=== PATIENT | male | born 1965 | race Caucasian/White ===

== ENCOUNTER 2021-01-24 22:00 | Inpatient (IN) ==
[2021-01-24 23:27] LABS: Basophils # (auto) 0.04 K/uL (0-0.2); Basophils % (auto) 0.3 %; Eosinophils # (auto) 0.28 K/uL (0-0.5); Eosinophils % (auto) 2.3 %; Hematocrit (blood only) 38.4 % (42-52); Hemoglobin 12.8 g/dL (14.0-18.0); Immature Granulocytes # (auto) 0.05 K/uL (0.00-0.02); Immature Granulocytes % (auto) 0.4 %; Lymphocytes % (auto) 18.6 %; Mean Corpuscular Hgb Conc 33.3 g/dL (32-36); Mean Corpuscular Volume 86.9 fL (80-100); Mean Platelet Volume 8.6 fL (7.4-10.4); Monocytes # (auto) 0.82 K/uL (0.11-0.59); Monocytes % (auto) 6.6 %; Neutrophils # (auto) 8.85 K/uL (1.4-6.5); Neutrophils % (auto) 71.8 %; Platelet Count 337 K/uL (130-400); RDW Coefficient of Variation 13.7 % (11.5-14.5); RDW Standard Deviation 43.7 fL (36.4-46.3); Red Blood Count 4.42 M/uL (4.7-6.1); White Blood Count 12.34 K/uL (4.8-10.8)
[2021-01-24 23:38] LABS: Appearance Urine Clear (Clear); Bacteria Urine Automated Negative (Negative); Blood Urine 2+ (Negative); Color Urine Dark Yellow; Glucose Urine UA Negative (Negative); Ketones Urine 1+ (Negative); Leukocyte Esterase Urine Negative (Negative); Nitrite Urine Negative (Negative); Protein Urine 1+ (Negative); Specific Gravity Urine 1.029 (1.000-1.030); Urobilinogen Urine Negative (Negative); pH Urine 5.5 (4.5-7.5)
[2021-01-24 23:39] LABS: Bilirubin Urine 1+ (Negative)
[2021-01-24 23:58] LABS: Acetaminophen < 2 ug/ml (10-30); Salicylate 2.2 mg/dl (2.8-20)
[2021-01-25 00:12] LABS: Albumin Level 3.9 gm/dl (3.4-5.0); BUN Creatinine Ratio 18.8 (10-20); Calcium 8.9 mg/dl (8.5-10.1); Creatinine Clr Calc Pharmacy 96.5 ml/min; Est GFR (African American) 108.9 ml/min; Potassium 3.7 mmol/L (3.5-5.1)
[2021-01-25 00:17] LABS: Amphetamines+Metham, Urine Neg (Neg); Barbiturates, Urine Neg (Neg); Benzodiazepine, Urine Neg (Neg); Cocaine, Urine Neg (Neg); MDMA (Ecstacy), Urine Neg (Neg); Methadone, Urine Neg (Neg); Opiate, Urine Pos (Neg); Phencyclidine, Urine Neg (Neg)
[2021-01-25 00:23] LABS: Albumin Globulin Ratio 1.3 (0.9-2); Bilirubin,Total 0.7 mg/dl (0.2-1); Thyroid Stimulating Hormone 1.87 uIu/ml (0.300-4.500); Total Protein 6.9 gm/dl (6.4-8.2)
--- NOTE | 2021-01-25 00:23 | Emergency Department Note ---
Impression & Plan Vikash Admit to the [facility] ED Provider Note NAME: JEFFERY PARRISH III AGE: 55 SEX: M ARRIVES VIA: Walk-In INFORMANT: Patient and mobile face worker ED PROVIDER(S): Sherie Jones DO CHIEF COMPLAINT: Acute vikash PLAN: Disposition: Admit to the [facility] Condition: Stable MEDICAL DECISION MAKING: This is a 55-year-old male patient with history of bipolar 1 disorder who presents to the emergency room department with acute vikash. Patient was brought here on a 302 warrant with state police. The patient was found walking in his underwear [place]. He missed his appointment today with his psychiatrist. His sister called police when he returned home and broke the windows in his home. The patient was evaluated and was medically cleared. He was evaluated by the ED psychiatric therapeutic case manager. The patient will require inpatient psychiatric care. His Covid testing was positive so I discussed the case with Dr. Quick from the [facility] group and he will evaluate for further management. Triage Nursing notes reviewed and agree with them. Additional history obtained from police and mobile crisis Prior medical records reviewed Vital Signs: reviewed and remarkable for hypertension Differential diagnosis: Medication noncompliance, drug abuse, acute vikash, shoulder injury, burn secondary to heating pad, ER treatment provided: Diagnostics interpreted by me: Laboratory studies: See below HPI: 55/M arrives for evaluation of vikash. The patient explains that his left him on December 24 after a of a family member. He admits that he does not of loved ones well. He became acutely manic. He describes this episode was over a dispute with a neighbor. He describes running through the [place] tonight and then breaking windows and furniture in his home. He was brought to the emergency department tonight by the police for evaluation. He does describe struggling with the police and suffering an injury to his left shoulder while struggling with them. He also describes having chronic neck and back pain. He suffered rascon to his low back from using a heating pad couple weeks ago. ROS: See above HPI for pertinent positives & negatives. A total of 10 systems reviewed and were otherwise negative. PAST MEDICAL HISTORY:Bipolar disorder PAST SURGICAL HISTORY:See Below FAMILY HISTORY:See Below SOCIAL HISTORY:Patient is currently living alone, he has a medical marijuana card. He does smoke tobacco. He does occasionally drink alcohol HOME MEDICATIONS:See list ALLERGIES:See list VITALS:See Below PHYSICAL EXAMINATION: HEENT: Head - normocephalic and atraumatic. Pupils are equal, round, and reactive to light. Extraocular eye muscles are intact, and sclera are anicteric. Nose - moist nasal mucosa without discharge. Mouth - moist buccal mucosa. Oropharynx is nonerythematous and there is no tonsillar exudate or edema noted. Neck: Supple; no cervical lymphadenopathy or JVD Heart: Regular rate and rhythm. There is a normal S1 and S2 with no murmurs, clicks, or gallops appreciated. Lungs: Clear to auscultation bilaterally with no wheezes, rales, or rhonchi. Abdomen: Soft, completely nontender, nondistended, with good bowel sounds. There are no palpable pulsatile masses or hepatosplenomegaly. There is no guarding, rigidity, or rebound noted. Extremities: 1+ edema to both lower extremities. Skin: warm and dry with good turgor and no rashes. The patient has scabbed over rascon to his low back and buttocks. He has superficial abrasions to both lower extremities which appear slightly erythematous Psych: The patient is extremely manic with a tangential thought process. He easily becomes angry with communication. He describes self-injurious behavior but does not describe being suicidal or homicidal. ED COURSE: The patient was evaluated in room A 5 along with the ED psychiatric therapeutic case manager. Laboratory studies were drawn as above. The patient was felt to be medically cleared. He was evaluated by the ED psychiatric therapeutic case manager. The patient's Covid testing was positive. I then discussed the case with Dr. Quick who will evaluate for further management. Sherie Jones DO Past Med/Surg History Social History Smoking Status: Current every day smoker Tobacco Type: Cigarettes Preferred Language: Sammarinese Feels Safe at Home: Yes Allergies Allergies Allergy/AdvReac Type Severity Reaction Status Date / Time Penicillins Allergy Unknown AMPICILIN-R Verified 01/25/21 07:30 DORIS/HIVES Home Meds Home Medications Medication Instructions Recorded Confirmed amlodipine 10 mg tablet (Norvasc) 10 mg PO DAILY 01/25/21 01/25/21 famotidine 20 mg tablet (Pepcid) 20 mg PO DAILY 01/25/21 01/25/21 gabapentin 400 mg capsule 400 mg PO DAILY 01/25/21 01/25/21 (Neurontin) hydrochlorothiazide 25 mg tablet 25 mg PO DAILY 01/25/21 01/25/21 liothyronine 5 mcg tablet (Cytomel) 5 mcg PO QAM 01/25/21 01/25/21 lisinopril 40 mg tablet (Zestril) 40 mg PO DAILY 01/25/21 01/25/21 lithium carbonate 300 mg 600 mg PO HS 01/25/21 01/25/21 tablet,extended release (Lithobid) lorazepam 0.5 mg tablet (Ativan) 0.5 mg PO DAILY PRN 01/25/21 01/25/21 omeprazole 40 mg capsule,delayed 40 mg PO DAILY 01/25/21 01/25/21 release quetiapine 200 mg tablet (Seroquel) 200 mg PO HS 01/25/21 01/25/21 quetiapine 25 mg tablet (Seroquel) 100 mg PO HS 01/25/21 01/25/21 simvastatin 20 mg tablet (Zocor) 20 mg PO HS 01/25/21 01/25/21 tizanidine 2 mg capsule (Zanaflex) 2 mg PO TID 01/25/21 01/25/21 tramadol 50 mg tablet (Ultram) 50 mg PO Q6H PRN 01/25/21 01/25/21 Results & Data (ED) Vital Signs Vital Signs - 24 hr 01/24/21 22:08 01/25/21 00:30 01/25/21 06:57 Temperature 36.3 C L Temperature Source Temporal Artery Scan Pulse Rate 94 H Pulse Rate [Finger] 80 92 H Respiratory Rate 19 18 20 Respiratory Effort / Characteristics Non-Labored Non-Labored Spontaneous Respiratory Depth Normal Normal Respiratory Pattern Regular Blood Pressure 179/90 H Blood Pressure [Left Arm] 162/89 H Blood Pressure Mean 119 Blood Pressure Mean [Left Arm] 113 Pulse Oximetry 97 98 99 Oxygen Delivery Method Room Air Room Air Sepsis Recent Fever Within 48 Hours No Sepsis New/Unexplained Change in Mental Status N/A Sepsis Action Taken by Nursing No Action Required Laboratory Data Result diagrams: 01/25/21 05:14 01/24/21 23:13 Lab Results 01/24/21 01/24/21 01/24/21 Range/Units 23:13 23:13 23:13 WBC 12.34 H (4.8-10.8) K/uL RBC 4.42 L (4.7-6.1) M/uL Hgb 12.8 L (14.0-18.0) g/dL Hct 38.4 L (42-52) % MCV 86.9 (80-100) fL MCH 29.0 (25-34) pg MCHC 33.3 (32-36) g/dL RDW Std Deviation 43.7 (36.4-46.3) fL RDW Coeff of Dmitry 13.7 (11.5-14.5) % Plt Count 337 (130-400) K/uL MPV 8.6 (7.4-10.4) fL Immature Gran % (Auto) 0.4 % Neut % (Auto) 71.8 % Lymph % (Auto) 18.6 % [place] % (Auto) 6.6 % Eos % (Auto) 2.3 % Baso % (Auto) 0.3 % Reticulocyte % (Auto) (0.5-2.0) % Neut # (Auto) 8.85 H (1.4-6.5) K/uL Lymph # (Auto) 2.30 (1.2-3.4) K/uL [place] # (Auto) 0.82 H (0.11-0.59) K/uL Eos # (Auto) 0.28 (0-0.5) K/uL Baso # (Auto) 0.04 (0-0.2) K/uL Reticulocyte # (0.02-0.10) 10^6/uL Immature Gran # (Auto) 0.05 H (0.00-0.02) K/uL PT (9.0-12.0) Seconds INR (0.9-1.1) Sodium 135 L (136-145) mmol/L Potassium 3.7 (3.5-5.1) mmol/L Chloride 105 (98-107) mmol/L Carbon Dioxide 23 (21-32) mmol/L Anion Gap 8.0 (3-11) BUN 17 (7-18) mg/dl Creatinine 0.92 (0.6-1.4) mg/dl Est Cr Clr Drug Dosing 96.5 ml/min Est GFR ( Amer) 108.9 ml/min Est GFR (Non-Af Amer) 94.0 ml/min BUN/Creatinine Ratio 18.8 (10-20) Glucose 92 (70-99) mg/dl Lactate (0.4-2.0) mmol/L Calcium 8.9 (8.5-10.1) mg/dl Iron (35-175) mcg/dl TIBC (250-450) mcg/dl Transferrin (200-360) mg/dl Ferritin (8-388) ng/ml Total Bilirubin 0.7 (0.2-1) mg/dl AST 116 H (15-37) U/L ALT 113 H (12-78) U/L Alkaline Phosphatase 70 (45-117) U/L Ammonia (11-32) umol/L Total Creatine Kinase 2588 H (39-308) U/L Total Protein 6.9 (6.4-8.2) gm/dl Albumin 3.9 (3.4-5.0) gm/dl Globulin 3.0 (2.5-4.0) gm/dl Albumin/Globulin Ratio 1.3 (0.9-2) Lipase (73-393) U/L Vitamin B12 (193-986) pg/ml Folate (>5.38) ng/ml Procalcitonin (0-0.5) ng/ml TSH 1.870 (0.300-4.500) uIu/ml Urine Color Urine Appearance (Clear) Urine pH (4.5-7.5) Ur Specific [place] (1.000-1.030) Urine Protein (Negative) Urine Glucose (UA) (Negative) Urine Ketones (Negative) Urine Blood (Negative) Urine Nitrite (Negative) Urine Bilirubin (Negative) Urine Urobilinogen (Negative) Ur Leukocyte Esterase (Negative) Urine WBC (Auto) (0-5) /hpf Urine RBC (Auto) (0-4) /hpf U Hyaline Cast (Auto) (0-5) /lpf U Epithel Cells (Auto) (0-5) /lpf Urine Bacteria (Auto) (Negative) Salicylates 2.2 L (2.8-20) mg/dl Urine Opiates Screen (Neg) Ur Methadone, Qual (Neg) Acetaminophen < 2 L (10-30) ug/ml Urine Barbiturates (Neg) Valproic Acid (50-100) mcg/ml Ur Phencyclidine (PCP) (Neg) U Amphetamin/Meth Scrn (Neg) MDMA (Ecstasy) Screen (Neg) U Benzodiazepines Scrn (Neg) [place] (0.6-1.2) mmol/L Ur Cocaine Metabolite (Neg) U Marijuana (THC) Screen (Neg) Ethyl Alcohol mg/dL (0-3) mg/dl COVID-19 Eval Order SARS-CoV-2, RNA, NAAT (NEGATIVE) Blood Type Antibody Screen 01/24/21 01/24/21 01/24/21 Range/Units 23:13 23:13 23:26 WBC (4.8-10.8) K/uL RBC (4.7-6.1) M/uL Hgb (14.0-18.0) g/dL Hct (42-52) % MCV (80-100) fL MCH (25-34) pg MCHC (32-36) g/dL RDW Std Deviation (36.4-46.3) fL RDW Coeff of Dmitry (11.5-14.5) % Plt Count (130-400) K/uL MPV (7.4-10.4) fL Immature Gran % (Auto) % Neut % (Auto) % Lymph % (Auto) % [place] % (Auto) % Eos % (Auto) % Baso % (Auto) % Reticulocyte % (Auto) (0.5-2.0) % Neut # (Auto) (1.4-6.5) K/uL Lymph # (Auto) (1.2-3.4) K/uL [place] # (Auto) (0.11-0.59) K/uL Eos # (Auto) (0-0.5) K/uL Baso # (Auto) (0-0.2) K/uL Reticulocyte # (0.02-0.10) 10^6/uL Immature Gran # (Auto) (0.00-0.02) K/uL PT (9.0-12.0) Seconds INR (0.9-1.1) Sodium (136-145) mmol/L Potassium (3.5-5.1) mmol/L Chloride (98-107) mmol/L Carbon Dioxide (21-32) mmol/L Anion Gap (3-11) BUN (7-18) mg/dl Creatinine (0.6-1.4) mg/dl Est Cr Clr Drug Dosing ml/min Est GFR ( Amer) ml/min Est GFR (Non-Af Amer) ml/min BUN/Creatinine Ratio (10-20) Glucose (70-99) mg/dl Lactate (0.4-2.0) mmol/L Calcium (8.5-10.1) mg/dl Iron (35-175) mcg/dl TIBC (250-450) mcg/dl Transferrin (200-360) mg/dl Ferritin (8-388) ng/ml Total Bilirubin (0.2-1) mg/dl AST (15-37) U/L ALT (12-78) U/L Alkaline Phosphatase (45-117) U/L Ammonia (11-32) umol/L Total Creatine Kinase (39-308) U/L Total Protein (6.4-8.2) gm/dl Albumin (3.4-5.0) gm/dl Globulin (2.5-4.0) gm/dl Albumin/Globulin Ratio (0.9-2) Lipase (73-393) U/L Vitamin B12 (193-986) pg/ml Folate (>5.38) ng/ml Procalcitonin < 0.05 (0-0.5) ng/ml TSH (0.300-4.500) uIu/ml Urine Color Dark Yellow Urine Appearance Clear (Clear) Urine pH 5.5 (4.5-7.5) Ur Specific [place] 1.029 (1.000-1.030) Urine Protein 1+ H (Negative) Urine Glucose (UA) Negative (Negative) Urine Ketones 1+ H (Negative) Urine Blood 2+ H (Negative) Urine Nitrite Negative (Negative) Urine Bilirubin 1+ H (Negative) Urine Urobilinogen Negative (Negative) Ur Leukocyte Esterase Negative (Negative) Urine WBC (Auto) 1-5 (0-5) /hpf Urine RBC (Auto) 5-10 H (0-4) /hpf U Hyaline Cast (Auto) 5-10 H (0-5) /lpf U Epithel Cells (Auto) 10-20 H (0-5) /lpf Urine Bacteria (Auto) Negative (Negative) Salicylates (2.8-20) mg/dl Urine Opiates Screen (Neg) Ur Methadone, Qual (Neg) Acetaminophen (10-30) ug/ml Urine Barbiturates (Neg) Valproic Acid (50-100) mcg/ml Ur Phencyclidine (PCP) (Neg) U Amphetamin/Meth Scrn (Neg) MDMA (Ecstasy) Screen (Neg) U Benzodiazepines Scrn (Neg) [place] (0.6-1.2) mmol/L Ur Cocaine Metabolite (Neg) U Marijuana (THC) Screen (Neg) Ethyl Alcohol mg/dL < 3.0 (0-3) mg/dl COVID-19 Eval Order SARS-CoV-2, RNA, NAAT (NEGATIVE) Blood Type Antibody Screen 01/24/21 01/25/21 01/25/21 Range/Units 23:26 01:38 01:38 WBC (4.8-10.8) K/uL RBC (4.7-6.1) M/uL Hgb (14.0-18.0) g/dL Hct (42-52) % MCV (80-100) fL MCH (25-34) pg MCHC (32-36) g/dL RDW Std Deviation (36.4-46.3) fL RDW Coeff of Dmitry (11.5-14.5) % Plt Count (130-400) K/uL MPV (7.4-10.4) fL Immature Gran % (Auto) % Neut % (Auto) % Lymph % (Auto) % [place] % (Auto) % Eos % (Auto) % Baso % (Auto) % Reticulocyte % (Auto) (0.5-2.0) % Neut # (Auto) (1.4-6.5) K/uL Lymph # (Auto) (1.2-3.4) K/uL [place] # (Auto) (0.11-0.59) K/uL Eos # (Auto) (0-0.5) K/uL Baso # (Auto) (0-0.2) K/uL Reticulocyte # (0.02-0.10) 10^6/uL Immature Gran # (Auto) (0.00-0.02) K/uL PT (9.0-12.0) Seconds INR (0.9-1.1) Sodium (136-145) mmol/L Potassium (3.5-5.1) mmol/L Chloride (98-107) mmol/L Carbon Dioxide (21-32) mmol/L Anion Gap (3-11) BUN (7-18) mg/dl Creatinine (0.6-1.4) mg/dl Est Cr Clr Drug Dosing ml/min Est GFR ( Amer) ml/min Est GFR (Non-Af Amer) ml/min BUN/Creatinine Ratio (10-20) Glucose (70-99) mg/dl Lactate (0.4-2.0) mmol/L Calcium (8.5-10.1) mg/dl Iron (35-175) mcg/dl TIBC (250-450) mcg/dl Transferrin (200-360) mg/dl Ferritin (8-388) ng/ml Total Bilirubin (0.2-1) mg/dl AST (15-37) U/L ALT (12-78) U/L Alkaline Phosphatase (45-117) U/L Ammonia (11-32) umol/L Total Creatine Kinase (39-308) U/L Total Protein (6.4-8.2) gm/dl Albumin (3.4-5.0) gm/dl Globulin (2.5-4.0) gm/dl Albumin/Globulin Ratio (0.9-2) Lipase (73-393) U/L Vitamin B12 (193-986) pg/ml Folate (>5.38) ng/ml Procalcitonin (0-0.5) ng/ml TSH (0.300-4.500) uIu/ml Urine Color Urine Appearance (Clear) Urine pH (4.5-7.5) Ur Specific [place] (1.000-1.030) Urine Protein (Negative) Urine Glucose (UA) (Negative) Urine Ketones (Negative) Urine Blood (Negative) Urine Nitrite (Negative) Urine Bilirubin (Negative) Urine Urobilinogen (Negative) Ur Leukocyte Esterase (Negative) Urine WBC (Auto) (0-5) /hpf Urine RBC (Auto) (0-4) /hpf U Hyaline Cast (Auto) (0-5) /lpf U Epithel Cells (Auto) (0-5) /lpf Urine Bacteria (Auto) (Negative) Salicylates (2.8-20) mg/dl Urine Opiates Screen Pos H (Neg) Ur Methadone, Qual Neg (Neg) Acetaminophen (10-30) ug/ml Urine Barbiturates Neg (Neg) Valproic Acid (50-100) mcg/ml Ur Phencyclidine (PCP) Neg (Neg) U Amphetamin/Meth Scrn Neg (Neg) MDMA (Ecstasy) Screen Neg (Neg) U Benzodiazepines Scrn Neg (Neg) [place] (0.6-1.2) mmol/L Ur Cocaine Metabolite Neg (Neg) U Marijuana (THC) Screen Pos H (Neg) Ethyl Alcohol mg/dL (0-3) mg/dl COVID-19 Eval Order Covid19 [facility] SARS-CoV-2, RNA, NAAT POSITIVE A* (NEGATIVE) Blood Type Antibody Screen 01/25/21 01/25/21 01/25/21 Range/Units 05:14 05:14 05:14 WBC (4.8-10.8) K/uL RBC (4.7-6.1) M/uL Hgb (14.0-18.0) g/dL Hct (42-52) % MCV (80-100) fL MCH (25-34) pg MCHC (32-36) g/dL RDW Std Deviation (36.4-46.3) fL RDW Coeff of Dmitry (11.5-14.5) % Plt Count (130-400) K/uL MPV (7.4-10.4) fL Immature Gran % (Auto) % Neut % (Auto) % Lymph % (Auto) % [place] % (Auto) % Eos % (Auto) % Baso % (Auto) % Reticulocyte % (Auto) (0.5-2.0) % Neut # (Auto) (1.4-6.5) K/uL Lymph # (Auto) (1.2-3.4) K/uL [place] # (Auto) (0.11-0.59) K/uL Eos # (Auto) (0-0.5) K/uL Baso # (Auto) (0-0.2) K/uL Reticulocyte # (0.02-0.10) 10^6/uL Immature Gran # (Auto) (0.00-0.02) K/uL PT 9.9 (9.0-12.0) Seconds INR 1.0 (0.9-1.1) Sodium (136-145) mmol/L Potassium (3.5-5.1) mmol/L Chloride (98-107) mmol/L Carbon Dioxide (21-32) mmol/L Anion Gap (3-11) BUN (7-18) mg/dl Creatinine (0.6-1.4) mg/dl Est Cr Clr Drug Dosing ml/min Est GFR ( Amer) ml/min Est GFR (Non-Af Amer) ml/min BUN/Creatinine Ratio (10-20) Glucose (70-99) mg/dl Lactate (0.4-2.0) mmol/L Calcium (8.5-10.1) mg/dl Iron (35-175) mcg/dl TIBC (250-450) mcg/dl Transferrin (200-360) mg/dl Ferritin (8-388) ng/ml Total Bilirubin (0.2-1) mg/dl AST (15-37) U/L ALT (12-78) U/L Alkaline Phosphatase (45-117) U/L Ammonia 16.0 (11-32) umol/L Total Creatine Kinase (39-308) U/L Total Protein (6.4-8.2) gm/dl Albumin (3.4-5.0) gm/dl Globulin (2.5-4.0) gm/dl Albumin/Globulin Ratio (0.9-2) Lipase (73-393) U/L Vitamin B12 (193-986) pg/ml Folate (>5.38) ng/ml Procalcitonin (0-0.5) ng/ml TSH (0.300-4.500) uIu/ml Urine Color Urine Appearance (Clear) Urine pH (4.5-7.5) Ur Specific [place] (1.000-1.030) Urine Protein (Negative) Urine Glucose (UA) (Negative) Urine Ketones (Negative) Urine Blood (Negative) Urine Nitrite (Negative) Urine Bilirubin (Negative) Urine Urobilinogen (Negative) Ur Leukocyte Esterase (Negative) Urine WBC (Auto) (0-5) /hpf Urine RBC (Auto) (0-4) /hpf U Hyaline Cast (Auto) (0-5) /lpf U Epithel Cells (Auto) (0-5) /lpf Urine Bacteria (Auto) (Negative) Salicylates (2.8-20) mg/dl Urine Opiates Screen (Neg) Ur Methadone, Qual (Neg) Acetaminophen (10-30) ug/ml Urine Barbiturates (Neg) Valproic Acid (50-100) mcg/ml Ur Phencyclidine (PCP) (Neg) U Amphetamin/Meth Scrn (Neg) MDMA (Ecstasy) Screen (Neg) U Benzodiazepines Scrn (Neg) [place] (0.6-1.2) mmol/L Ur Cocaine Metabolite (Neg) U Marijuana (THC) Screen (Neg) Ethyl Alcohol mg/dL (0-3) mg/dl COVID-19 Eval Order SARS-CoV-2, RNA, NAAT (NEGATIVE) Blood Type O Positive Antibody Screen NEGATIVE 01/25/21 01/25/21 01/25/21 Range/Units 05:14 05:14 05:14 WBC 10.20 (4.8-10.8) K/uL RBC 4.03 L (4.7-6.1) M/uL Hgb 12.1 L (14.0-18.0) g/dL Hct 35.8 L (42-52) % MCV 88.8 (80-100) fL MCH 30.0 (25-34) pg MCHC 33.8 (32-36) g/dL RDW Std Deviation 44.8 (36.4-46.3) fL RDW Coeff of Dmitry 13.8 (11.5-14.5) % Plt Count 318 (130-400) K/uL MPV 8.7 (7.4-10.4) fL Immature Gran % (Auto) 0.3 % Neut % (Auto) 66.6 % Lymph % (Auto) 23.0 % [place] % (Auto) 7.5 % Eos % (Auto) 2.3 % Baso % (Auto) 0.3 % Reticulocyte % (Auto) 1.7 (0.5-2.0) % Neut # (Auto) 6.80 H (1.4-6.5) K/uL Lymph # (Auto) 2.35 (1.2-3.4) K/uL [place] # (Auto) 0.76 H (0.11-0.59) K/uL Eos # (Auto) 0.23 (0-0.5) K/uL Baso # (Auto) 0.03 (0-0.2) K/uL Reticulocyte # 0.07 (0.02-0.10) 10^6/uL Immature Gran # (Auto) 0.03 H (0.00-0.02) K/uL PT (9.0-12.0) Seconds INR (0.9-1.1) Sodium (136-145) mmol/L Potassium (3.5-5.1) mmol/L Chloride (98-107) mmol/L Carbon Dioxide (21-32) mmol/L Anion Gap (3-11) BUN (7-18) mg/dl Creatinine (0.6-1.4) mg/dl Est Cr Clr Drug Dosing ml/min Est GFR ( Amer) ml/min Est GFR (Non-Af Amer) ml/min BUN/Creatinine Ratio (10-20) Glucose (70-99) mg/dl Lactate 0.7 (0.4-2.0) mmol/L Calcium (8.5-10.1) mg/dl Iron (35-175) mcg/dl TIBC (250-450) mcg/dl Transferrin (200-360) mg/dl Ferritin (8-388) ng/ml Total Bilirubin (0.2-1) mg/dl AST (15-37) U/L ALT (12-78) U/L Alkaline Phosphatase (45-117) U/L Ammonia (11-32) umol/L Total Creatine Kinase (39-308) U/L Total Protein (6.4-8.2) gm/dl Albumin (3.4-5.0) gm/dl Globulin (2.5-4.0) gm/dl Albumin/Globulin Ratio (0.9-2) Lipase (73-393) U/L Vitamin B12 (193-986) pg/ml Folate (>5.38) ng/ml Procalcitonin (0-0.5) ng/ml TSH (0.300-4.500) uIu/ml Urine Color Urine Appearance (Clear) Urine pH (4.5-7.5) Ur Specific [place] (1.000-1.030) Urine Protein (Negative) Urine Glucose (UA) (Negative) Urine Ketones (Negative) Urine Blood (Negative) Urine Nitrite (Negative) Urine Bilirubin (Negative) Urine Urobilinogen (Negative) Ur Leukocyte Esterase (Negative) Urine WBC (Auto) (0-5) /hpf Urine RBC (Auto) (0-4) /hpf U Hyaline Cast (Auto) (0-5) /lpf U Epithel Cells (Auto) (0-5) /lpf Urine Bacteria (Auto) (Negative) Salicylates (2.8-20) mg/dl Urine Opiates Screen (Neg) Ur Methadone, Qual (Neg) Acetaminophen (10-30) ug/ml Urine Barbiturates (Neg) Valproic Acid < 3 L (50-100) mcg/ml Ur Phencyclidine (PCP) (Neg) U Amphetamin/Meth Scrn (Neg) MDMA (Ecstasy) Screen (Neg) U Benzodiazepines Scrn (Neg) [place] 0.3 L (0.6-1.2) mmol/L Ur Cocaine Metabolite (Neg) U Marijuana (THC) Screen (Neg) Ethyl Alcohol mg/dL (0-3) mg/dl COVID-19 Eval Order SARS-CoV-2, RNA, NAAT (NEGATIVE) Blood Type Antibody Screen 01/25/21 01/25/21 Range/Units 05:14 05:14 WBC (4.8-10.8) K/uL RBC (4.7-6.1) M/uL Hgb (14.0-18.0) g/dL Hct (42-52) % MCV (80-100) fL MCH (25-34) pg MCHC (32-36) g/dL RDW Std Deviation (36.4-46.3) fL RDW Coeff of Dmitry (11.5-14.5) % Plt Count (130-400) K/uL MPV (7.4-10.4) fL Immature Gran % (Auto) % Neut % (Auto) % Lymph % (Auto) % [place] % (Auto) % Eos % (Auto) % Baso % (Auto) % Reticulocyte % (Auto) (0.5-2.0) % Neut # (Auto) (1.4-6.5) K/uL Lymph # (Auto) (1.2-3.4) K/uL [place] # (Auto) (0.11-0.59) K/uL Eos # (Auto) (0-0.5) K/uL Baso # (Auto) (0-0.2) K/uL Reticulocyte # (0.02-0.10) 10^6/uL Immature Gran # (Auto) (0.00-0.02) K/uL PT (9.0-12.0) Seconds INR (0.9-1.1) Sodium (136-145) mmol/L Potassium (3.5-5.1) mmol/L Chloride (98-107) mmol/L Carbon Dioxide (21-32) mmol/L Anion Gap (3-11) BUN (7-18) mg/dl Creatinine (0.6-1.4) mg/dl Est Cr Clr Drug Dosing ml/min Est GFR ( Amer) ml/min Est GFR (Non-Af Amer) ml/min BUN/Creatinine Ratio (10-20) Glucose (70-99) mg/dl Lactate (0.4-2.0) mmol/L Calcium (8.5-10.1) mg/dl Iron 26 L (35-175) mcg/dl TIBC 330 (250-450) mcg/dl Transferrin 231 (200-360) mg/dl Ferritin 104.6 (8-388) ng/ml Total Bilirubin (0.2-1) mg/dl AST (15-37) U/L ALT (12-78) U/L Alkaline Phosphatase (45-117) U/L Ammonia (11-32) umol/L Total Creatine Kinase (39-308) U/L Total Protein (6.4-8.2) gm/dl Albumin (3.4-5.0) gm/dl Globulin (2.5-4.0) gm/dl Albumin/Globulin Ratio (0.9-2) Lipase 122 (73-393) U/L Vitamin B12 1701 H (193-986) pg/ml Folate > 20.00 (>5.38) ng/ml Procalcitonin (0-0.5) ng/ml TSH (0.300-4.500) uIu/ml Urine Color Urine Appearance (Clear) Urine pH (4.5-7.5) Ur Specific [place] (1.000-1.030) Urine Protein (Negative) Urine Glucose (UA) (Negative) Urine Ketones (Negative) Urine Blood (Negative) Urine Nitrite (Negative) Urine Bilirubin (Negative) Urine Urobilinogen (Negative) Ur Leukocyte Esterase (Negative) Urine WBC (Auto) (0-5) /hpf Urine RBC (Auto) (0-4) /hpf U Hyaline Cast (Auto) (0-5) /lpf U Epithel Cells (Auto) (0-5) /lpf Urine Bacteria (Auto) (Negative) Salicylates (2.8-20) mg/dl Urine Opiates Screen (Neg) Ur Methadone, Qual (Neg) Acetaminophen (10-30) ug/ml Urine Barbiturates (Neg) Valproic Acid (50-100) mcg/ml Ur Phencyclidine (PCP) (Neg) U Amphetamin/Meth Scrn (Neg) MDMA (Ecstasy) Screen (Neg) U Benzodiazepines Scrn (Neg) [place] (0.6-1.2) mmol/L Ur Cocaine Metabolite (Neg) U Marijuana (THC) Screen (Neg) Ethyl Alcohol mg/dL (0-3) mg/dl COVID-19 Eval Order SARS-CoV-2, RNA, NAAT (NEGATIVE) Blood Type Antibody Screen Administered Medications Potassium Chloride 20 meq/ (Lactated Ringer's) 1,010 mls @ 80 mls/hr IV .[id number] TRACY Stop: 01/26/21 04:44 Last Admin: 01/25/21 06:12 Dose: 80 mls/hr Documented by: [id number] Discontinued Medications Acetaminophen (Acetaminophen 500 Mg Tab) Confirm Administered Dose 1,000 mg .ROUTE .STK-MED ONE Stop: 01/25/21 02:34 Last Admin: 01/25/21 02:35 Dose: 1,000 mg Documented by: [id number] Acetaminophen (Acetaminophen 500 Mg Tab) 1,000 mg PO NOW STA Stop: 01/25/21 02:38 Last Admin: 01/25/21 02:38 Dose: Not Given Documented by: [id number] Pantoprazole Sodium 40 mg/ (Syringe) 10 mls @ 5 mls/min IV NOW ONE Stop: 01/25/21 04:16 Last Admin: 01/25/21 05:23 Dose: 5 mls/min Documented by: [id number] Doxycycline Hyclate 100 mg/ (Dextrose) 110 mls @ 50 mls/hr IV NOW STA Stop: 01/25/21 06:17 Last Admin: 01/25/21 06:13 Dose: 50 mls/hr Documented by: [id number] Potassium Chloride 40 meq/ (Sodium Chloride) 1,020 mls @ 50 mls/hr IV .[id number] ONE Stop: 01/26/21 00:53 Last Admin: 01/25/21 05:42 Dose: Not Given Documented by: [id number] Lorazepam (Lorazepam 1 Mg Tab) 1 mg SL NOW STA Stop: 01/25/21 02:46 Last Admin: 01/25/21 06:19 Dose: Not Given Documented by: [id number] Lorazepam (Lorazepam 1 Mg Tab) Confirm Administered Dose 1 mg .ROUTE .STK-MED ONE Stop: 01/25/21 06:17 Last Admin: 01/25/21 06:19 Dose: 1 mg Documented by: [id number] Imaging Data Radiologist's Impression: Chest X-Ray 01/25/21 03:21 XR chest 1V portable HISTORY: sepsis COMPARISON: None. FINDINGS: The lungs are clear. Cardiac silhouette is normal in size. No pleural effusions. No pneumothorax. IMPRESSION: No acute process. ACT 112: Negative or not required by law. Electronically signed by: Shilo Sandoval M.D. 01/25/2021 7:53 AM Venous Doppler Study 01/25/21 04:16 BILATERAL LOWER EXTREMITY VENOUS DOPPLER CLINICAL HISTORY: leg swelling COMPARISON STUDY: No previous studies for comparison. TECHNIQUE: Sonography of the deep venous system of the bilateral lower extr emities was performed. Compression and augmentation were evaluated. FINDINGS: This exam was technically difficult. The bilateral common femoral, superficial femoral and popliteal veins were compressible. Augmentation was normal. Flow was shown within the deep calf vessels. IMPRESSION: Technically difficult exam but no evidence of deep venous thrombus within the bilateral lower extremities. ACT 112: Negative or not required by law. Electronically signed by: Santino Smith M.D. 01/25/2021 6:42 AM Discharge Plan Visit Data Chief Complaint: Mental Health Evaluation Stated Complaint: Mental Health Evaluation ED Provider: Sherie Jones Discharge Problem: Vikash Patient Disposition: Admitted As Inpatient Discharge Instructions Interventions: ED Discharge Assessment Last Done: 01/25/21 07:53 Forms Stand Alone Forms: [facility] [employer], Suicide Prevention Resources Prescriptions Prescriptions: No Action quetiapine [Seroquel] 25 mg tablet 100 mg PO HS RF: 0 gabapentin [Neurontin] 400 mg capsule 400 mg PO DAILY RF: 0 quetiapine [Seroquel] 200 mg tablet 200 mg PO HS RF: 0 lithium carbonate [Lithobid] 300 mg tablet extended release 600 mg PO HS RF: 0 omeprazole 40 mg capsule,delayed release(DR/EC) 40 mg PO DAILY RF: 0 liothyronine [Cytomel] 5 mcg tablet 5 mcg PO QAM RF: 0 tramadol [Ultram] 50 mg tablet 50 mg PO Q6H PRN (Reason: Pain) RF: 0 famotidine [Pepcid] 20 mg tablet 20 mg PO DAILY RF: 0 lorazepam [Ativan] 0.5 mg tablet 0.5 mg PO DAILY PRN (Reason: severe anxiety) RF: 0 amlodipine [Norvasc] 10 mg tablet 10 mg PO DAILY RF: 0 simvastatin [Zocor] 20 mg tablet 20 mg PO HS RF: 0 hydrochlorothiazide 25 mg tablet 25 mg PO DAILY RF: 0 lisinopril [Zestril] 40 mg tablet 40 mg PO DAILY RF: 0 tizanidine [Zanaflex] 2 mg Capsule 2 mg PO TID RF: 0 Referrals Referrals: Don Coffman DO [Primary Care Provider] -
[2021-01-25] MEDS ORDERED: ACETAMINOPHEN 500 MG TAB ONE (02:33)
[2021-01-25] MEDS ORDERED: ACETAMINOPHEN 500 MG TAB PO STA (02:37)
[2021-01-25] MEDS ORDERED: LORazepam 1 MG TAB SL STA (02:45)
[2021-01-25] MEDS ORDERED: DOXYCYCLINE HYCLATE 100 MG in DEXTROSE 5% 100 ML IV STA (04:06)
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
[2021-01-25] MEDS ORDERED: PANTOprazole 40 MG in SYRINGE 0 ML IV ONE (04:15)
[2021-01-25] MEDS ORDERED: POTASSIUM CHLORIDE 40 MEQ in SODIUM CHLORIDE 0.9% 1000ML 1,000 ML IV ONE (04:30)
[2021-01-25 05:34] LABS: Basophils # (auto) 0.03 K/uL (0-0.2); Basophils % (auto) 0.3 %; Eosinophils # (auto) 0.23 K/uL (0-0.5); Eosinophils % (auto) 2.3 %; Hematocrit (blood only) 35.8 % (42-52); Hemoglobin 12.1 g/dL (14.0-18.0); Immature Granulocytes # (auto) 0.03 K/uL (0.00-0.02); Immature Granulocytes % (auto) 0.3 %; Lymphocytes # (auto) 2.35 K/uL (1.2-3.4); Mean Corpuscular Hgb Conc 33.8 g/dL (32-36); Mean Corpuscular Volume 88.8 fL (80-100); Mean Platelet Volume 8.7 fL (7.4-10.4); Monocytes # (auto) 0.76 K/uL (0.11-0.59); Monocytes % (auto) 7.5 %; Neutrophils % (auto) 66.6 %; Platelet Count 318 K/uL (130-400); RDW Coefficient of Variation 13.8 % (11.5-14.5); RDW Standard Deviation 44.8 fL (36.4-46.3); Red Blood Count 4.03 M/uL (4.7-6.1); Reticulocyte % 1.7 % (0.5-2.0); Reticulocytes # 0.07 10^6/uL (0.02-0.10)
[2021-01-25 05:42] LABS: Prothrombin Time 9.9 Seconds (9.0-12.0)
[2021-01-25 06:03] LABS: Ferritin 104.6 ng/ml (8-388)
[2021-01-25] MEDS: POTASSIUM CHLORIDE 20 MEQ in LACTATED RINGER'S 1,000 ML IV SCH ×2 (06:12→18:54)
[2021-01-25] MEDS ORDERED: LORazepam 1 MG TAB ONE (06:16)
[2021-01-25 06:26] LABS: Lithium 0.3 mmol/L (0.6-1.2)
[2021-01-25 06:37] LABS: Valproic Acid < 3 mcg/ml (50-100)
--- NOTE | 2021-01-25 06:44 | Ultrasound Report ---
BILATERAL LOWER EXTREMITY VENOUS DOPPLER CLINICAL HISTORY: leg swelling COMPARISON STUDY: No previous studies for comparison. TECHNIQUE: Sonography of the deep venous system of the bilateral lower extremities was performed. Co mpression and augmentation were evaluated. FINDINGS: This exam was technically difficult. The bilateral common femoral, superficial femoral and popliteal veins were compressible. Augmentation was normal. Flow was shown within the deep calf vesse ls. IMPRESSION: Technically difficult exam but no evidence of deep venous thrombus within the bilateral l ower extremities. ACT 112: Negative or not required by law. Electronically signed by: Santino Smith M.D. 01/25/2021 6:42 AM
[2021-01-25] MEDS ORDERED: lisinopril 40 MG TAB PO STA (07:21)
--- NOTE | 2021-01-25 07:55 | XRay Report ---
XR chest 1V portable HISTORY: sepsis COMPARISON: None. FINDINGS: The lungs are clear. Cardiac silhouette is normal in size. No pleural effusions. No pneumot horax. IMPRESSION: No acute process. ACT 112: Negative or not required by law. Electronically signed by: Shilo Sandoval M.D. 01/25/2021 7:53 AM
[2021-01-25 07:57] LABS: Folate (Folic Acid) > 20.00 ng/ml (>5.38); Vitamin B12 1701 pg/ml (193-986)
[2021-01-25] MEDS ORDERED: PROMETHAZINE HCL 12.5 MG in SODIUM CHLORIDE 0.9% 50 ML IV PRN (08:37)
[2021-01-25] MEDS ORDERED: OLANZapine 10 MG/2.1 ML SDV IM PRN ×2 (08:37→13:37)
[2021-01-25] MEDS ORDERED: PANTOprazole 40 MG TAB PO SCH (09:00)
--- NOTE | 2021-01-25 10:23 | Gastrointestinal Consultation ---
Date of Consultation January 25, 2021 Assessment & Plan (1) Vikash: 55 year old male admitted w/ acute vikash, COVID-19 infection, GI asked to evaluate to r/o GI bleed. Unfortunately, no recent labs, last HGB was in 2019 at 14. He was admitted w/ HGB 12, w/o BUN elevation and HGB this AM was 12 without documentation of any black/bloody stools/emesis Would treat conservatively as there is no evidence of GI bleed Can use PO PPI 20 mg once daily Trend HGB Monitor document and output No plan for inpatient EGD/Colon He had bidirectional endoscopy in 2016, can repeat nonurgent EGD/Colon as an outpatientThank you for allowing us to participate in the care of this patient. Please call with any acute changes, questions or concerns. Please see addendum below with additional recommendation from my supervising physician. for anemia Supervising Physician Co-Signing Physician Notes I have discussed the patient's management with the advanced practitioner. Please refer to the nurse practitioner's note for the documented findings and plan of care. Chart reviewed. Currently COVID positive. No overt GI bleeding. Normal EGD/colonoscopy few years ago. Mild elevation in AST/ALT likely due to COVID. Recommend: EGD/Colonoscopy as OP in 6 weeks. Recall GI if needed. History of Present Illness Reason for Consultation: GIB Requesting Physician: Elsa Attending Physician: Rey Hunter MD History of Present Illness 55 year old male with history of bipolar 1 disorder admitted through the emergency room with acute vikash, admitted to 2E as he as found COVID + for treatment of acute vikash, cellulitis, rhabdomyolysis and chronic GI bleed. Pt was not elevated to decrease COVID-19 exposure, chart was reviewed. GI was consulted for chronic GI bleed. He has remained hemodynamically stable overnight and is hypertensive this AM. HGB on arrival was 12.8. Today, HGB 12.1. This is no BUN elevation. There is not output documented. Colonoscopy 2015; Diverticulosis in the sigmoid colon. - The examined portion of the ileum was normal. - Internal hemorrhoids. - The examination was otherwise normal on direct and retroflexion views. - Biopsies were taken with a cold forceps from the entire colon for evaluation of microscopic colitis. EGD 2015: Z-line irregular. Biopsied. - Normal stomach. Biopsied. - Normal examined duodenum. Biopsied. Colonoscopy 2010: Single diverticulum noted in the ascending and sigmoid colon. - The examination was otherwise normal. Allergies Allergy/AdvReac Type Severity Reaction Status Date / Time Penicillins Allergy Unknown AMPICILIN-R Verified 01/25/21 07:30 DORIS/HIVES Home Medications Medication Instructions Recorded Confirmed Type amlodipine 10 mg tablet (Norvasc) 10 mg PO DAILY 01/25/21 01/25/21 History famotidine 20 mg tablet (Pepcid) 20 mg PO DAILY 01/25/21 01/25/21 History gabapentin 400 mg capsule 400 mg PO DAILY 01/25/21 01/25/21 History (Neurontin) hydrochlorothiazide 25 mg tablet 25 mg PO DAILY 01/25/21 01/25/21 History liothyronine 5 mcg tablet (Cytomel) 5 mcg PO QAM 01/25/21 01/25/21 History lisinopril 40 mg tablet (Zestril) 40 mg PO DAILY 01/25/21 01/25/21 History lithium carbonate 300 mg 600 mg PO HS 01/25/21 01/25/21 History tablet,extended release (Lithobid) lorazepam 0.5 mg tablet (Ativan) 0.5 mg PO DAILY PRN 01/25/21 01/25/21 History omeprazole 40 mg capsule,delayed 40 mg PO DAILY 01/25/21 01/25/21 History release quetiapine 200 mg tablet (Seroquel) 200 mg PO HS 01/25/21 01/25/21 History quetiapine 25 mg tablet (Seroquel) 100 mg PO HS 01/25/21 01/25/21 History simvastatin 20 mg tablet (Zocor) 20 mg PO HS 01/25/21 01/25/21 History tizanidine 2 mg capsule (Zanaflex) 2 mg PO TID 01/25/21 01/25/21 History tramadol 50 mg tablet (Ultram) 50 mg PO Q6H PRN 01/25/21 01/25/21 History Patient History Social History Smoking Status: Current every day smoker Tobacco Type: Cigarettes Second Hand Exposure: No; Do You Dip or Chew Tobacco: No; Tobacco Cessation Education Requested by Patient: No Hx Alcohol Use: Yes Hx Substance Use: No Preferred Language: Maori Communication Ability: Effective Beliefs That Will Affect Care: None Current Living Situation: Alone and Spouse Current Living Situation Comment: going through divorce; possibly living alone at this time Other Information That Helps Us Care for You: No Feels Safe at Home: Yes Safety Concerns: Feels Safe At This Time Assistive Devices: Glasses Results & Data ([facility]) Vital Signs (Past 12 Hours) Vital Signs Pulse Resp BP Pulse Ox 01/25/21 06:57 92 H 20 99 01/25/21 00:30 80 18 162/89 H 98 Laboratory Results 01/25/21 01/25/21 01/25/21 Range/Units 05:14 05:14 05:14 WBC (4.8-10.8) K/uL RBC (4.7-6.1) M/uL Hgb (14.0-18.0) g/dL Hct (42-52) % MCV (80-100) fL MCH (25-34) pg MCHC (32-36) g/dL RDW Std Deviation (36.4-46.3) fL RDW Coeff of Dmitry (11.5-14.5) % Plt Count (130-400) K/uL MPV (7.4-10.4) fL Immature Gran % (Auto) % Neut % (Auto) % Lymph % (Auto) % [place] % (Auto) % Eos % (Auto) % Baso % (Auto) % Reticulocyte % (Auto) (0.5-2.0) % Neut # (Auto) (1.4-6.5) K/uL Lymph # (Auto) (1.2-3.4) K/uL [place] # (Auto) (0.11-0.59) K/uL Eos # (Auto) (0-0.5) K/uL Baso # (Auto) (0-0.2) K/uL Reticulocyte # (0.02-0.10) 10^6/uL Immature Gran # (Auto) (0.00-0.02) K/uL PT (9.0-12.0) Seconds INR (0.9-1.1) Sodium (136-145) mmol/L Potassium (3.5-5.1) mmol/L Chloride (98-107) mmol/L Carbon Dioxide (21-32) mmol/L Anion Gap (3-11) BUN (7-18) mg/dl Creatinine (0.6-1.4) mg/dl Est Cr Clr Drug Dosing ml/min Est GFR ( Amer) ml/min Est GFR (Non-Af Amer) ml/min BUN/Creatinine Ratio (10-20) Glucose (70-99) mg/dl Lactate (0.4-2.0) mmol/L Calcium (8.5-10.1) mg/dl Magnesium 2.3 (1.8-2.4) mg/dl Iron 26 L (35-175) mcg/dl TIBC 330 (250-450) mcg/dl Transferrin 231 (200-360) mg/dl Ferritin 104.6 (8-388) ng/ml Total Bilirubin (0.2-1) mg/dl AST (15-37) U/L ALT (12-78) U/L Alkaline Phosphatase (45-117) U/L Ammonia (11-32) umol/L Total Creatine Kinase (39-308) U/L Total Protein (6.4-8.2) gm/dl Albumin (3.4-5.0) gm/dl Globulin (2.5-4.0) gm/dl Albumin/Globulin Ratio (0.9-2) Lipase 122 (73-393) U/L Vitamin B12 1701 H (193-986) pg/ml Folate > 20.00 (>5.38) ng/ml Procalcitonin (0-0.5) ng/ml TSH (0.300-4.500) uIu/ml Urine Color Urine Appearance (Clear) Urine pH (4.5-7.5) Ur Specific [place] (1.000-1.030) Urine Protein (Negative) Urine Glucose (UA) (Negative) Urine Ketones (Negative) Urine Blood (Negative) Urine Nitrite (Negative) Urine Bilirubin (Negative) Urine Urobilinogen (Negative) Ur Leukocyte Esterase (Negative) Urine WBC (Auto) (0-5) /hpf Urine RBC (Auto) (0-4) /hpf U Hyaline Cast (Auto) (0-5) /lpf U Epithel Cells (Auto) (0-5) /lpf Urine Bacteria (Auto) (Negative) Salicylates (2.8-20) mg/dl Urine Opiates Screen (Neg) U Codeine Confrm GC/MS Ur Morphine (GC/MS) Ur Hydrocodone (GC/MS) Ur Norhydrocodone Ur Noroxycodone Urine Oxycodone (GC/MS) U Oxymorphone GC/MS Ur Methadone, Qual (Neg) Ur Hydromorphone (GC/MS) Acetaminophen (10-30) ug/ml Urine Barbiturates (Neg) Valproic Acid (50-100) mcg/ml Ur Phencyclidine (PCP) (Neg) U Amphetamin/Meth Scrn (Neg) MDMA (Ecstasy) Screen (Neg) U Benzodiazepines Scrn (Neg) [place] (0.6-1.2) mmol/L Ur Cocaine Metabolite (Neg) U Marijuana (THC) Screen (Neg) U Marijuana THC Carboxy Drug Screen Comment Ethyl Alcohol mg/dL (0-3) mg/dl COVID-19 Eval Order SARS-CoV-2, RNA, NAAT (NEGATIVE) Blood Type Antibody Screen 01/25/21 01/25/21 01/25/21 Range/Units 05:14 05:14 05:14 WBC 10.20 (4.8-10.8) K/uL RBC 4.03 L (4.7-6.1) M/uL Hgb 12.1 L (14.0-18.0) g/dL Hct 35.8 L (42-52) % MCV 88.8 (80-100) fL MCH 30.0 (25-34) pg MCHC 33.8 (32-36) g/dL RDW Std Deviation 44.8 (36.4-46.3) fL RDW Coeff of Dmitry 13.8 (11.5-14.5) % Plt Count 318 (130-400) K/uL MPV 8.7 (7.4-10.4) fL Immature Gran % (Auto) 0.3 % Neut % (Auto) 66.6 % Lymph % (Auto) 23.0 % [place] % (Auto) 7.5 % Eos % (Auto) 2.3 % Baso % (Auto) 0.3 % Reticulocyte % (Auto) 1.7 (0.5-2.0) % Neut # (Auto) 6.80 H (1.4-6.5) K/uL Lymph # (Auto) 2.35 (1.2-3.4) K/uL [place] # (Auto) 0.76 H (0.11-0.59) K/uL Eos # (Auto) 0.23 (0-0.5) K/uL Baso # (Auto) 0.03 (0-0.2) K/uL Reticulocyte # 0.07 (0.02-0.10) 10^6/uL Immature Gran # (Auto) 0.03 H (0.00-0.02) K/uL PT (9.0-12.0) Seconds INR (0.9-1.1) Sodium (136-145) mmol/L Potassium (3.5-5.1) mmol/L Chloride (98-107) mmol/L Carbon Dioxide (21-32) mmol/L Anion Gap (3-11) BUN (7-18) mg/dl Creatinine (0.6-1.4) mg/dl Est Cr Clr Drug Dosing ml/min Est GFR ( Amer) ml/min Est GFR (Non-Af Amer) ml/min BUN/Creatinine Ratio (10-20) Glucose (70-99) mg/dl Lactate 0.7 (0.4-2.0) mmol/L Calcium (8.5-10.1) mg/dl Magnesium (1.8-2.4) mg/dl Iron (35-175) mcg/dl TIBC (250-450) mcg/dl Transferrin (200-360) mg/dl Ferritin (8-388) ng/ml Total Bilirubin (0.2-1) mg/dl AST (15-37) U/L ALT (12-78) U/L Alkaline Phosphatase (45-117) U/L Ammonia (11-32) umol/L Total Creatine Kinase (39-308) U/L Total Protein (6.4-8.2) gm/dl Albumin (3.4-5.0) gm/dl Globulin (2.5-4.0) gm/dl Albumin/Globulin Ratio (0.9-2) Lipase (73-393) U/L Vitamin B12 (193-986) pg/ml Folate (>5.38) ng/ml Procalcitonin (0-0.5) ng/ml TSH (0.300-4.500) uIu/ml Urine Color Urine Appearance (Clear) Urine pH (4.5-7.5) Ur Specific [place] (1.000-1.030) Urine Protein (Negative) Urine Glucose (UA) (Negative) Urine Ketones (Negative) Urine Blood (Negative) Urine Nitrite (Negative) Urine Bilirubin (Negative) Urine Urobilinogen (Negative) Ur Leukocyte Esterase (Negative) Urine WBC (Auto) (0-5) /hpf Urine RBC (Auto) (0-4) /hpf U Hyaline Cast (Auto) (0-5) /lpf U Epithel Cells (Auto) (0-5) /lpf Urine Bacteria (Auto) (Negative) Salicylates (2.8-20) mg/dl Urine Opiates Screen (Neg) U Codeine Confrm GC/MS Ur Morphine (GC/MS) Ur Hydrocodone (GC/MS) Ur Norhydrocodone Ur Noroxycodone Urine Oxycodone (GC/MS) U Oxymorphone GC/MS Ur Methadone, Qual (Neg) Ur Hydromorphone (GC/MS) Acetaminophen (10-30) ug/ml Urine Barbiturates (Neg) Valproic Acid < 3 L (50-100) mcg/ml Ur Phencyclidine (PCP) (Neg) U Amphetamin/Meth Scrn (Neg) MDMA (Ecstasy) Screen (Neg) U Benzodiazepines Scrn (Neg) [place] 0.3 L (0.6-1.2) mmol/L Ur Cocaine Metabolite (Neg) U Marijuana (THC) Screen (Neg) U Marijuana THC Carboxy Drug Screen Comment Ethyl Alcohol mg/dL (0-3) mg/dl COVID-19 Eval Order SARS-CoV-2, RNA, NAAT (NEGATIVE) Blood Type Antibody Screen 01/25/21 01/25/21 01/25/21 Range/Units 05:14 05:14 05:14 WBC (4.8-10.8) K/uL RBC (4.7-6.1) M/uL Hgb (14.0-18.0) g/dL Hct (42-52) % MCV (80-100) fL MCH (25-34) pg MCHC (32-36) g/dL RDW Std Deviation (36.4-46.3) fL RDW Coeff of Dmitry (11.5-14.5) % Plt Count (130-400) K/uL MPV (7.4-10.4) fL Immature Gran % (Auto) % Neut % (Auto) % Lymph % (Auto) % [place] % (Auto) % Eos % (Auto) % Baso % (Auto) % Reticulocyte % (Auto) (0.5-2.0) % Neut # (Auto) (1.4-6.5) K/uL Lymph # (Auto) (1.2-3.4) K/uL [place] # (Auto) (0.11-0.59) K/uL Eos # (Auto) (0-0.5) K/uL Baso # (Auto) (0-0.2) K/uL Reticulocyte # (0.02-0.10) 10^6/uL Immature Gran # (Auto) (0.00-0.02) K/uL PT 9.9 (9.0-12.0) Seconds INR 1.0 (0.9-1.1) Sodium (136-145) mmol/L Potassium (3.5-5.1) mmol/L Chloride (98-107) mmol/L Carbon Dioxide (21-32) mmol/L Anion Gap (3-11) BUN (7-18) mg/dl Creatinine (0.6-1.4) mg/dl Est Cr Clr Drug Dosing ml/min Est GFR ( Amer) ml/min Est GFR (Non-Af Amer) ml/min BUN/Creatinine Ratio (10-20) Glucose (70-99) mg/dl Lactate (0.4-2.0) mmol/L Calcium (8.5-10.1) mg/dl Magnesium (1.8-2.4) mg/dl Iron (35-175) mcg/dl TIBC (250-450) mcg/dl Transferrin (200-360) mg/dl Ferritin (8-388) ng/ml Total Bilirubin (0.2-1) mg/dl AST (15-37) U/L ALT (12-78) U/L Alkaline Phosphatase (45-117) U/L Ammonia 16.0 (11-32) umol/L Total Creatine Kinase (39-308) U/L Total Protein (6.4-8.2) gm/dl Albumin (3.4-5.0) gm/dl Globulin (2.5-4.0) gm/dl Albumin/Globulin Ratio (0.9-2) Lipase (73-393) U/L Vitamin B12 (193-986) pg/ml Folate (>5.38) ng/ml Procalcitonin (0-0.5) ng/ml TSH (0.300-4.500) uIu/ml Urine Color Urine Appearance (Clear) Urine pH (4.5-7.5) Ur Specific [place] (1.000-1.030) Urine Protein (Negative) Urine Glucose (UA) (Negative) Urine Ketones (Negative) Urine Blood (Negative) Urine Nitrite (Negative) Urine Bilirubin (Negative) Urine Urobilinogen (Negative) Ur Leukocyte Esterase (Negative) Urine WBC (Auto) (0-5) /hpf Urine RBC (Auto) (0-4) /hpf U Hyaline Cast (Auto) (0-5) /lpf U Epithel Cells (Auto) (0-5) /lpf Urine Bacteria (Auto) (Negative) Salicylates (2.8-20) mg/dl Urine Opiates Screen (Neg) U Codeine Confrm GC/MS Ur Morphine (GC/MS) Ur Hydrocodone (GC/MS) Ur Norhydrocodone Ur Noroxycodone Urine Oxycodone (GC/MS) U Oxymorphone GC/MS Ur Methadone, Qual (Neg) Ur Hydromorphone (GC/MS) Acetaminophen (10-30) ug/ml Urine Barbiturates (Neg) Valproic Acid (50-100) mcg/ml Ur Phencyclidine (PCP) (Neg) U Amphetamin/Meth Scrn (Neg) MDMA (Ecstasy) Screen (Neg) U Benzodiazepines Scrn (Neg) [place] (0.6-1.2) mmol/L Ur Cocaine Metabolite (Neg) U Marijuana (THC) Screen (Neg) U Marijuana THC Carboxy Drug Screen Comment Ethyl Alcohol mg/dL (0-3) mg/dl COVID-19 Eval Order SARS-CoV-2, RNA, NAAT (NEGATIVE) Blood Type O Positive Antibody Screen NEGATIVE 01/25/21 01/25/21 01/24/21 Range/Units 01:38 01:38 23:26 WBC (4.8-10.8) K/uL RBC (4.7-6.1) M/uL Hgb (14.0-18.0) g/dL Hct (42-52) % MCV (80-100) fL MCH (25-34) pg MCHC (32-36) g/dL RDW Std Deviation (36.4-46.3) fL RDW Coeff of Dmitry (11.5-14.5) % Plt Count (130-400) K/uL MPV (7.4-10.4) fL Immature Gran % (Auto) % Neut % (Auto) % Lymph % (Auto) % [place] % (Auto) % Eos % (Auto) % Baso % (Auto) % Reticulocyte % (Auto) (0.5-2.0) % Neut # (Auto) (1.4-6.5) K/uL Lymph # (Auto) (1.2-3.4) K/uL [place] # (Auto) (0.11-0.59) K/uL Eos # (Auto) (0-0.5) K/uL Baso # (Auto) (0-0.2) K/uL Reticulocyte # (0.02-0.10) 10^6/uL Immature Gran # (Auto) (0.00-0.02) K/uL PT (9.0-12.0) Seconds INR (0.9-1.1) Sodium (136-145) mmol/L Potassium (3.5-5.1) mmol/L Chloride (98-107) mmol/L Carbon Dioxide (21-32) mmol/L Anion Gap (3-11) BUN (7-18) mg/dl Creatinine (0.6-1.4) mg/dl Est Cr Clr Drug Dosing ml/min Est GFR ( Amer) ml/min Est GFR (Non-Af Amer) ml/min BUN/Creatinine Ratio (10-20) Glucose (70-99) mg/dl Lactate (0.4-2.0) mmol/L Calcium (8.5-10.1) mg/dl Magnesium (1.8-2.4) mg/dl Iron (35-175) mcg/dl TIBC (250-450) mcg/dl Transferrin (200-360) mg/dl Ferritin (8-388) ng/ml Total Bilirubin (0.2-1) mg/dl AST (15-37) U/L ALT (12-78) U/L Alkaline Phosphatase (45-117) U/L Ammonia (11-32) umol/L Total Creatine Kinase (39-308) U/L Total Protein (6.4-8.2) gm/dl Albumin (3.4-5.0) gm/dl Globulin (2.5-4.0) gm/dl Albumin/Globulin Ratio (0.9-2) Lipase (73-393) U/L Vitamin B12 (193-986) pg/ml Folate (>5.38) ng/ml Procalcitonin (0-0.5) ng/ml TSH (0.300-4.500) uIu/ml Urine Color Urine Appearance (Clear) Urine pH (4.5-7.5) Ur Specific [place] (1.000-1.030) Urine Protein (Negative) Urine Glucose (UA) (Negative) Urine Ketones (Negative) Urine Blood (Negative) Urine Nitrite (Negative) Urine Bilirubin (Negative) Urine Urobilinogen (Negative) Ur Leukocyte Esterase (Negative) Urine WBC (Auto) (0-5) /hpf Urine RBC (Auto) (0-4) /hpf U Hyaline Cast (Auto) (0-5) /lpf U Epithel Cells (Auto) (0-5) /lpf Urine Bacteria (Auto) (Negative) Salicylates (2.8-20) mg/dl Urine Opiates Screen (Neg) U Codeine Confrm GC/MS Pending Ur Morphine (GC/MS) Pending Ur Hydrocodone (GC/MS) Pending Ur Norhydrocodone Pending Ur Noroxycodone Pending Urine Oxycodone (GC/MS) Pending U Oxymorphone GC/MS Pending Ur Methadone, Qual (Neg) Ur Hydromorphone (GC/MS) Pending Acetaminophen (10-30) ug/ml Urine Barbiturates (Neg) Valproic Acid (50-100) mcg/ml Ur Phencyclidine (PCP) (Neg) U Amphetamin/Meth Scrn (Neg) MDMA (Ecstasy) Screen (Neg) U Benzodiazepines Scrn (Neg) [place] (0.6-1.2) mmol/L Ur Cocaine Metabolite (Neg) U Marijuana (THC) Screen (Neg) U Marijuana THC Carboxy Pending Drug Screen Comment Pending Ethyl Alcohol mg/dL (0-3) mg/dl COVID-19 Eval [facility], RNA, NAAT POSITIVE A* (NEGATIVE) Blood Type Antibody Screen 01/24/21 01/24/21 01/24/21 Range/Units 23:26 23:26 23:13 WBC (4.8-10.8) K/uL RBC (4.7-6.1) M/uL Hgb (14.0-18.0) g/dL Hct (42-52) % MCV (80-100) fL MCH (25-34) pg MCHC (32-36) g/dL RDW Std Deviation (36.4-46.3) fL RDW Coeff of Dmitry (11.5-14.5) % Plt Count (130-400) K/uL MPV (7.4-10.4) fL Immature Gran % (Auto) % Neut % (Auto) % Lymph % (Auto) % [place] % (Auto) % Eos % (Auto) % Baso % (Auto) % Reticulocyte % (Auto) (0.5-2.0) % Neut # (Auto) (1.4-6.5) K/uL Lymph # (Auto) (1.2-3.4) K/uL [place] # (Auto) (0.11-0.59) K/uL Eos # (Auto) (0-0.5) K/uL Baso # (Auto) (0-0.2) K/uL Reticulocyte # (0.02-0.10) 10^6/uL Immature Gran # (Auto) (0.00-0.02) K/uL PT (9.0-12.0) Seconds INR (0.9-1.1) Sodium (136-145) mmol/L Potassium (3.5-5.1) mmol/L Chloride (98-107) mmol/L Carbon Dioxide (21-32) mmol/L Anion Gap (3-11) BUN (7-18) mg/dl Creatinine (0.6-1.4) mg/dl Est Cr Clr Drug Dosing ml/min Est GFR ( Amer) ml/min Est GFR (Non-Af Amer) ml/min BUN/Creatinine Ratio (10-20) Glucose (70-99) mg/dl Lactate (0.4-2.0) mmol/L Calcium (8.5-10.1) mg/dl Magnesium (1.8-2.4) mg/dl Iron (35-175) mcg/dl TIBC (250-450) mcg/dl Transferrin (200-360) mg/dl Ferritin (8-388) ng/ml Total Bilirubin (0.2-1) mg/dl AST (15-37) U/L ALT (12-78) U/L Alkaline Phosphatase (45-117) U/L Ammonia (11-32) umol/L Total Creatine Kinase (39-308) U/L Total Protein (6.4-8.2) gm/dl Albumin (3.4-5.0) gm/dl Globulin (2.5-4.0) gm/dl Albumin/Globulin Ratio (0.9-2) Lipase (73-393) U/L Vitamin B12 (193-986) pg/ml Folate (>5.38) ng/ml Procalcitonin < 0.05 (0-0.5) ng/ml TSH (0.300-4.500) uIu/ml Urine Color Dark Yellow Urine Appearance Clear (Clear) Urine pH 5.5 (4.5-7.5) Ur Specific [place] 1.029 (1.000-1.030) Urine Protein 1+ H (Negative) Urine Glucose (UA) Negative (Negative) Urine Ketones 1+ H (Negative) Urine Blood 2+ H (Negative) Urine Nitrite Negative (Negative) Urine Bilirubin 1+ H (Negative) Urine Urobilinogen Negative (Negative) Ur Leukocyte Esterase Negative (Negative) Urine WBC (Auto) 1-5 (0-5) /hpf Urine RBC (Auto) 5-10 H (0-4) /hpf U Hyaline Cast (Auto) 5-10 H (0-5) /lpf U Epithel Cells (Auto) 10-20 H (0-5) /lpf Urine Bacteria (Auto) Negative (Negative) Salicylates (2.8-20) mg/dl Urine Opiates Screen Pos H (Neg) U Codeine Confrm GC/MS Ur Morphine (GC/MS) Ur Hydrocodone (GC/MS) Ur Norhydrocodone Ur Noroxycodone Urine Oxycodone (GC/MS) U Oxymorphone GC/MS Ur Methadone, Qual Neg (Neg) Ur Hydromorphone (GC/MS) Acetaminophen (10-30) ug/ml Urine Barbiturates Neg (Neg) Valproic Acid (50-100) mcg/ml Ur Phencyclidine (PCP) Neg (Neg) U Amphetamin/Meth Scrn Neg (Neg) MDMA (Ecstasy) Screen Neg (Neg) U Benzodiazepines Scrn Neg (Neg) [place] (0.6-1.2) mmol/L Ur Cocaine Metabolite Neg (Neg) U Marijuana (THC) Screen Pos H (Neg) U Marijuana THC Carboxy Drug Screen Comment Ethyl Alcohol mg/dL (0-3) mg/dl COVID-19 Eval Order SARS-CoV-2, RNA, NAAT (NEGATIVE) Blood Type Antibody Screen 01/24/21 01/24/21 01/24/21 Range/Units 23:13 23:13 23:13 WBC (4.8-10.8) K/uL RBC (4.7-6.1) M/uL Hgb (14.0-18.0) g/dL Hct (42-52) % MCV (80-100) fL MCH (25-34) pg MCHC (32-36) g/dL RDW Std Deviation (36.4-46.3) fL RDW Coeff of Dmitry (11.5-14.5) % Plt Count (130-400) K/uL MPV (7.4-10.4) fL Immature Gran % (Auto) % Neut % (Auto) % Lymph % (Auto) % [place] % (Auto) % Eos % (Auto) % Baso % (Auto) % Reticulocyte % (Auto) (0.5-2.0) % Neut # (Auto) (1.4-6.5) K/uL Lymph # (Auto) (1.2-3.4) K/uL [place] # (Auto) (0.11-0.59) K/uL Eos # (Auto) (0-0.5) K/uL Baso # (Auto) (0-0.2) K/uL Reticulocyte # (0.02-0.10) 10^6/uL Immature Gran # (Auto) (0.00-0.02) K/uL PT (9.0-12.0) Seconds INR (0.9-1.1) Sodium 135 L (136-145) mmol/L Potassium 3.7 (3.5-5.1) mmol/L Chloride 105 (98-107) mmol/L Carbon Dioxide 23 (21-32) mmol/L Anion Gap 8.0 (3-11) BUN 17 (7-18) mg/dl Creatinine 0.92 (0.6-1.4) mg/dl Est Cr Clr Drug Dosing 96.5 ml/min Est GFR ( Amer) 108.9 ml/min Est GFR (Non-Af Amer) 94.0 ml/min BUN/Creatinine Ratio 18.8 (10-20) Glucose 92 (70-99) mg/dl Lactate (0.4-2.0) mmol/L Calcium 8.9 (8.5-10.1) mg/dl Magnesium (1.8-2.4) mg/dl Iron (35-175) mcg/dl TIBC (250-450) mcg/dl Transferrin (200-360) mg/dl Ferritin (8-388) ng/ml Total Bilirubin 0.7 (0.2-1) mg/dl AST 116 H (15-37) U/L ALT 113 H (12-78) U/L Alkaline Phosphatase 70 (45-117) U/L Ammonia (11-32) umol/L Total Creatine Kinase 2588 H (39-308) U/L Total Protein 6.9 (6.4-8.2) gm/dl Albumin 3.9 (3.4-5.0) gm/dl Globulin 3.0 (2.5-4.0) gm/dl Albumin/Globulin Ratio 1.3 (0.9-2) Lipase (73-393) U/L Vitamin B12 (193-986) pg/ml Folate (>5.38) ng/ml Procalcitonin (0-0.5) ng/ml TSH 1.870 (0.300-4.500) uIu/ml Urine Color Urine Appearance (Clear) Urine pH (4.5-7.5) Ur Specific [place] (1.000-1.030) Urine Protein (Negative) Urine Glucose (UA) (Negative) Urine Ketones (Negative) Urine Blood (Negative) Urine Nitrite (Negative) Urine Bilirubin (Negative) Urine Urobilinogen (Negative) Ur Leukocyte Esterase (Negative) Urine WBC (Auto) (0-5) /hpf Urine RBC (Auto) (0-4) /hpf U Hyaline Cast (Auto) (0-5) /lpf U Epithel Cells (Auto) (0-5) /lpf Urine Bacteria (Auto) (Negative) Salicylates 2.2 L (2.8-20) mg/dl Urine Opiates Screen (Neg) U Codeine Confrm GC/MS Ur Morphine (GC/MS) Ur Hydrocodone (GC/MS) Ur Norhydrocodone Ur Noroxycodone Urine Oxycodone (GC/MS) U Oxymorphone GC/MS Ur Methadone, Qual (Neg) Ur Hydromorphone (GC/MS) Acetaminophen < 2 L (10-30) ug/ml Urine Barbiturates (Neg) Valproic Acid (50-100) mcg/ml Ur Phencyclidine (PCP) (Neg) U Amphetamin/Meth Scrn (Neg) MDMA (Ecstasy) Screen (Neg) U Benzodiazepines Scrn (Neg) [place] (0.6-1.2) mmol/L Ur Cocaine Metabolite (Neg) U Marijuana (THC) Screen (Neg) U Marijuana THC Carboxy Drug Screen Comment Ethyl Alcohol mg/dL < 3.0 (0-3) mg/dl COVID-19 Eval Order SARS-CoV-2, RNA, NAAT (NEGATIVE) Blood Type Antibody Screen 01/24/21 Range/Units 23:13 WBC 12.34 H (4.8-10.8) K/uL RBC 4.42 L (4.7-6.1) M/uL Hgb 12.8 L (14.0-18.0) g/dL Hct 38.4 L (42-52) % MCV 86.9 (80-100) fL MCH 29.0 (25-34) pg MCHC 33.3 (32-36) g/dL RDW Std Deviation 43.7 (36.4-46.3) fL RDW Coeff of Dmitry 13.7 (11.5-14.5) % Plt Count 337 (130-400) K/uL MPV 8.6 (7.4-10.4) fL Immature Gran % (Auto) 0.4 % Neut % (Auto) 71.8 % Lymph % (Auto) 18.6 % [place] % (Auto) 6.6 % Eos % (Auto) 2.3 % Baso % (Auto) 0.3 % Reticulocyte % (Auto) (0.5-2.0) % Neut # (Auto) 8.85 H (1.4-6.5) K/uL Lymph # (Auto) 2.30 (1.2-3.4) K/uL [place] # (Auto) 0.82 H (0.11-0.59) K/uL Eos # (Auto) 0.28 (0-0.5) K/uL Baso # (Auto) 0.04 (0-0.2) K/uL Reticulocyte # (0.02-0.10) 10^6/uL Immature Gran # (Auto) 0.05 H (0.00-0.02) K/uL PT (9.0-12.0) Seconds INR (0.9-1.1) Sodium (136-145) mmol/L Potassium (3.5-5.1) mmol/L Chloride (98-107) mmol/L Carbon Dioxide (21-32) mmol/L Anion Gap (3-11) BUN (7-18) mg/dl Creatinine (0.6-1.4) mg/dl Est Cr Clr Drug Dosing ml/min Est GFR ( Amer) ml/min Est GFR (Non-Af Amer) ml/min BUN/Creatinine Ratio (10-20) Glucose (70-99) mg/dl Lactate (0.4-2.0) mmol/L Calcium (8.5-10.1) mg/dl Magnesium (1.8-2.4) mg/dl Iron (35-175) mcg/dl TIBC (250-450) mcg/dl Transferrin (200-360) mg/dl Ferritin (8-388) ng/ml Total Bilirubin (0.2-1) mg/dl AST (15-37) U/L ALT (12-78) U/L Alkaline Phosphatase (45-117) U/L Ammonia (11-32) umol/L Total Creatine Kinase (39-308) U/L Total Protein (6.4-8.2) gm/dl Albumin (3.4-5.0) gm/dl Globulin (2.5-4.0) gm/dl Albumin/Globulin Ratio (0.9-2) Lipase (73-393) U/L Vitamin B12 (193-986) pg/ml Folate (>5.38) ng/ml Procalcitonin (0-0.5) ng/ml TSH (0.300-4.500) uIu/ml Urine Color Urine Appearance (Clear) Urine pH (4.5-7.5) Ur Specific [place] (1.000-1.030) Urine Protein (Negative) Urine Glucose (UA) (Negative) Urine Ketones (Negative) Urine Blood (Negative) Urine Nitrite (Negative) Urine Bilirubin (Negative) Urine Urobilinogen (Negative) Ur Leukocyte Esterase (Negative) Urine WBC (Auto) (0-5) /hpf Urine RBC (Auto) (0-4) /hpf U Hyaline Cast (Auto) (0-5) /lpf U Epithel Cells (Auto) (0-5) /lpf Urine Bacteria (Auto) (Negative) Salicylates (2.8-20) mg/dl Urine Opiates Screen (Neg) U Codeine Confrm GC/MS Ur Morphine (GC/MS) Ur Hydrocodone (GC/MS) Ur Norhydrocodone Ur Noroxycodone Urine Oxycodone (GC/MS) U Oxymorphone GC/MS Ur Methadone, Qual (Neg) Ur Hydromorphone (GC/MS) Acetaminophen (10-30) ug/ml Urine Barbiturates (Neg) Valproic Acid (50-100) mcg/ml Ur Phencyclidine (PCP) (Neg) U Amphetamin/Meth Scrn (Neg) MDMA (Ecstasy) Screen (Neg) U Benzodiazepines Scrn (Neg) [place] (0.6-1.2) mmol/L Ur Cocaine Metabolite (Neg) U Marijuana (THC) Screen (Neg) U Marijuana THC Carboxy Drug Screen Comment Ethyl Alcohol mg/dL (0-3) mg/dl COVID-19 Eval Order SARS-CoV-2, RNA, NAAT (NEGATIVE) Blood Type Antibody Screen
[2021-01-25 11:33] LABS: Hematocrit (blood only) 35.8 % (42-52)
[2021-01-25] MEDS: traMADol HCL 50 MG TABLET PO PRN ×2 (11:38→20:32)
[2021-01-25] MEDS: ACETAMINOPHEN 325 MG TAB PO PRN (11:38)
[2021-01-25] MEDS: GABAPENTIN 400 MG CAP PO SCH (11:39)
[2021-01-25] MEDS: amLODIPine BESYLATE 5 MG TAB PO SCH (11:39)
[2021-01-25] MEDS: LIOTHYRONINE SODIUM 5 MCG TAB PO SCH (11:39)
[2021-01-25] MEDS: LITHIUM ORAL SOLN 300 MG/5ML 500ML PO SCH (14:10)
--- NOTE | 2021-01-25 18:23 | Hospitalist Progress Note ---
Date of Service January 25, 2021 Assessment & Plan (1) Shi: Plan: Mood disorder Present on admission after police found walking in the wood naked Denies any suicidal thought but he is being on a 302 warrant Psych on board Will not be able to transfer to the mental health unit since pt is COVID 19 positive Continue [place] and Zyprexa Continue 1 to 1 sitter Pt cannot sign AMA B/L LE cellulitis Sepsis ruled out Doppler of LE showed no evidence of deep venous thrombus within the bilateral lower extremities. Continue doxycycline PO BID GI bleed Hgb 12.8 on admission Hgb stable today at 12 Gastro on board No plan for EGD/Colonoscopy for this admission Plan for outpatient EGD/Colonoscopy in 6 weeks Continue conservative management Continue clear liquid diet Continue PO PPI BID Elevated Liver Enzymes Mostly due to COVID 19/acute illness Liver enzymes with AST 116 and ALT 113 Continue monitor Liver enzymes Elevated CPK level [place] CPK 2588 on admission received IVF Will monitor CPK level in am Hypothyroidism Continue Cytomel for now Psych recommended to change to Synthroid but pt refused since psych provider was concerned that Cytomel may be more activating than Syndthroid and thyroid supplements can contribute to shi TSH normal DVT px on SCD due to GI bleed CODE status FULL Code Disposition Pt cannot sign AMA Patient requesting for his to be updated of plan of care. Ms. Mendieta Adalgisa, contact #[phone]. Admission and Anticipated Discharge Date Admission Date: January 25, 2021 Subjective Pt was seen and examined for follow up of suicidal ideation/manic, COVID 19 and GI bleed Standing in his room with no acute distress with 1 to 1 sitter Pt said that he feels fine He said that he is not having any bloody stool He denies any upper respiratory symptoms He said that he is not having any respiratory symptoms He denies any suicidal thought He would like to go home tomorrow to go clean his the house before his goes in the house Denies any chest pain, palpitation, dizziness and SOB Review of Systems 2 Review of Systems: All systems reviewed & are unremarkable except as noted in Subjective Physical Exam Physical Exam: General- No acute distress Head- atraumatic Eyes- PERRL, EOMI, ENT- oropharynx clear Neck- supple, no JVD Lungs- clear to auscultation Heart- regular rhythm; no murmur Abdomen- normal bowel sounds, soft, nontender Extremities- no calf tenderness Neuro- alert, oriented x 3; PERRL, EOMI; no facial palsy; no dysarthria Skin- warm & dry Results & Data Results & Data ([facility]) Vital Signs (Past 12 Hours) Vital Signs Temp Pulse Pulse Resp BP Pulse Ox 01/25/21 11:24 37.1 C 82 18 141/75 H 97 01/25/21 08:37 36.7 C 80 20 145/78 H 98 01/25/21 06:57 92 H 20 99
--- NOTE | 2021-01-25 18:39 | Psychiatric Consultation ---
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 (130-400) K/uL MPV 8.6 (7.4-10.4) fL Immature Gran % (Auto) 0.4 % Neut % (Auto) 71.8 % Lymph % (Auto) 18.6 % [place] % (Auto) 6.6 % Eos % (Auto) 2.3 % Baso % (Auto) 0.3 % Reticulocyte % (Auto) (0.5-2.0) % Neut # (Auto) 8.85 H (1.4-6.5) K/uL Lymph # (Auto) 2.30 (1.2-3.4) K/uL [place] # (Auto) 0.82 H (0.11-0.59) K/uL Eos # (Auto) 0.28 (0-0.5) K/uL Baso # (Auto) 0.04 (0-0.2) K/uL Reticulocyte # (0.02-0.10) 10^6/uL Immature Gran # (Auto) 0.05 H (0.00-0.02) K/uL PT (9.0-12.0) Seconds INR (0.9-1.1) Sodium 135 L (136-145) mmol/L Potassium 3.7 (3.5-5.1) mmol/L Chloride 105 (98-107) mmol/L Carbon Dioxide 23 (21-32) mmol/L Anion Gap 8.0 (3-11) BUN 17 (7-18) mg/dl Creatinine 0.92 (0.6-1.4) mg/dl Est Cr Clr Drug Dosing 96.5 ml/min Est GFR ( Amer) 108.9 ml/min Est GFR (Non-Af Amer) 94.0 ml/min BUN/Creatinine Ratio 18.8 (10-20) Glucose 92 (70-99) mg/dl Lactate (0.4-2.0) mmol/L Calcium 8.9 (8.5-10.1) mg/dl Magnesium (1.8-2.4) mg/dl Iron (35-175) mcg/dl TIBC (250-450) mcg/dl Transferrin (200-360) mg/dl Ferritin (8-388) ng/ml Total Bilirubin 0.7 (0.2-1) mg/dl AST 116 H (15-37) U/L ALT 113 H (12-78) U/L Alkaline Phosphatase 70 (45-117) U/L Ammonia (11-32) umol/L Total Creatine Kinase 2588 H (39-308) U/L Total Protein 6.9 (6.4-8.2) gm/dl Albumin 3.9 (3.4-5.0) gm/dl Globulin 3.0 (2.5-4.0) gm/dl Albumin/Globulin Ratio 1.3 (0.9-2) Lipase (73-393) U/L Vitamin B12 (193-986) pg/ml Folate (>5.38) ng/ml Procalcitonin (0-0.5) ng/ml TSH 1.870 (0.300-4.500) uIu/ml Urine Color Urine Appearance (Clear) Urine pH (4.5-7.5) Ur Specific [place] (1.000-1.030) Urine Protein (Negative) Urine Glucose (UA) (Negative) Urine Ketones (Negative) Urine Blood (Negative) Urine Nitrite (Negative) Urine Bilirubin (Negative) Urine Urobilinogen (Negative) Ur Leukocyte Esterase (Negative) Urine WBC (Auto) (0-5) /hpf Urine RBC (Auto) (0-4) /hpf U Hyaline Cast (Auto) (0-5) /lpf U Epithel Cells (Auto) (0-5) /lpf Urine Bacteria (Auto) (Negative) Salicylates (2.8-20) mg/dl Urine Opiates Screen (Neg) U Codeine Confrm GC/MS Ur Morphine (GC/MS) Ur Hydrocodone (GC/MS) Ur Norhydrocodone Ur Noroxycodone Urine Oxycodone (GC/MS) U Oxymorphone GC/MS Ur Methadone, Qual (Neg) Ur Hydromorphone (GC/MS) Acetaminophen (10-30) ug/ml Urine Barbiturates (Neg) Valproic Acid (50-100) mcg/ml Ur Phencyclidine (PCP) (Neg) U Amphetamin/Meth Scrn (Neg) MDMA (Ecstasy) Screen (Neg) U Benzodiazepines Scrn (Neg) [place] (0.6-1.2) mmol/L Ur Cocaine Metabolite (Neg) U Marijuana (THC) Screen (Neg) U Marijuana THC Carboxy Drug Screen Comment Ethyl Alcohol mg/dL (0-3) mg/dl COVID-19 Eval Order SARS-CoV-2, RNA, NAAT (NEGATIVE) Blood Type Antibody Screen Medications Administered Acetaminophen (Acetaminophen 325 Mg Tab) 325 mg PO Q6H PRN PRN Reason: Mild Pain Stop: 02/24/21 08:36 Last Admin: 01/25/21 11:38 Dose: 325 mg Documented by: [id number] Amlodipine Besylate (Amlodipine Besylate 5 Mg Tab) 10 mg PO DAILY [facility] Stop: 02/24/21 08:59 Last Admin: 01/25/21 11:39 Dose: 10 mg Documented by: [id number] Gabapentin (Gabapentin 400 Mg Cap) 400 mg PO DAILY TRCAY Stop: 02/24/21 08:59 Last Admin: 01/25/21 11:39 Dose: 400 mg Documented by: [id number] Potassium Chloride 20 meq/ (Lactated Ringer's) 1,010 mls @ 80 mls/hr IV .[id number] [facility] Stop: 01/26/21 04:44 Last Admin: 01/25/21 06:12 Dose: 80 mls/hr Documented by: [id number] Liothyronine Sodium (Liothyronine Sodium 5 Mcg Tab) 5 mcg PO DAILYBB [facility] Stop: 02/24/21 08:59 Last Admin: 01/25/21 11:39 Dose: 5 mcg Documented by: [id number] [place] Citrate ([place] Oral Soln 300 Mg/5ml 500ml) 100 mg PO QAM [facility] Stop: 02/24/21 13:59 Last Admin: 01/25/21 14:10 Dose: 100 mg Documented by: [id number] Tramadol HCl (Tramadol Hcl 50 Mg Tablet) 25 mg PO Q4H PRN PRN Reason: Pain Stop: 02/24/21 08:36 Last Admin: 01/25/21 11:38 Dose: 25 mg Documented by: [id number] Coding Level of Care Code 08230 Inpt Consult Level 4 Diagnoses Vikash F30.9
[2021-01-25] MEDS: NICOTINE 14 MG/24 HR PATCH TD SCH (19:29)
[2021-01-25] MEDS: DOXYCYCLINE HYCLATE 100 MG CAP PO SCH (20:34)
[2021-01-25] MEDS: LITHIUM CARBONATE SLOW REL 300 MG TAB PO SCH (20:34)
[2021-01-25] MEDS: PANTOprazole 40 MG in SYRINGE 0 ML IV SCH (20:34)
[2021-01-25] MEDS: QUEtiapine FUMARATE 300 MG TABLET PO SCH (20:35)
[2021-01-25] MEDS ORDERED: QUEtiapine FUMARATE 200 MG TAB PO SCH (21:00)
[2021-01-26 06:55] LABS: Basophils # (auto) 0.03 K/uL (0-0.2); Basophils % (auto) 0.3 %; Eosinophils # (auto) 0.28 K/uL (0-0.5); Eosinophils % (auto) 3.1 %; Hematocrit (blood only) 38.9 % (42-52); Hemoglobin 12.6 g/dL (14.0-18.0); Immature Granulocytes # (auto) 0.02 K/uL (0.00-0.02); Immature Granulocytes % (auto) 0.2 %; Lymphocytes # (auto) 2.61 K/uL (1.2-3.4); Lymphocytes % (auto) 28.7 %; Mean Corpuscular Hemoglobin 28.6 pg (25-34); Mean Corpuscular Hgb Conc 32.4 g/dL (32-36); Mean Corpuscular Volume 88.4 fL (80-100); Mean Platelet Volume 8.9 fL (7.4-10.4); Monocytes # (auto) 0.83 K/uL (0.11-0.59); Monocytes % (auto) 9.1 %; Neutrophils # (auto) 5.31 K/uL (1.4-6.5); Neutrophils % (auto) 58.6 %; Platelet Count 313 K/uL (130-400); RDW Coefficient of Variation 13.8 % (11.5-14.5); RDW Standard Deviation 44.9 fL (36.4-46.3); White Blood Count 9.08 K/uL (4.8-10.8)
[2021-01-26 07:40] LABS: Albumin Globulin Ratio 1.1 (0.9-2); Albumin Level 3.4 gm/dl (3.4-5.0); BUN Creatinine Ratio 10.6 (10-20); Bilirubin,Total 0.4 mg/dl (0.2-1); Calcium 8.5 mg/dl (8.5-10.1); Creatinine Clr Calc Pharmacy 134.1 ml/min; Est GFR (African American) 124.7 ml/min; Est GFR (Non-African American) 107.6 ml/min; Potassium 3.7 mmol/L (3.5-5.1); Total Protein 6.4 gm/dl (6.4-8.2)
[2021-01-26] MEDS: DOXYCYCLINE HYCLATE 100 MG CAP PO SCH (08:01)
[2021-01-26] MEDS: amLODIPine BESYLATE 5 MG TAB PO SCH (08:01)
[2021-01-26] MEDS: LIOTHYRONINE SODIUM 5 MCG TAB PO SCH (08:01)
[2021-01-26] MEDS: NICOTINE 14 MG/24 HR PATCH TD SCH (08:01)
[2021-01-26] MEDS: PANTOprazole 40 MG in SYRINGE 0 ML IV SCH (08:01)
[2021-01-26] MEDS: GABAPENTIN 400 MG CAP PO SCH (08:02)
[2021-01-26] MEDS: lisinopril 40 MG TAB PO SCH (08:02)
[2021-01-26] MEDS: LITHIUM ORAL SOLN 300 MG/5ML 500ML PO SCH (11:06)
[2021-01-26] MEDS ORDERED: OLANZapine 10 MG/2.1 ML SDV IM PRN (13:32)
[2021-01-26] MEDS ORDERED: LORazepam 1 MG TAB ONE (16:12)
--- NOTE | 2021-01-26 16:17 | Psychiatric Progress Note ---
Date of Service January 26, 2021 Impression / Recommendations Impression 55 yo male with paranoia and disorganized thought process due to shi, unclear that his home situation is safe to return and he is currently unable to engage in even simple mental health assessments or social work planning. (1) Shi: 01/26/21: 302 completed earlier upon medical clearance. He is not agreeing to any standing med increases at this time and too early to check a lithium level as only observed admin total dose yesterday. Zyprexa to 10 mg IM if needed preferred over Haldol but Haldol 10 mg and Ativan 2 mg IM if Zyprexa is ineffective. Currently still willing to take PO Ativan. He has refused daytime dosing of Ativan. Reportedly has a PFA so he should not be calling there. Will engage family in treatment planning soon, patient generally resistant to interventions at this time. 01/25/21: He is very familiar with risks/benefits of his current medications and was notified that hospital will need to give liquid for the lithium 100 mg am dose. He agrees to increase Seroquel to 300 mg po qhs and declines daytime dosing. Reviewed with him that although his TSH is normal I do have concern that Cytomel may be more activating than Syndthroid and thyroid supplements can contribute to shi. He states he'd rather not change at this time but Dr. Hunter notified. Will coordinate care with outpatient psychiatrist. the patient is not suicidal but is reportedly on a 302 warrant (paperwork currently unavailable for review) so typically continues with 1-on-1 or other appropriate monitoring on med floor so no elopement. He is not allowed to sign out of the hospital AMA. When medically cleared will likely continue additional psychiatric treatment on med floor as cannot be transferred to due to COVID status. Note: Ultram can increase lithium levels, again likely subtherapeutic but if using Ultram regularly may need to repeat level and consideration for sulindac. Risk Factors Assessment Do You Have Access To A Gun?: No (except maybe airsoft ) Interval History Identifying Information 55 yo male admit to [facility] for shi, medical treatment for rhabdo [place]. Chief Complaint "you are talking over me and those neighbors and people are the store are messing with me". Review of Systems Meal Information patient is unable to complete due to mental status Telehealth Telehealth Telehealth Options: Telephone only For the duration of the visit, provider was performing the assessment from: The same facility as the patient After establishing a telemedicine visit, patient was: Patient was verified with two unique identifiers, Patient/authorized rep acknowledged consent and understanding and Gave permission to continue telehealth session Total Time Spent (minutes): 35 Subjective Subjective Patient was seen & assessed and interval progress reviewed with liaison and Dr. Hunter multiple times throughout the day. Additional time spent in coordination with Dr. Christianson's office obtaining collateral in anticipation of medical clearance. The patient has been increasingly demanding re: discharge, less cooperative as pressured around leaving, thoughts are tangential in that he will accuse me of interrupting him and then switch his point to complaining about people at stores accusing him of "liking redheads" and other sexual comments. Outpatient psychiatry office has received frequent calls from re: the state of the home, destruction throughout and reports that meds were strewn in the yard. He admits that he threw some doses out. Reviewed need for additional monitoring and time for safety planning to transition him to the community. He actually asked for his lithium to be switched to liquid near the beginning of the meeting. Difficult to redirect and he ended the telehealth session. Later he became acutely agitated and staff had to restrain on Covid unit, now agreeing to take Ativan PO per Dr. Hunter to avoid IM. Physical Exam Psychiatric Orientation: alert and oriented x 3 Speech: + pressured speech Thought Process: + tangential thought process Thought Content: + paranoid Suicidal Thoughts: denies suicidal thoughts Homicidal Thoughts: denies homicidal thoughts Hallucinations: no auditory hallucinations and no visual hallucinations Cognition: language grossly intact; + attention not intact Estimated Intelligence: consistent with education level Insight: + impaired insight Judgement: + impaired judgement Vital Signs (Past 24 Hours) Last Vital Signs Temp 37.8 C H 01/26/21 15:09 Pulse 89 01/26/21 15:09 Resp 18 01/26/21 15:09 BP 126/85 01/26/21 15:09 Pulse Ox 92 01/26/21 15:09 Results & Data ([facility]) Laboratory Results Laboratory Results - last 24 hr 01/26/21 01/26/21 06:24 06:24 WBC 9.08 RBC 4.40 L Hgb 12.6 L Hct 38.9 L MCV 88.4 MCH 28.6 MCHC 32.4 RDW Std Deviation 44.9 RDW Coeff of Dmitry 13.8 Plt Count 313 MPV 8.9 Immature Gran % (Auto) 0.2 Neut % (Auto) 58.6 Lymph % (Auto) 28.7 [place] % (Auto) 9.1 Eos % (Auto) 3.1 Baso % (Auto) 0.3 Neut # (Auto) 5.31 Lymph # (Auto) 2.61 [place] # (Auto) 0.83 H Eos # (Auto) 0.28 Baso # (Auto) 0.03 Immature Gran # (Auto) 0.02 Sodium 137 Potassium 3.7 Chloride 107 Carbon Dioxide 26 Anion Gap 4.0 BUN 7 D Creatinine 0.69 Est Cr Clr Drug Dosing 134.1 Est GFR ( Amer) 124.7 Est GFR (Non-Af Amer) 107.6 BUN/Creatinine Ratio 10.6 Glucose 116 H Calcium 8.5 Total Bilirubin 0.4 AST 44 H ALT 82 H Alkaline Phosphatase 60 Total Creatine Kinase 414 H Total Protein 6.4 Albumin 3.4 Globulin 3.0 Albumin/Globulin Ratio 1.1 Current Inpatient Medications Current Inpatient Medications: Current Inpatient Medications Acetaminophen (Acetaminophen 325 Mg Tab) 325 mg PO Q6H PRN PRN Reason: Mild Pain Stop: 02/24/21 08:36 Last Admin: 01/25/21 11:38 Dose: 325 mg Documented by: Amlodipine Besylate (Amlodipine Besylate 5 Mg Tab) 10 mg PO DAILY [facility] Stop: 02/24/21 08:59 Last Admin: 01/26/21 08:01 Dose: 10 mg Documented by: Doxycycline Hyclate (Doxycycline Hyclate 100 Mg Cap) 100 mg PO BID [facility] Stop: 02/01/21 20:59 Last Admin: 01/26/21 08:01 Dose: 100 mg Documented by: Gabapentin (Gabapentin 400 Mg Cap) 400 mg PO DAILY [facility] Stop: 02/24/21 08:59 Last Admin: 01/26/21 08:02 Dose: 400 mg Documented by: Promethazine HCl 12.5 mg/ (Sodium Chloride) 50.5 mls @ 202 mls/hr IV Q6H PRN PRN Reason: Nausea And Vomiting Stop: 02/24/21 08:36 Pantoprazole Sodium 40 mg/ (Syringe) 10 mls @ 5 mls/min IV BID [facility] Stop: 02/24/21 20:59 Last Admin: 01/26/21 08:01 Dose: 5 mls/min Documented by: Liothyronine Sodium (Liothyronine Sodium 5 Mcg Tab) 5 mcg PO DAILYBB [facility] Stop: 02/24/21 08:59 Last Admin: 01/26/21 08:01 Dose: 5 mcg Documented by: Lisinopril (Lisinopril 40 Mg Tab) 40 mg PO DAILY [facility] Stop: 02/25/21 08:59 Last Admin: 01/26/21 08:02 Dose: 40 mg Documented by: [place] Carbonate ([place] Carbonate Slow Rel 300 Mg Tab) 600 mg PO HS [facility] Stop: 02/24/21 20:59 Last Admin: 01/25/21 20:34 Dose: 600 mg Documented by: [place] Citrate ([place] Oral Soln 300 Mg/5ml 500ml) 100 mg PO QAM [facility] Stop: 02/24/21 13:59 Last Admin: 01/26/21 11:06 Dose: 100 mg Documented by: Miscellaneous (Remove Nicoderm Patch) 1 ea N/A DAILY@[id number] [facility] Stop: 02/25/21 08:58 Last Admin: 01/26/21 08:02 Dose: 1 ea Documented by: Nicotine (Nicotine 14 Mg/24 Hr Patch) 14 mg TD QAM [facility] Stop: 02/24/21 18:29 Last Admin: 01/26/21 08:01 Dose: 14 mg Documented by: Olanzapine (Olanzapine 10 Mg/2.1 Ml Sdv) 10 mg IM Q4H PRN PRN Reason: Anxiety/Agitation Stop: 02/24/21 08:36 Pantoprazole Sodium (Pantoprazole 40 Mg Tab) 40 mg PO DAILY [facility] Stop: 02/24/21 08:59 Quetiapine Fumarate (Quetiapine Fumarate 300 Mg Tablet) 300 mg PO HS [facility] Stop: 02/24/21 20:59 Last Admin: 01/25/21 20:35 Dose: 300 mg Documented by: Tramadol HCl (Tramadol Hcl 50 Mg Tablet) 25 mg PO Q4H PRN PRN Reason: Pain Stop: 02/24/21 08:36 Last Admin: 01/25/21 20:32 Dose: 25 mg Documented by:
--- NOTE | 2021-01-26 16:34 | Hospitalist Progress Note ---
Date of Service January 26, 2021 Assessment & Plan (1) Shi: Plan: Mood disorder Present on admission after police found walking in the wood naked Denies any suicidal thought but he is being on a 302 warrant Psych on board Will not be able to transfer to the mental health unit since pt is COVID 19 positive Continue Magazine and Zyprexa prn Continue 1 to 1 sitter Code purple called because pt was agitated because he cannot leave the hospital Will add Ativan 1mg q4h prn Pt cannot sign AMA B/L LE cellulitis Sepsis ruled out Doppler of LE showed no evidence of deep venous thrombus within the bilateral lower extremities. Continue doxycycline PO BID GI bleed Hgb 12.8 on admission Hgb stable today at 12 Gastro on board No plan for EGD/Colonoscopy for this admission Plan for outpatient EGD/Colonoscopy in 6 weeks Continue conservative management Continue clear liquid diet Continue PO PPI BID Elevated Liver Enzymes Mostly due to COVID 19/acute illness Liver enzymes with AST 116 and ALT 113 Continue monitor Liver enzymes Elevated CPK level Rabdo CPK 2588 on admission, CPK 414 today received IVF Hypothyroidism Continue Cytomel for now Psych recommended to change to Synthroid but pt refused since psych provider was concerned that Cytomel may be more activating than Synthroid and thyroid supplements can contribute to shi TSH normal DVT px on SCD due to GI bleed CODE status FULL Code Disposition Pt cannot sign AMA Patient requesting for his to be updated of plan of care. Ms. Gayatri Diana, contact #[phone]. Admission and Anticipated Discharge Date Admission Date: January 25, 2021 Subjective Pt was seen and examined for follow up of suicidal ideation/manic, COVID 19 and GI bleed Standing in his room with no acute distress with 1 to 1 sitter Pt said that he feels fine He said that he is not having any bloody stool He denies any upper respiratory symptoms He denies any suicidal thought Pt said that he wants to leave in the next hour He said that he hung up the phone on Dr. Mohan because Dr. Mohan told him that he would not be able to leave the hospital Later in the afternoon CODE purple called because pt was agitated and wants to leave AMA Denies any chest pain, palpitation, dizziness and SOB Review of Systems Review of Systems: All systems reviewed & are unremarkable except as noted in Subjective Physical Exam Physical Exam: General- No acute distress Head- atraumatic Eyes- PERRL, EOMI, ENT- oropharynx clear Neck- supple, no JVD Lungs- clear to auscultation Heart- regular rhythm; no murmur Abdomen- normal bowel sounds, soft, nontender Extremities- no calf tenderness Neuro- alert, oriented x 3; PERRL, EOMI; no facial palsy; no dysarthria Skin- warm & dry Results & Data Results & [facility] ([facility]) Vital Signs (Past 12 Hours) Vital Signs Temp Pulse Resp BP Pulse Ox 01/26/21 15:09 37.8 C H 89 18 126/85 92 01/26/21 11:23 37.1 C 90 18 128/78 98 01/26/21 07:12 36.9 C 88 18 143/87 H 96
[2021-01-26] MEDS: LORazepam 1 MG TAB PO PRN (21:05)
[2021-01-27] MEDS: DOXYCYCLINE HYCLATE 100 MG CAP PO SCH ×3 (00:16→21:11)
[2021-01-27] MEDS: LITHIUM CARBONATE SLOW REL 300 MG TAB PO SCH ×2 (00:17→21:11)
[2021-01-27] MEDS: QUEtiapine FUMARATE 300 MG TABLET PO SCH ×2 (00:18→21:12)
[2021-01-27] MEDS: PANTOprazole 40 MG in SYRINGE 0 ML IV SCH ×3 (00:19→21:11)
[2021-01-27] MEDS: LIOTHYRONINE SODIUM 5 MCG TAB PO SCH (06:21)
[2021-01-27] MEDS ORDERED: LORazepam 2 MG/ML VIAL (IM USE) IM STA ×2 (06:31→13:11)
[2021-01-27 06:49] LABS: Hematocrit (blood only) 40.1 % (42-52); Hemoglobin 12.9 g/dL (14.0-18.0); Mean Corpuscular Hemoglobin 29.1 pg (25-34); Mean Corpuscular Hgb Conc 32.2 g/dL (32-36); Mean Corpuscular Volume 90.3 fL (80-100); Mean Platelet Volume 8.8 fL (7.4-10.4); Platelet Count 332 K/uL (130-400); RDW Coefficient of Variation 13.8 % (11.5-14.5); Red Blood Count 4.44 M/uL (4.7-6.1); White Blood Count 7.31 K/uL (4.8-10.8)
[2021-01-27 07:21] LABS: Albumin Level 3.4 gm/dl (3.4-5.0); BUN Creatinine Ratio 9.9 (10-20); Calcium 8.7 mg/dl (8.5-10.1); Creatinine Clr Calc Pharmacy 123.4 ml/min; Est GFR (African American) 120.5 ml/min; Potassium 3.5 mmol/L (3.5-5.1)
[2021-01-27 07:24] LABS: Albumin Globulin Ratio 1.1 (0.9-2); Bilirubin,Total 0.4 mg/dl (0.2-1); Globulin 3.1 gm/dl (2.5-4.0); Total Protein 6.5 gm/dl (6.4-8.2)
[2021-01-27] MEDS: LORazepam 1 MG TAB PO PRN (08:08)
[2021-01-27] MEDS: NICOTINE 14 MG/24 HR PATCH TD SCH (08:09)
[2021-01-27] MEDS: lisinopril 40 MG TAB PO SCH (08:09)
[2021-01-27] MEDS: amLODIPine BESYLATE 5 MG TAB PO SCH (08:10)
[2021-01-27] MEDS: GABAPENTIN 400 MG CAP PO SCH (08:14)
[2021-01-27] MEDS: traMADol HCL 50 MG TABLET PO PRN (09:06)
[2021-01-27] MEDS: LITHIUM ORAL SOLN 300 MG/5ML 500ML PO SCH (09:06)
[2021-01-27] MEDS: ACETAMINOPHEN 325 MG TAB PO PRN (09:07)
[2021-01-27] MEDS ORDERED: HALOPERIDOL LACTATE 5 MG/ML 1 ML VIAL IM STA (13:11)
[2021-01-27] MEDS ORDERED: diphenhydrAMINE 50 MG/ML VIAL IM STA (13:11)
[2021-01-27] MEDS ORDERED: LORazepam 2 MG/4 ML VIAL ONE (13:15)
--- NOTE | 2021-01-27 14:38 | Psychiatric Progress Note ---
Date of Service January 27, 2021 Impression / Recommendations Impression 55 yo male with worsening paranoia and disorganized and threatening behavior in CovID isolation. He is currently unable to engage in even simple mental health assessments or social work planning due to his mental illness. (1) Shi: 01/27/21: 303 completed to not delay emergency care so there is external review re: his rights and also facilitate possible meds over objection given severity of illness. For now, emergency prns for agitation which also treatment shi and hopefully he will remain compliant with PO. 01/26/21: 302 completed earlier upon medical clearance. He is not agreeing to any standing med increases at this time and too early to check a lithium level as only observed admin total dose yesterday. Zyprexa to 10 mg IM if needed preferred over Haldol but Haldol 10 mg and Ativan 2 mg IM if Zyprexa is ineffective. Currently still willing to take PO Ativan. He has refused daytime dosing of Ativan. Reportedly has a PFA so he should not be calling there. Will engage family in treatment planning soon, patient generally resistant to interventions at this time. 01/25/21: He is very familiar with risks/benefits of his current medications and was notified that hospital will need to give liquid for the lithium 100 mg am dose. He agrees to increase Seroquel to 300 mg po qhs and declines daytime dosing. Reviewed with him that although his TSH is normal I do have concern that Cytomel may be more activating than Syndthroid and thyroid supplements can contribute to shi. He states he'd rather not change at this time but Dr. Hunter notified. Will coordinate care with outpatient psychiatrist. the patient is not suicidal but is reportedly on a 302 warrant (paperwork currently unavailable for review) so typically continues with 1-on-1 or other appropriate monitoring on med floor so no elopement. He is not allowed to sign out of the hospital AMA. When medically cleared will likely continue additional psychiatric treatment on med floor as cannot be transferred to due to COVID status. Note: Ultram can increase lithium levels, again likely subtherapeutic but if using Ultram regularly may need to repeat level and consideration for sulindac. Risk Factors Assessment Do You Have Access To A Gun?: No (except maybe airsoft ) Interval History Identifying Information 55 yo male admit to [facility] for shi, medical treatment for rhabdo on 302 warrant by [facility]. Chief Complaint "you turned on me, f you"--irritable, lewd gesture while sitting on commode. Review of Systems Notes patient is unable to complete due to mental status Telehealth Telehealth Options: 2-way audio and video For the duration of the visit, provider was performing the assessment from: The same facility as the patient After establishing a telemedicine visit, patient was: Patient was verified with two unique identifiers (he refused but staff confirmed) Total Time Spent (minutes): 15 Subjective Subjective Patient was seen & assessed and interval progress reviewed with liaison and Dr. Loo. There was a code chacko earlier this am for behavioral acting out, patient threw over a chair and threatened to spit water on staff. He escalated again following my attempt at a telehealth session and IM Zyprexa was administered. Patient had brief period of mild sedation but soon after restless and pacing about room and then security called as patient was attempting to take the bar out of the closet. Security then escorted liaison to room to deliver rights and it was recommended an additional 10 mg Haldol IM be given with Ativan and Bendryl to treat shi and acute agitation for safety of patient and staff. He accepted this willingly per liaison. During appointment he was very uncooperative, purposely sat on the commode and would not engage, mainly paranoid about my role in his care. Unable to verbalize why he was resistant to medications last pm. Unable to engage in any meaningful discussion around discharge planning. Patient ended the call following mention of decision making around a 303 commitment. Just prior to the call I had attempted to contact his for collateral as she remains involved with communications with outpatient psychiatrist and she is working to repair the door/windows at their home. She stated that the formal PFA hearing was on the day of his admission so postponed, only a temporary restraining order was in place. Reviewed that if he contacted her or was threatening toward her/neighbors/sister we needed to know as we are gathering information to determine ability to extend commitment. She started crying and was very upset that there would be a possibility of discharge when he is "so sick", She said he was inappropriate on phone with sister but the "threats" were to sneak out and clean up the house before returned and was difficult to redirect. Reviewed the challenges of care at this time given his COVID status. Physical Exam Psychiatric Orientation: alert and oriented x 3 disheveled very poor agitated Speech: + pressured speech labile, angry Thought Process: + tangential thought process Thought Content: + paranoid he refuses to engage in interview to assess threatening toward examiner ("you come in here and I'll show you what" and "people are going to get hurt") Hallucinations: no auditory hallucinations and no visual hallucinations Cognition: language grossly intact; + attention not intact Estimated Intelligence: consistent with education level Insight: + impaired insight and + severely impaired insight Vital Signs (Past 24 Hours) Last Vital Signs Temp 36.9 C 01/27/21 06:18 Pulse 104 H 01/27/21 06:18 Resp 22 01/27/21 06:18 BP 136/105 H 01/27/21 06:18 Pulse Ox 94 01/27/21 06:18 Results & Data ([facility]) Laboratory Results Laboratory Results - last 24 hr 01/27/21 01/27/21 06:26 06:26 WBC 7.31 RBC 4.44 L Hgb 12.9 L Hct 40.1 L MCV 90.3 MCH 29.1 MCHC 32.2 RDW Std Deviation 46.0 RDW Coeff of Dmitry 13.8 Plt Count 332 MPV 8.8 Sodium 139 Potassium 3.5 Chloride 109 H Carbon Dioxide 26 Anion Gap 4.0 BUN 7 Creatinine 0.75 Est Cr Clr Drug Dosing 123.4 Est GFR ( Amer) 120.5 Est GFR (Non-Af Amer) 104.0 BUN/Creatinine Ratio 9.9 L Glucose 118 H Calcium 8.7 Total Bilirubin 0.4 AST 26 ALT 68 Alkaline Phosphatase 61 Total Protein 6.5 Albumin 3.4 Globulin 3.1 Albumin/Globulin Ratio 1.1 Current Inpatient Medications Current Inpatient Medications: Current Inpatient Medications Acetaminophen (Acetaminophen 325 Mg Tab) 325 mg PO Q6H PRN PRN Reason: Mild Pain Stop: 02/24/21 08:36 Last Admin: 01/27/21 09:07 Dose: 325 mg Documented by: Amlodipine Besylate (Amlodipine Besylate 5 Mg Tab) 10 mg PO DAILY [facility] Stop: 02/24/21 08:59 Last Admin: 01/27/21 08:10 Dose: 10 mg Documented by: Doxycycline Hyclate (Doxycycline Hyclate 100 Mg Cap) 100 mg PO BID [facility] Stop: 02/01/21 20:59 Last Admin: 01/27/21 08:10 Dose: 100 mg Documented by: Gabapentin (Gabapentin 400 Mg Cap) 400 mg PO DAILY [facility] Stop: 02/24/21 08:59 Last Admin: 01/27/21 08:14 Dose: 400 mg Documented by: Promethazine HCl 12.5 mg/ (Sodium Chloride) 50.5 mls @ 202 mls/hr IV Q6H PRN PRN Reason: Nausea And Vomiting Stop: 02/24/21 08:36 Pantoprazole Sodium 40 mg/ (Syringe) 10 mls @ 5 mls/min IV BID [facility] Stop: 02/24/21 20:59 Last Admin: 01/27/21 08:08 Dose: 5 mls/min Documented by: Lisinopril (Lisinopril 40 Mg Tab) 40 mg PO DAILY [facility] Stop: 02/25/21 08:59 Last Admin: 01/27/21 08:09 Dose: 40 mg Documented by: [place] Carbonate ([place] Carbonate Slow Rel 300 Mg Tab) 600 mg PO HS [facility] Stop: 02/24/21 20:59 Last Admin: 01/27/21 00:17 Dose: 600 mg Documented by: [place] Citrate ([place] Oral Soln 300 Mg/5ml 500ml) 150 mg PO QAM [facility] Stop: 02/26/21 08:59 Last Admin: 01/27/21 09:06 Dose: 150 mg Documented by: Lorazepam (Lorazepam 1 Mg Tab) 1 mg PO Q4H PRN PRN Reason: Anxiety/Agitation Stop: 02/25/21 16:05 Last Admin: 01/27/21 08:08 Dose: 1 mg Documented by: Miscellaneous (Remove Nicoderm Patch) 1 ea N/A DAILY@0859 [facility] Stop: 02/25/21 08:58 Last Admin: 01/27/21 08:11 Dose: 1 ea Documented by: Nicotine (Nicotine 14 Mg/24 Hr Patch) 14 mg TD QAM [facility] Stop: 02/24/21 18:29 Last Admin: 01/27/21 08:09 Dose: 14 mg Documented by: Olanzapine (Olanzapine 10 Mg/2.1 Ml Sdv) 10 mg IM Q4H PRN PRN Reason: Anxiety/Agitation Stop: 02/24/21 08:36 Last Admin: 01/27/21 10:30 Dose: 10 mg Documented by: Pantoprazole Sodium (Pantoprazole 40 Mg Tab) 40 mg PO DAILY [facility] Stop: 02/24/21 08:59 Quetiapine Fumarate (Quetiapine Fumarate 300 Mg Tablet) 300 mg PO HS [facility] Stop: 02/24/21 20:59 Last Admin: 01/27/21 00:18 Dose: 300 mg Documented by: Tramadol HCl (Tramadol Hcl 50 Mg Tablet) 25 mg PO Q4H PRN PRN Reason: Pain Stop: 02/24/21 08:36 Last Admin: 01/27/21 09:06 Dose: 25 mg Documented by:
[2021-01-27] MEDS ORDERED: LORazepam 1 MG/2 ML VIAL IV PRN (15:01)
[2021-01-27] MEDS ORDERED: BENZTROPINE MESYLATE 1 MG/ML 2 ML AMP IM PRN (15:01)
--- NOTE | 2021-01-27 17:24 | Hospitalist Progress Note ---
Date of Service January 27, 2021 Assessment & Plan (1) Shi: Plan: Mood disorder Present on admission after police found walking [place] naked Denies any suicidal thought but he is being on a 302 warrant Psych on board -appreciate input and recommendation Will not be able to transfer to the mental health unit since pt is COVID 19 positive Continue [place] and Zyprexa prn Has been having recurrent code chacko calls and requiring IM Zyprexa to control symptoms Will add Ativan 1mg q4h prn Pt cannot sign AMA Discussed with Dr. Mohan in detail and will administer antipsychotic medications as per her recommendation Remains medically stable to be discharged but has Covid isolation Will limit checking of vitals and labs B/L LE cellulitis Sepsis ruled out Doppler of LE showed no evidence of deep venous thrombus within the bilateral lower extremities. Continue doxycycline PO BID GI bleed Hgb 12.8 on admission Hgb stable today at 12 Gastro on board No plan for EGD/Colonoscopy for this admission Plan for outpatient EGD/Colonoscopy in 6 weeks Continue conservative management Continue clear liquid diet Continue PO PPI BID Elevated Liver Enzymes Mostly due to COVID 19/acute illness Liver enzymes with AST 116 and ALT 113 Continue monitor Liver enzymes Elevated CPK level Rabdo CPK 2588 on admission, CPK 414 today received IVF Hypothyroidism Continue Cytomel for now Psych recommended to change to Synthroid but pt refused since psych provider was concerned that Cytomel may be more activating than Synthroid and thyroid supplements can contribute to shi TSH normal DVT px on SCD due to GI bleed CODE status FULL Code Disposition Pt cannot sign AMA Patient requesting for his to be updated of plan of care. Ms. Gayatri Diana, contact #[phone]. Admission and Anticipated Discharge Date Admission Date: January 25, 2021 Subjective 01/27/21 The patient was seen and examined in telemetry unit and in the Covid room He has been going through worsening paranoia and disorganized and threatening behavior due to his shi in the Covid unit He cannot be discharged even though medically stable Denies any symptoms related to Covid 19 Review of Systems Review of Systems: Other (Will not cooperate) Physical Exam Physical Exam: Standing in the room and threatening to leave Constitutional: WD/WN, vitals as above Eyes: PERRL, conjunctivae normal, anicteric sclerae ENMT: external ear and nose normal, oropharynx normal Neck: trachea midline, no thyromegaly Respiratory: normal respiratory effort, lungs clear to auscultation Cardiovascular: Rate/Rhythm: regular rate and regular rhythm; not tachycardic Psychiatric: Shi with worsening paranoia and disorganized behavior Results & Data Results & Data ([facility]) Vital Signs (Past 12 Hours) Vital Signs Temp Pulse Resp BP Pulse Ox 01/27/21 08:00 36.6 C 88 18 148/107 H 95 01/27/21 06:18 36.9 C 104 H 22 136/105 H 94 Laboratory Results Short CBC 01/27/21 Range/Units 06:26 WBC 7.31 (4.8-10.8) K/uL Hgb 12.9 L (14.0-18.0) g/dL Hct 40.1 L (42-52) % Plt Count 332 (130-400) K/uL BMP 01/27/21 06:26 Sodium 139 Potassium 3.5 Chloride 109 H Carbon Dioxide 26 BUN 7 Creatinine 0.75 Glucose 118 H Calcium 8.7 Liver Function 01/27/21 Range/Units 06:26 Total Bilirubin 0.4 (0.2-1) mg/dl AST 26 (15-37) U/L ALT 68 (12-78) U/L Alkaline Phosphatase 61 (45-117) U/L Albumin 3.4 (3.4-5.0) gm/dl Medications Administered Current Inpatient Medications Acetaminophen (Acetaminophen 325 Mg Tab) 325 mg PO Q6H PRN PRN Reason: Mild Pain Stop: 02/24/21 08:36 Last Admin: 01/27/21 09:07 Dose: 325 mg Documented by: Amlodipine Besylate (Amlodipine Besylate 5 Mg Tab) 10 mg PO DAILY [facility] Stop: 02/24/21 08:59 Last Admin: 01/27/21 08:10 Dose: 10 mg Documented by: Benztropine Mesylate (Benztropine Mesylate 1 Mg/Ml 2 Ml Amp) 1 mg IM Q6 PRN PRN Reason: dystonic reaction/muscle spasm Stop: 02/26/21 15:00 Doxycycline Hyclate (Doxycycline Hyclate 100 Mg Cap) 100 mg PO BID [facility] Stop: 02/01/21 20:59 Last Admin: 01/27/21 08:10 Dose: 100 mg Documented by: Gabapentin (Gabapentin 400 Mg Cap) 400 mg PO DAILY [facility] Stop: 02/24/21 08:59 Last Admin: 01/27/21 08:14 Dose: 400 mg Documented by: Haloperidol Lactate (Haloperidol Lactate 5 Mg/Ml 1 Ml Vial) 10 mg IM Q4 PRN PRN Reason: Agitation Stop: 02/26/21 15:00 Promethazine HCl 12.5 mg/ (Sodium Chloride) 50.5 mls @ 202 mls/hr IV Q6H PRN PRN Reason: Nausea And Vomiting Stop: 02/24/21 08:36 Pantoprazole Sodium 40 mg/ (Syringe) 10 mls @ 5 mls/min IV BID [facility] Stop: 02/24/21 20:59 Last Admin: 01/27/21 08:08 Dose: 5 mls/min Documented by: Lorazepam (Ativan) 1 mg in 2 mls @ 2 mls/min IV Q4H PRN; Protocol PRN Reason: Anxiety/Agitation Stop: 02/26/21 15:00 Lisinopril (Lisinopril 40 Mg Tab) 40 mg PO DAILY [facility] Stop: 02/25/21 08:59 Last Admin: 01/27/21 08:09 Dose: 40 mg Documented by: [place] Carbonate ([place] Carbonate Slow Rel 300 Mg Tab) 600 mg PO HS [facility] Stop: 02/24/21 20:59 Last Admin: 01/27/21 00:17 Dose: 600 mg Documented by: [place] Citrate ([place] Oral Soln 300 Mg/5ml 500ml) 150 mg PO QAM [facility] Stop: 02/26/21 08:59 Last Admin: 01/27/21 09:06 Dose: 150 mg Documented by: Lorazepam (Lorazepam 1 Mg Tab) 1 mg PO Q4H PRN PRN Reason: Anxiety/Agitation Stop: 02/25/21 16:05 Last Admin: 01/27/21 08:08 Dose: 1 mg Documented by: Lorazepam (Lorazepam 2 Mg/Ml Vial (Im Use)) 2 mg IM Q4 PRN; Protocol PRN Reason: Agitation Stop: 02/26/21 15:00 Miscellaneous (Remove Nicoderm Patch) 1 ea N/A DAILY@0859 [facility] Stop: 02/25/21 08:58 Last Admin: 01/27/21 08:11 Dose: 1 ea Documented by: Nicotine (Nicotine 14 Mg/24 Hr Patch) 14 mg TD QAM [facility] Stop: 02/24/21 18:29 Last Admin: 01/27/21 08:09 Dose: 14 mg Documented by: Pantoprazole Sodium (Pantoprazole 40 Mg Tab) 40 mg PO DAILY [facility] Stop: 02/24/21 08:59 Quetiapine Fumarate (Quetiapine Fumarate 300 Mg Tablet) 300 mg PO HS [facility] Stop: 02/24/21 20:59 Last Admin: 01/27/21 00:18 Dose: 300 mg Documented by: Tramadol HCl (Tramadol Hcl 50 Mg Tablet) 25 mg PO Q4H PRN PRN Reason: Pain Stop: 02/24/21 08:36 Last Admin: 01/27/21 09:06 Dose: 25 mg Documented by:
[2021-01-27] MEDS: LORazepam 2 MG/ML VIAL (IM USE) IM PRN (18:53)
[2021-01-27] MEDS: HALOPERIDOL LACTATE 5 MG/ML 1 ML VIAL IM PRN (18:53)
--- NOTE | 2021-01-28 07:52 | Psychiatric Progress Note ---
Date of Service January 28, 2021 Impression / Recommendations Impression 55 yo male with worsening paranoia and disorganized and threatening behavior in CovID isolation. He is currently unable to engage in even simple mental health assessments or social work planning due to his mental illness. 01/28/21--remains uncooperative with care, agitated and threatening toward staff intermittently due to shi. (1) Shi: 01/28/21: 303 granted. Increase Seroquel to 400 mg this hs. If the patient refuses Seroquel as ordered, it is medically necessary that he receive medication over objection (Haldol 10 mg IM, will coadmin with Ativan 2 mg IM if acutely agitated). No dystonia appreciated per ICU staff. His behavior remains labile and unpredictable on the COVID unit and he has been repeatedly threatening toward staff and lacks insight into his condition. There is clear risk of and/or serious harm to self or others within the next 30 days without this intervention. Recommendations reviewed with Dr. Loo and he is in agreement with medication over objection. 01/27/21: 303 completed to not delay emergency care so there is external review re: his rights and also facilitate possible meds over objection given severity of illness. For now, emergency prns for agitation which also treatment shi and hopefully he will remain compliant with PO. 01/26/21: 302 completed earlier upon medical clearance. He is not agreeing to any standing med increases at this time and too early to check a lithium level as only observed admin total dose yesterday. Zyprexa to 10 mg IM if needed preferred over Haldol but Haldol 10 mg and Ativan 2 mg IM if Zyprexa is ineffective. Currently still willing to take PO Ativan. He has refused daytime dosing of Ativan. Reportedly has a PFA so he should not be calling there. Will engage family in treatment planning soon, patient generally resistant to interventions at this time. 01/25/21: He is very familiar with risks/benefits of his current medications and was notified that hospital will need to give liquid for the lithium 100 mg am dose. He agrees to increase Seroquel to 300 mg po qhs and declines daytime dosing. Reviewed with him that although his TSH is normal I do have concern that Cytomel may be more activating than Syndthroid and thyroid supplements can contribute to shi. He states he'd rather not change at this time but Dr. Hunter notified. Will coordinate care with outpatient psychiatrist. the patient is not suicidal but is reportedly on a 302 warrant (paperwork currently unavailable for review) so typically continues with 1-on-1 or other appropriate monitoring on med floor so no elopement. He is not allowed to sign out of the hospital AMA. When medically cleared will likely continue additional psychiatric treatment on med floor as cannot be transferred to due to COVID status. Note: Ultram can increase lithium levels, again likely subtherapeutic but if using Ultram regularly may need to repeat level and consideration for sulindac. Risk Factors Assessment Do You Have Access To A Gun?: No (except maybe airsoft ) Interval History Identifying Information 55 yo male admit to [facility] for shi, medical treatment [place]hab[place]. Chief Complaint "I'm hanging up on you, F*ck". Telehealth Telehealth Options: Telephone only For the duration of the visit, provider was performing the assessment from: The same facility as the patient After establishing a telemedicine visit, patient was: Patient was verified with two unique identifiers Subjective Subjective Patient was seen & assessed and interval progress reviewed with liaison and floor nurse. Patient remains irritable, uncooperative, unable to engage in treatment or safety planning. He did accept his scheduled doses of medication last night. A marissa chacko was called this am when his hearing was discussed. He refused to participate and was loud/angry about the time. He required IM Haldol and Ativan due to his impulsive and aggressive nature with staff. Testimony given by phone by myself for his 303 hearing. low [employer] air defense officer granted the petition. Attempted to engage the patient on the phone, he became agitated and yelling about leaving in less than 2 minutes of trying to discuss his shi. He threw the phone again. He mocked any attempts at discussion and continues to deny baseline. The patient's demeanor is clearly not his baseline. Physical Exam Psychiatric Orientation: alert, oriented to person and oriented to place Speech: + pressured speech Thought Process: + tangential thought process Thought Content: + paranoid Homicidal Thoughts: denies homicidal thoughts (will not answer) Hallucinations: no auditory hallucinations and no visual hallucinations Cognition: language grossly intact; + attention not intact Estimated Intelligence: consistent with education level Insight: + severely impaired insight Judgement: + severely impaired judgement Vital Signs (Past 24 Hours) Last Vital Signs Temp 37.2 C 01/28/21 07:42 Pulse 93 H 01/28/21 07:42 Resp 16 01/28/21 07:42 BP 140/88 01/28/21 07:42 Pulse Ox 96 01/28/21 07:42 Results & Data ([facility]) Current Inpatient Medications Current Inpatient Medications: Current Inpatient Medications Acetaminophen (Acetaminophen 325 Mg Tab) 325 mg PO Q6H PRN PRN Reason: Mild Pain Stop: 02/24/21 08:36 Last Admin: 01/27/21 09:07 Dose: 325 mg Documented by: Amlodipine Besylate (Amlodipine Besylate 5 Mg Tab) 10 mg PO DAILY [facility] Stop: 02/24/21 08:59 Last Admin: 01/27/21 08:10 Dose: 10 mg Documented by: Benztropine Mesylate (Benztropine Mesylate 1 Mg/Ml 2 Ml Amp) 1 mg IM Q6 PRN PRN Reason: dystonic reaction/muscle spasm Stop: 02/26/21 15:00 Doxycycline Hyclate (Doxycycline Hyclate 100 Mg Cap) 100 mg PO BID [facility] Stop: 02/01/21 20:59 Last Admin: 01/27/21 21:11 Dose: 100 mg Documented by: Gabapentin (Gabapentin 400 Mg Cap) 400 mg PO DAILY [facility] Stop: 02/24/21 08:59 Last Admin: 01/27/21 08:14 Dose: 400 mg Documented by: Haloperidol (Haloperidol 5 Mg Tab) 5 mg PO Q4 PRN PRN Reason: Anxiety/Agitation Stop: 02/27/21 05:23 Haloperidol Lactate (Haloperidol Lactate 5 Mg/Ml 1 Ml Vial) 10 mg IM Q4 PRN PRN Reason: Agitation Stop: 02/26/21 15:00 Last Admin: 01/27/21 18:53 Dose: 10 mg Documented by: Promethazine HCl 12.5 mg/ (Sodium Chloride) 50.5 mls @ 202 mls/hr IV Q6H PRN PRN Reason: Nausea And Vomiting Stop: 02/24/21 08:36 Pantoprazole Sodium 40 mg/ (Syringe) 10 mls @ 5 mls/min IV BID [facility] Stop: 02/24/21 20:59 Last Admin: 01/27/21 21:11 Dose: 5 mls/min Documented by: Lorazepam (Ativan) 1 mg in 2 mls @ 2 mls/min IV Q4H PRN; Protocol PRN Reason: Anxiety/Agitation Stop: 02/26/21 15:00 Lisinopril (Lisinopril 40 Mg Tab) 40 mg PO DAILY [facility] Stop: 02/25/21 08:59 Last Admin: 01/27/21 08:09 Dose: 40 mg Documented by: [place] Carbonate ([place] Carbonate Slow Rel 300 Mg Tab) 600 mg PO HS [facility] Stop: 02/24/21 20:59 Last Admin: 01/27/21 21:11 Dose: 600 mg Documented by: [place] Citrate ([place] Oral Soln 300 Mg/5ml 500ml) 150 mg PO QAM [facility] Stop: 02/26/21 08:59 Last Admin: 01/27/21 09:06 Dose: 150 mg Documented by: Lorazepam (Lorazepam 1 Mg Tab) 1 mg PO Q4H PRN PRN Reason: Anxiety/Agitation Stop: 02/25/21 16:05 Last Admin: 01/27/21 08:08 Dose: 1 mg Documented by: Lorazepam (Lorazepam 2 Mg/Ml Vial (Im Use)) 2 mg IM Q4 PRN; Protocol PRN Reason: Agitation Stop: 02/26/21 15:00 Last Admin: 01/27/21 18:53 Dose: 2 mg Documented by: Miscellaneous (Remove Nicoderm Patch) 1 ea N/A DAILY@0859 [facility] Stop: 02/25/21 08:58 Last Admin: 01/27/21 08:11 Dose: 1 ea Documented by: Nicotine (Nicotine 14 Mg/24 Hr Patch) 14 mg TD QAM [facility] Stop: 02/24/21 18:29 Last Admin: 01/27/21 08:09 Dose: 14 mg Documented by: Pantoprazole Sodium (Pantoprazole 40 Mg Tab) 40 mg PO DAILY [facility] Stop: 02/24/21 08:59 Quetiapine Fumarate (Quetiapine Fumarate 300 Mg Tablet) 300 mg PO HS [facility] Stop: 02/24/21 20:59 Last Admin: 01/27/21 21:12 Dose: 300 mg Documented by: Tramadol HCl (Tramadol Hcl 50 Mg Tablet) 25 mg PO Q4H PRN PRN Reason: Pain Stop: 02/24/21 08:36 Last Admin: 01/27/21 09:06 Dose: 25 mg Documented by:
[2021-01-28] MEDS: HALOPERIDOL LACTATE 5 MG/ML 1 ML VIAL IM PRN ×2 (09:29→15:27)
[2021-01-28] MEDS: LORazepam 2 MG/ML VIAL (IM USE) IM PRN ×2 (09:29→15:27)
[2021-01-28] MEDS: LITHIUM ORAL SOLN 300 MG/5ML 500ML PO SCH ×2 (09:41→15:26)
[2021-01-28] MEDS: PANTOprazole 40 MG in SYRINGE 0 ML IV SCH ×3 (09:41→21:33)
[2021-01-28] MEDS: lisinopril 40 MG TAB PO SCH ×2 (09:41→15:26)
[2021-01-28] MEDS: amLODIPine BESYLATE 5 MG TAB PO SCH ×2 (09:42→15:25)
[2021-01-28] MEDS: GABAPENTIN 400 MG CAP PO SCH ×2 (09:42→15:26)
[2021-01-28] MEDS: DOXYCYCLINE HYCLATE 100 MG CAP PO SCH ×3 (09:42→21:32)
[2021-01-28] MEDS: NICOTINE 14 MG/24 HR PATCH TD SCH (09:45)
[2021-01-28 12:25] LABS: Codeine Urine >10000 ng/mL (<50); Hydrocodone Urine 166 ng/mL (<50); Hydromor Urine NEGATIVE ng/mL (<50); Marijuana Quant, GCMS Urine 797 ng/mL (<5); Morphine Urine 4480 ng/mL (<50); Norhydrocodone Conf Ur 66 ng/mL (<50); Noroxycodone Urine NEGATIVE ng/mL (<50); Oxycodone Urine NEGATIVE ng/mL (<50); Oxymorph Urine NEGATIVE ng/mL (<50)
--- NOTE | 2021-01-28 13:28 | Hospitalist Progress Note ---
Date of Service January 28, 2021 Assessment & Plan (1) Vikash: Plan: Mood disorder Present on admission after police found walking in the wood naked Denies any suicidal thought but he is being on a 302 warrant Psych on board -appreciate input and recommendation Will not be able to transfer to the mental health unit since pt is COVID 19 positive Continue [place] and Zyprexa prn Has been having recurrent code chacko calls and requiring IM Zyprexa to control symptoms Will add Ativan 1mg q4h prn Pt cannot sign AMA Discussed with Dr. Mohan in detail and will administer antipsychotic medications as per her recommendation Remains medically stable to be discharged but has Covid isolation Will limit checking of vitals and labs Discussed with Dr. Mohan in detail and agree with her recommendation to treat his psychiatric condition as below- "Antipsychotic medication is medically necessary to treat his bipolar disorder and without it there is serious risk of or harm to self or others within 30 days." He remains medically stable B/L LE cellulitis Sepsis ruled out Doppler of LE showed no evidence of deep venous thrombus within the bilateral lower extremities. Continue doxycycline PO BID GI bleed Hgb 12.8 on admission Hgb stable today at 12 Gastro on board No plan for EGD/Colonoscopy for this admission Plan for outpatient EGD/Colonoscopy in 6 weeks Continue conservative management Continue clear liquid diet Continue PO PPI BID Elevated Liver Enzymes Mostly due to COVID 19/acute illness Liver enzymes with AST 116 and ALT 113 Continue monitor Liver enzymes if the patient is agreeable Elevated CPK level Rabdo CPK 2588 on admission, CPK 414 today received IVF Hypothyroidism Continue Cytomel for now Psych recommended to change to Synthroid but pt refused since psych provider was concerned that Cytomel may be more activating than Synthroid and thyroid supplements can contribute to vikash TSH normal DVT px on SCD due to GI bleed CODE status FULL Code Disposition Pt cannot sign AMA Patient requesting for his to be updated of plan of care. Ms. Gayatri Hartmantimovlad, contact #[phone]. Admission and Anticipated Discharge Date Admission Date: January 25, 2021 Subjective 01/27/21 The patient was seen and examined in telemetry unit and in the Covid room He has been going through worsening paranoia and disorganized and threatening behavior due to his vikash in the Covid unit He cannot be discharged even though medically stable Denies any symptoms related to Covid 19 01/28/2021 The patient remains stable and is been sleeping this morning No apparent distress noted Review of Systems Review of Systems: Other (Sleeping at this moment) Physical Exam Physical Exam: Standing in the room and threatening to leave Constitutional: WD/WN, vitals as above Eyes: PERRL, conjunctivae normal, anicteric sclerae ENMT: external ear and nose normal, oropharynx normal Neck: trachea midline, no thyromegaly Respiratory: normal respiratory effort, lungs clear to auscultation Cardiovascular: Rate/Rhythm: regular rate and regular rhythm; not tachycardic Results & Data Results & Data ([facility]) Vital Signs (Past 12 Hours) Vital Signs Temp Pulse Pulse Resp BP Pulse Ox 01/28/21 11:37 36.5 C 76 18 150/88 H 95 01/28/21 07:42 37.2 C 93 H 16 140/88 96 01/28/21 03:38 37 C 77 15 144/80 H 94
--- NOTE | 2021-01-28 16:38 | Communication Note ---
Date of Service: January 28, 2021 Patient's reached out for an update on his care. Reviewed that the patient has not signed releases, so there are limits to sharing information under HIPAA. He had initially given me verbal permission to contact his for collateral and we had reached out yesterday to collect information to provide emergency care and with regards to medical decision making around involuntary commitment. We also needed to clarify status of PFA (currently a temporary restraining order). She apologized for yelling on the phone yesterday, but was "scared you'd let him go and this has been going on for weeks", referring to his agitation. She again confirmed there are no legal charges related to the neighbors. Due to her concern for safety (she reports receiving message he was discharged),that she is caring for his dog, and secured the home with assistance of friends--confirmed that he remains hospitalized on a 303 commitment. Reviewed in general that the treatment that a COVID+ patient receives on the medical floor approximates care on the unit. An acutely manic or agitated patient on our unit would not attend therapy groups right away (and they would also have to agree to attend). COVID+ patients on the medical floor on involuntary commitments receive daily medication assessment by a psychiatrist and therapeutic staff reach out to engage in individualized programming as appropriate. Reviewed that there is not a set protocol for repeat COVID testing and that ID policies vary institution to institution re: length of isolation. Even if a p atient agrees to repeat COVID testing, there is no guarantee of bed placement, ability to transport, or that a patient will continue to meet involuntary commitment criteria for the duration of quarantine. Reviewed that there is an even higher level of criteria for medications over objection, but that if a patient met criteria that would also happen on the medical floor. She was thankful for the information and all questions were answered to her satisfaction at the time of the call.
[2021-01-28] MEDS: LITHIUM CARBONATE SLOW REL 300 MG TAB PO SCH (21:32)
[2021-01-28] MEDS: QUEtiapine FUMARATE 200 MG TAB PO SCH (21:33)
--- NOTE | 2021-01-29 08:11 | Psychiatric Progress Note ---
Date of Service January 29, 2021 Impression / Recommendations Impression 55 yo male with worsening paranoia and disorganized and threatening behavior in CovID isolation. He is currently unable to engage in even simple mental health assessments or social work planning due to his mental illness. 01/29/21--remains threatening at times--mainly to destroy room if not discharged (1) Shi: 01/29/21: minimal improvement overnight, remains on 303. Dr. Loo updated as patient may cooperate with repeat COVID swab, if negative a repeat negative swab, timing per ID,could assist with placement. 01/28/21: 303 granted. Increase Seroquel to 400 mg this hs. If the patient refuses Seroquel as ordered, it is medically necessary that he receive medication over objection (Haldol 10 mg IM, will coadmin with Ativan 2 mg IM if acutely agitated). No dystonia appreciated per ICU staff. His behavior remains labile and unpredictable on the COVID unit and he has been repeatedly threatening toward staff and lacks insight into his condition. There is clear risk of and/or serious harm to self or others within the next 30 days without this intervention. Recommendations reviewed with Dr. Loo and he is in agreement with medication over objection. 01/27/21: 303 completed to not delay emergency care so there is external review re: his rights and also facilitate possible meds over objection given severity of illness. For now, emergency prns for agitation which also treatment shi and hopefully he will remain compliant with PO. 01/26/21: 302 completed earlier upon medical clearance. He is not agreeing to any standing med increases at this time and too early to check a lithium level as only observed admin total dose yesterday. Zyprexa to 10 mg IM if needed preferred over Haldol but Haldol 10 mg and Ativan 2 mg IM if Zyprexa is ineffective. Currently still willing to take PO Ativan. He has refused daytime dosing of Ativan. Reportedly has a PFA so he should not be calling there. Will engage family in treatment planning soon, patient generally resistant to interventions at this time. 01/25/21: He is very familiar with risks/benefits of his current medications and was notified that hospital will need to give liquid for the lithium 100 mg am dose. He agrees to increase Seroquel to 300 mg po qhs and declines daytime dosing. Reviewed with him that although his TSH is normal I do have concern that Cytomel may be more activating than Syndthroid and thyroid supplements can contribute to shi. He states he'd rather not change at this time but Dr. Hunter notified. Will coordinate care with outpatient psychiatrist. the patient is not suicidal but is reportedly on a 302 warrant (paperwork currently unavailable for review) so typically continues with 1-on-1 or other appropriate monitoring on [facility] floor so no elopement. He is not allowed to sign out of the hospital AMA. When medically cleared will likely continue additional psychiatric treatment on [facility] floor as cannot be transferred to due to COVID status. Note: Ultram can increase lithium levels, again likely subtherapeutic but if using Ultram regularly may need to repeat level and consideration for sulindac. Risk Factors Assessment Do You Have Access To A Gun?: No (except maybe airsoft ) Interval History Identifying Information 55 yo male admit to [facility] for shi, medical treatment for rhabdo on 302 warrant by [facility]. Chief Complaint ongoing irritability Subjective Subjective Patient was seen & assessed and interval progress reviewed with floor nurse and liaison. Remains inappropriate for therapeutic programming. Received 2 separate doses of IM medication yesterday, both on interactions with our service. Accepted higher dose of Seroquel last hs. Mid morning starting to throw items about his room again, furniture removed, did accept PO Haldol. Physical Exam Psychiatric patient is refusing to engage in telehealth assessment. Vital Signs (Past 24 Hours) Last Vital Signs Temp 37 C 01/29/21 07:00 Pulse 75 01/29/21 07:00 Resp 16 01/29/21 07:00 BP 157/93 H 01/29/21 07:00 Pulse Ox 98 01/29/21 07:00 Results & Data ([facility]) Laboratory Results Laboratory Results - last 24 hr 01/24/21 23:26 U Codeine Confrm GC/MS >06641 H Ur Morphine (GC/MS) 4480 H Ur Hydrocodone (GC/MS) 166 H Ur Norhydrocodone 66 H Ur Noroxycodone NEGATIVE Urine Oxycodone (GC/MS) NEGATIVE U Oxymorphone GC/MS NEGATIVE Ur Hydromorphone (GC/MS) NEGATIVE U Marijuana THC Carboxy 797 H Drug Screen Comment SEE NOTE Current Inpatient Medications Current Inpatient Medications: Current Inpatient Medications Acetaminophen (Acetaminophen 325 Mg Tab) 325 mg PO Q6H PRN PRN Reason: Mild Pain Stop: 02/24/21 08:36 Last Admin: 01/27/21 09:07 Dose: 325 mg Documented by: Amlodipine Besylate (Amlodipine Besylate 5 Mg Tab) 10 mg PO DAILY [facility] Stop: 02/24/21 08:59 Last Admin: 01/28/21 15:25 Dose: Not Given Documented by: Benztropine Mesylate (Benztropine Mesylate 1 Mg/Ml 2 Ml Amp) 1 mg IM Q6 PRN PRN Reason: dystonic reaction/muscle spasm Stop: 02/26/21 15:00 Doxycycline Hyclate (Doxycycline Hyclate 100 Mg Cap) 100 mg PO BID [facility] Stop: 02/01/21 20:59 Last Admin: 01/28/21 21:32 Dose: 100 mg Documented by: Gabapentin (Gabapentin 400 Mg Cap) 400 mg PO DAILY [facility] Stop: 02/24/21 08:59 Last Admin: 01/28/21 15:26 Dose: Not Given Documented by: Haloperidol (Haloperidol 5 Mg Tab) 5 mg PO Q4 PRN PRN Reason: Anxiety/Agitation Stop: 02/27/21 05:23 Haloperidol Lactate (Haloperidol Lactate 5 Mg/Ml 1 Ml Vial) 10 mg IM Q4 PRN PRN Reason: Agitation Stop: 02/26/21 15:00 Last Admin: 01/28/21 15:27 Dose: 10 mg Documented by: Promethazine HCl 12.5 mg/ (Sodium Chloride) 50.5 mls @ 202 mls/hr IV Q6H PRN PRN Reason: Nausea And Vomiting Stop: 02/24/21 08:36 Pantoprazole Sodium 40 mg/ (Syringe) 10 mls @ 5 mls/min IV BID TRACY Stop: 02/24/21 20:59 Last Admin: 01/28/21 21:33 Dose: 5 mls/min Documented by: Lorazepam (Ativan) 1 mg in 2 mls @ 2 mls/min IV Q4H PRN; Protocol PRN Reason: Anxiety/Agitation Stop: 02/26/21 15:00 Lisinopril (Lisinopril 40 Mg Tab) 40 mg PO DAILY [facility] Stop: 02/25/21 08:59 Last Admin: 01/28/21 15:26 Dose: Not Given Documented by: [place] Carbonate ([place] Carbonate Slow Rel 300 Mg Tab) 600 mg PO HS [facility] Stop: 02/24/21 20:59 Last Admin: 01/28/21 21:32 Dose: 600 mg Documented by: [place] Citrate ([place] Oral Soln 300 Mg/5ml 500ml) 150 mg PO QAM [facility] Stop: 02/26/21 08:59 Last Admin: 01/28/21 15:26 Dose: Not Given Documented by: Lorazepam (Lorazepam 1 Mg Tab) 1 mg PO Q4H PRN PRN Reason: Anxiety/Agitation Stop: 02/25/21 16:05 Last Admin: 01/27/21 08:08 Dose: 1 mg Documented by: Lorazepam (Lorazepam 2 Mg/Ml Vial (Im Use)) 2 mg IM Q4 PRN; Protocol PRN Reason: Agitation Stop: 02/26/21 15:00 Last Admin: 01/28/21 15:27 Dose: 2 mg Documented by: Miscellaneous (Remove Nicoderm Patch) 1 ea N/A DAILY@0859 [facility] Stop: 02/25/21 08:58 Last Admin: 01/28/21 10:53 Dose: 1 ea Documented by: Nicotine (Nicotine 14 Mg/24 Hr Patch) 14 mg TD QAM [facility] Stop: 02/24/21 18:29 Last Admin: 01/28/21 09:45 Dose: 14 mg Documented by: Pantoprazole Sodium (Pantoprazole 40 Mg Tab) 40 mg PO DAILY [facility] Stop: 02/24/21 08:59 Quetiapine Fumarate (Quetiapine Fumarate 200 Mg Tab) 400 mg PO HS [facility] Stop: 02/27/21 20:59 Last Admin: 01/28/21 21:33 Dose: 400 mg Documented by: Tramadol HCl (Tramadol Hcl 50 Mg Tablet) 25 mg PO Q4H PRN PRN Reason: Pain Stop: 02/24/21 08:36 Last Admin: 01/27/21 09:06 Dose: 25 mg Documented by:
[2021-01-29] MEDS: NICOTINE 14 MG/24 HR PATCH TD SCH (09:44)
[2021-01-29] MEDS: lisinopril 40 MG TAB PO SCH (09:45)
[2021-01-29] MEDS: GABAPENTIN 400 MG CAP PO SCH (09:45)
[2021-01-29] MEDS: LITHIUM ORAL SOLN 300 MG/5ML 500ML PO SCH (09:45)
[2021-01-29] MEDS: DOXYCYCLINE HYCLATE 100 MG CAP PO SCH ×2 (09:46→20:56)
[2021-01-29] MEDS: amLODIPine BESYLATE 5 MG TAB PO SCH (09:46)
[2021-01-29] MEDS: traMADol HCL 50 MG TABLET PO PRN (09:48)
[2021-01-29] MEDS: PANTOprazole 40 MG in SYRINGE 0 ML IV SCH (09:55)
[2021-01-29] MEDS: haloperidoL 5 MG TAB PO PRN (11:52)
--- NOTE | 2021-01-29 14:02 | Hospitalist Progress Note ---
Date of Service January 29, 2021 Assessment & Plan (1) Shi: Plan: Mood disorder Present on admission after police found walking [place] the [place] naked Denies any suicidal thought but he is being on a 302 warrant Psych on board -appreciate input and recommendation Will not be able to transfer to the mental health unit since pt is COVID 19 positive Continue [place] and Zyprexa prn Has been having recurrent code chacko calls and requiring IM Zyprexa to control symptoms Will add Ativan 1mg q4h prn Pt cannot sign AMA Discussed with Dr. Mohan in detail and will administer antipsychotic medications as per her recommendation Remains medically stable to be discharged but has Covid isolation Remains stable medically without any shortness of breath except minimal cough Agree to have the Covid test today but did not want to stay for 2 days for the repeat test With limited vital signs examination and also blood work Discussed with Dr. Mohan in detail and agree with her recommendation to treat his psychiatric condition as below- "Antipsychotic medication is medically necessary to treat his bipolar disorder and without it there is serious risk of or harm to self or others within 30 days." He remains medically stable Will get Covid test 01/29/2021 B/L LE cellulitis Sepsis ruled out Doppler of LE showed no evidence of deep venous thrombus within the bilateral lower extremities. Continue doxycycline PO BID GI bleed Hgb 12.8 on admission Hgb stable today at 12 Gastro on board No plan for EGD/Colonoscopy for this admission Plan for outpatient EGD/Colonoscopy in 6 weeks Continue conservative management Continue clear liquid diet Continue PO PPI BID Elevated Liver Enzymes Mostly due to COVID 19/acute illness Liver enzymes with AST 116 and ALT 113 Continue monitor Liver enzymes if the patient is agreeable Elevated CPK level [place] CPK 2588 on admission, CPK 414 today received IVF Hypothyroidism Continue Cytomel for now Psych recommended to change to Synthroid but pt refused since psych provider was concerned that Cytomel may be more activating than Synthroid and thyroid supplements can contribute to shi TSH normal DVT px on SCD due to GI bleed CODE status FULL Code Disposition Pt cannot sign AMA Patient requesting for his to be updated of plan of care. Ms. Gayatri Diana, contact #[phone]. Admission and Anticipated Discharge Date Admission Date: January 25, 2021 Subjective 01/27/21 The patient was seen and examined in telemetry unit and in the Covid room He has been going through worsening paranoia and disorganized and threatening behavior due to his shi in the Covid unit He cannot be discharged even though medically stable Denies any symptoms related to Covid 19 01/28/2021 The patient remains stable and is been sleeping this morning No apparent distress noted 01/29/2021 The patient was seen and examined in telemetry unit and in the Covid room He does not have any symptoms except cough and has not been requiring any oxygen to maintain saturation He started to cry and wanted to go home and felt that doctors are keeping him in the hospital and not letting him go Review of Systems Review of Systems: And are unremarkable except as noted below Physical Exam Physical Exam: Lying in bed comfortably Constitutional: WD/WN, vitals as above Eyes: PERRL, conjunctivae normal, anicteric sclerae ENMT: external ear and nose normal, oropharynx normal Neck: trachea midline, no thyromegaly Respiratory: normal respiratory effort, lungs clear to auscultation Cardiovascular: Rate/Rhythm: regular rate and regular rhythm; not tachycardic Gastrointestinal (Abdomen): normal bowel sounds, soft, nontender, no hepatosplenomegaly Musculoskeletal: No acute arthritis in any joint Neurologic: Alert, awake and oriented x3. Very anxious and agitated at times. No focal neuro deficit Results & Data Results & Data ([facility]) Vital Signs (Past 12 Hours) Vital Signs Temp Pulse Pulse Resp BP Pulse Ox 01/29/21 11:00 37 C 103 H 18 137/80 99 01/29/21 07:00 37 C 75 16 157/93 H 98 01/29/21 02:44 36.6 C 71 16 142/87 H 96 Medications Administered Current Inpatient Medications Acetaminophen (Acetaminophen 325 Mg Tab) 325 mg PO Q6H PRN PRN Reason: Mild Pain Stop: 02/24/21 08:36 Last Admin: 01/27/21 09:07 Dose: 325 mg Documented by: Amlodipine Besylate (Amlodipine Besylate 5 Mg Tab) 10 mg PO DAILY [facility] Stop: 02/24/21 08:59 Last Admin: 01/29/21 09:46 Dose: 10 mg Documented by: Benztropine Mesylate (Benztropine Mesylate 1 Mg/Ml 2 Ml Amp) 1 mg IM Q6 PRN PRN Reason: dystonic reaction/muscle spasm Stop: 02/26/21 15:00 Doxycycline Hyclate (Doxycycline Hyclate 100 Mg Cap) 100 mg PO BID [facility] Stop: 02/01/21 20:59 Last Admin: 01/29/21 09:46 Dose: 100 mg Documented by: Gabapentin (Gabapentin 400 Mg Cap) 400 mg PO DAILY [facility] Stop: 02/24/21 08:59 Last Admin: 01/29/21 09:45 Dose: 400 mg Documented by: Haloperidol (Haloperidol 5 Mg Tab) 5 mg PO Q4 PRN PRN Reason: Anxiety/Agitation Stop: 02/27/21 05:23 Last Admin: 01/29/21 11:52 Dose: 5 mg Documented by: Haloperidol Lactate (Haloperidol Lactate 5 Mg/Ml 1 Ml Vial) 10 mg IM Q4 PRN PRN Reason: Agitation Stop: 02/26/21 15:00 Last Admin: 01/28/21 15:27 Dose: 10 mg Documented by: Promethazine HCl 12.5 mg/ (Sodium Chloride) 50.5 mls @ 202 mls/hr IV Q6H PRN PRN Reason: Nausea And Vomiting Stop: 02/24/21 08:36 Pantoprazole Sodium 40 mg/ (Syringe) 10 mls @ 5 mls/min IV BID [facility] Stop: 02/24/21 20:59 Last Admin: 01/29/21 09:55 Dose: 5 mls/min Documented by: Lorazepam (Ativan) 1 mg in 2 mls @ 2 mls/min IV Q4H PRN; Protocol PRN Reason: Anxiety/Agitation Stop: 02/26/21 15:00 Lisinopril (Lisinopril 40 Mg Tab) 40 mg PO DAILY [facility] Stop: 02/25/21 08:59 Last Admin: 01/29/21 09:45 Dose: 40 mg Documented by: [place] Carbonate ([place] Carbonate Slow Rel 300 Mg Tab) 600 mg PO HS [facility] Stop: 02/24/21 20:59 Last Admin: 01/28/21 21:32 Dose: 600 mg Documented by: [place] Citrate ([place] Oral Soln 300 Mg/5ml 500ml) 150 mg PO QAM [facility] Stop: 02/26/21 08:59 Last Admin: 01/29/21 09:45 Dose: 150 mg Documented by: Lorazepam (Lorazepam 1 Mg Tab) 1 mg PO Q4H PRN PRN Reason: Anxiety/Agitation Stop: 02/25/21 16:05 Last Admin: 01/27/21 08:08 Dose: 1 mg Documented by: Lorazepam (Lorazepam 2 Mg/Ml Vial (Im Use)) 2 mg IM Q4 PRN; Protocol PRN Reason: Agitation Stop: 02/26/21 15:00 Last Admin: 01/28/21 15:27 Dose: 2 mg Documented by: Miscellaneous (Remove Nicoderm Patch) 1 ea N/A DAILY@0859 [facility] Stop: 02/25/21 08:58 Last Admin: 01/29/21 09:53 Dose: 1 ea Documented by: Nicotine (Nicotine 14 Mg/24 Hr Patch) 14 mg TD QAM [facility] Stop: 02/24/21 18:29 Last Admin: 01/29/21 09:44 Dose: 14 mg Documented by: Pantoprazole Sodium (Pantoprazole 40 Mg Tab) 40 mg PO DAILY [facility] Stop: 02/24/21 08:59 Quetiapine Fumarate (Quetiapine Fumarate 200 Mg Tab) 400 mg PO HS [facility] Stop: 02/27/21 20:59 Last Admin: 01/28/21 21:33 Dose: 400 mg Documented by: Tramadol HCl (Tramadol Hcl 50 Mg Tablet) 25 mg PO Q4H PRN PRN Reason: Pain Stop: 02/24/21 08:36 Last Admin: 01/29/21 09:48 Dose: 25 mg Documented by:
[2021-01-29] MEDS: HALOPERIDOL LACTATE 5 MG/ML 1 ML VIAL IM PRN (16:16)
[2021-01-29] MEDS: LORazepam 2 MG/ML VIAL (IM USE) IM PRN (16:18)
[2021-01-29] MEDS: QUEtiapine FUMARATE 200 MG TAB PO SCH (20:56)
[2021-01-29] MEDS: PANTOprazole 40 MG TAB PO SCH (20:56)
[2021-01-29] MEDS: LITHIUM CARBONATE SLOW REL 300 MG TAB PO SCH (20:56)
[2021-01-30] MEDS: amLODIPine BESYLATE 5 MG TAB PO SCH (09:44)
[2021-01-30] MEDS: lisinopril 40 MG TAB PO SCH (09:46)
[2021-01-30] MEDS: GABAPENTIN 400 MG CAP PO SCH (09:47)
[2021-01-30] MEDS: DOXYCYCLINE HYCLATE 100 MG CAP PO SCH (09:48)
[2021-01-30] MEDS: NICOTINE 14 MG/24 HR PATCH TD SCH (09:49)
[2021-01-30] MEDS: PANTOprazole 40 MG TAB PO SCH (09:52)
[2021-01-30] MEDS: LITHIUM ORAL SOLN 300 MG/5ML 500ML PO SCH (09:54)
[2021-01-30] MEDS ORDERED: BENZTROPINE MESYLATE 1 MG TAB PO PRN (11:13)
[2021-01-30] MEDS: LORazepam 1 MG TAB PO PRN (11:28)
--- NOTE | 2021-01-30 11:30 | Psychiatric Progress Note ---
Date of Service January 30, 2021 Impression / Recommendations Impression 55 yo male with worsening paranoia and disorganized and threatening behavior in CovID isolation. He is currently unable to engage in even simple mental health assessments or social work planning due to his mental illness. Currently on 303 commitment. 01/30/21--awaiting second negative COVID test for d/c isolation and transfer to inpatient psychiatry. Patient has been inappropriate and/or refused programming, but liaison nurse to reattempt this pm. Staff alerted me to fact he reports having guns hidden at home. Reviewed that has secured house and she will be contacted re: this. Plan: Adding BID PO Cogentin 1 mg prn for EPS (current order was IM), direct care nurse notified that speech change likely side effect of Haldol. Currently not persistent and also no impact to swallow. (1) Shi: Risk Factors Assessment Do You Have Access To A Gun?: No (except maybe airsoft ) Interval History Identifying Information 55 yo male admit to [facility] for shi, medical treatment for rhabdo [place]. Chief Complaint ongoing irritability Review of Systems Notes unable to complete due to MS, per staff he is eating, sleep can be intermittent Subjective Subjective Patient was seen & assessed and interval progress reviewed with nursing and social work. I spoke with floor nurse for an update as patient generally refusing to meet with our service via telehealth. He has been cursing and pacing at times but taking prescribed medications PO. There was some concern re: some slurred speech/tongue curling that does not seem related to sedation, also "situational" in that if a female staff is present he is clearer. Threw his remote yesterday am, willing took IM medications as ordered without incident. Physical Exam Psychiatric unable to complete, patient uncooperative Vital Signs (Past 24 Hours) Last Vital Signs Temp 36.5 C 01/30/21 07:00 Pulse 83 01/30/21 07:00 Resp 16 01/30/21 07:00 BP 134/85 01/30/21 07:00 Pulse Ox 96 01/30/21 07:00 Results & Data ([facility]) Laboratory Results Laboratory Results - last 24 hr 01/29/21 01/29/21 13:09 13:09 COVID-19 Eval Order Covid19 at [facility] SARS-CoV-2 (PCR) NEGATIVE Current Inpatient Medications Current Inpatient Medications: Current Inpatient Medications Acetaminophen (Acetaminophen 325 Mg Tab) 325 mg PO Q6H PRN PRN Reason: Mild Pain Stop: 02/24/21 08:36 Last Admin: 01/27/21 09:07 Dose: 325 mg Documented by: Amlodipine Besylate (Amlodipine Besylate 5 Mg Tab) 10 mg PO DAILY [facility] Stop: 02/24/21 08:59 Last Admin: 01/30/21 09:44 Dose: 10 mg Documented by: Benztropine Mesylate (Benztropine Mesylate 1 Mg/Ml 2 Ml Amp) 1 mg IM Q6 PRN PRN Reason: dystonic reaction/muscle spasm Stop: 02/26/21 15:00 Benztropine Mesylate (Benztropine Mesylate 1 Mg Tab) 1 mg PO Q6 PRN PRN Reason: muscle tight/thick tongue Stop: 03/01/21 11:12 Doxycycline Hyclate (Doxycycline Hyclate 100 Mg Cap) 100 mg PO BID [facility] Stop: 02/01/21 20:59 Last Admin: 01/30/21 09:48 Dose: 100 mg Documented by: Gabapentin (Gabapentin 400 Mg Cap) 400 mg PO DAILY [facility] Stop: 02/24/21 08:59 Last Admin: 01/30/21 09:47 Dose: 400 mg Documented by: Haloperidol (Haloperidol 5 Mg Tab) 5 mg PO Q4 PRN PRN Reason: Anxiety/Agitation Stop: 02/27/21 05:23 Last Admin: 01/29/21 11:52 Dose: 5 mg Documented by: Haloperidol Lactate (Haloperidol Lactate 5 Mg/Ml 1 Ml Vial) 10 mg IM Q4 PRN PRN Reason: Agitation Stop: 02/26/21 15:00 Last Admin: 01/29/21 16:16 Dose: 10 mg Documented by: Promethazine HCl 12.5 mg/ (Sodium Chloride) 50.5 mls @ 202 mls/hr IV Q6H PRN PRN Reason: Nausea And Vomiting Stop: 02/24/21 08:36 Lorazepam (Ativan) 1 mg in 2 mls @ 2 mls/min IV Q4H PRN; Protocol PRN Reason: Anxiety/Agitation Stop: 02/26/21 15:00 Lisinopril (Lisinopril 40 Mg Tab) 40 mg PO DAILY [facility] Stop: 02/25/21 08:59 Last Admin: 01/30/21 09:46 Dose: 40 mg Documented by: [place] Carbonate ([place] Carbonate Slow Rel 300 Mg Tab) 600 mg PO HS [facility] Stop: 02/24/21 20:59 Last Admin: 01/29/21 20:56 Dose: 600 mg Documented by: [place] Citrate ([place] Oral Soln 300 Mg/5ml 500ml) 150 mg PO QAM [facility] Stop: 02/26/21 08:59 Last Admin: 01/30/21 09:54 Dose: 150 mg Documented by: Lorazepam (Lorazepam 1 Mg Tab) 1 mg PO Q4H PRN PRN Reason: Anxiety/Agitation Stop: 02/25/21 16:05 Last Admin: 01/27/21 08:08 Dose: 1 mg Documented by: Lorazepam (Lorazepam 2 Mg/Ml Vial (Im Use)) 2 mg IM Q4 PRN; Protocol PRN Reason: Agitation Stop: 02/26/21 15:00 Last Admin: 01/29/21 16:18 Dose: 2 mg Documented by: Miscellaneous (Remove Nicoderm Patch) 1 ea N/A DAILY@0859 [facility] Stop: 02/25/21 08:58 Last Admin: 01/30/21 09:48 Dose: 1 ea Documented by: Nicotine (Nicotine 14 Mg/24 Hr Patch) 14 mg TD QAM [facility] Stop: 02/24/21 18:29 Last Admin: 01/30/21 09:49 Dose: 14 mg Documented by: Pantoprazole Sodium (Pantoprazole 40 Mg Tab) 40 mg PO DAILY [facility] Stop: 02/24/21 08:59 Pantoprazole Sodium (Pantoprazole 40 Mg Tab) 40 mg PO BID [facility] Stop: 02/28/21 20:59 Last Admin: 01/30/21 09:52 Dose: 40 mg Documented by: Quetiapine Fumarate (Quetiapine Fumarate 200 Mg Tab) 400 mg PO HS [facility] Stop: 02/27/21 20:59 Last Admin: 01/29/21 20:56 Dose: 400 mg Documented by: Tramadol HCl (Tramadol Hcl 50 Mg Tablet) 25 mg PO Q4H PRN PRN Reason: Pain Stop: 02/24/21 08:36 Last Admin: 01/29/21 09:48 Dose: 25 mg Documented by:
[2021-01-30] MEDS: haloperidoL 5 MG TAB PO PRN (11:31)
--- NOTE | 2021-01-30 13:16 | Hospitalist Progress Note ---
Date of Service January 30, 2021 Assessment & Plan (1) Vikash: Plan: Mood disorder Present on admission after police found walking in the [place] naked Denies any suicidal thought but he is being on a 302 warrant Psych on board -appreciate input and recommendation Will not be able to transfer to the mental health unit since pt is COVID 19 positive Continue [place] and Zyprexa prn Has been having recurrent code chacko calls and requiring IM Zyprexa to control symptoms Will add Ativan 1mg q4h prn Pt cannot sign AMA Discussed with Dr. Mohan in detail and will administer antipsychotic medications as per her recommendation Remains medically stable to be discharged but has Covid isolation Remains stable medically without any shortness of breath except minimal cough Agree to have the Covid test today but did not want to stay for >1 day for the repeat test With limited vital signs examination and also blood work Management as per psychiatrist Discussed with Dr. Mohan in detail and agree with her recommendation to treat his psychiatric condition as below- "Antipsychotic medication is medically necessary to treat his bipolar disorder and without it there is serious risk of or harm to self or others within 30 days." He remains medically stable Will get Covid test 01/29/2021 We will repeat Covid test today and if negative he may be transferred to psych unit this evening Left lateral neck pain Likely musculoskeletal We will try diclofenac gel B/L LE cellulitis Sepsis ruled out Doppler of LE showed no evidence of deep venous thrombus within the bilateral lower extremities. Continue doxycycline PO BID GI bleed Hgb 12.8 on admission Hgb stable today at 12 Gastro on board No plan for EGD/Colonoscopy for this admission Plan for outpatient EGD/Colonoscopy in 6 weeks Continue conservative management Continue clear liquid diet Continue PO PPI BID Elevated Liver Enzymes Mostly due to COVID 19/acute illness Liver enzymes with AST 116 and ALT 113 Continue monitor Liver enzymes if the patient is agreeable Elevated CPK level Rabdo CPK 2588 on admission, CPK 414 today received IVF Hypothyroidism Continue Cytomel for now Psych recommended to change to Synthroid but pt refused since psych provider was concerned that Cytomel may be more activating than Synthroid and thyroid supplements can contribute to vikash TSH normal DVT px on SCD due to GI bleed CODE status FULL Code Disposition Pt cannot sign AMA Patient requesting for his to be updated of plan of care. Ms. Gayatri Hartmanjermainecorina, contact #[phone]. Admission and Anticipated Discharge Date Admission Date: January 25, 2021 Subjective 01/27/21 The patient was seen and examined in telemetry unit and in the Covid room He has been going through worsening paranoia and disorganized and threatening behavior due to his vikash in the Covid unit He cannot be discharged even though medically stable Denies any symptoms related to Covid 19 01/28/2021 The patient remains stable and is been sleeping this morning No apparent distress noted 01/29/2021 The patient was seen and examined in telemetry unit and in the Covid room He does not have any symptoms except cough and has not been requiring any oxygen to maintain saturation He started to cry and wanted to go home and felt that doctors are keeping him in the hospital and not letting him go 01/30/2021 The patient was seen and examined in telemetry unit and in the Covid room Another marissa ginna was called in this morning but the patient was managed to have oral medications He complains to have some neck pain but denies any shortness of breath and her cough He was agreeable to have second Covid testing today Review of Systems Review of Systems: And are unremarkable except as noted below Physical Exam Physical Exam: Lying in bed comfortably Constitutional: WD/WN, vitals as above Eyes: PERRL, conjunctivae normal, anicteric sclerae ENMT: external ear and nose normal, oropharynx normal Neck: trachea midline, no thyromegaly Respiratory: normal respiratory effort, lungs clear to auscultation Cardiovascular: Rate/Rhythm: regular rate and regular rhythm; not tachycardic Gastrointestinal (Abdomen): normal bowel sounds, soft, nontender, no hepatosplenomegaly Musculoskeletal: Except some tenderness in the left lateral neck area no other acute arthritis involving any of the joint Neurologic: Alert and awake. Agitated at times secondary to vikash Psychiatric: Has significant vikash and requiring hefty dose of oral and sometimes intramuscular meds medication as advised by the psychiatrist Results & Data Results & Data ([facility]) Vital Signs (Past 12 Hours) Vital Signs Temp Pulse Resp BP Pulse Ox 01/30/21 07:00 36.5 C 83 16 134/85 96 01/30/21 02:52 80 20 125/75 94
[2021-01-30] MEDS ORDERED: ACETAMINOPHEN 325 MG TAB PO PRN (16:23)
[2021-01-30] MEDS ORDERED: MAGNESIUM HYDROXIDE SUSP 30 ML UDC PO PRN (16:23)
[2021-01-30] MEDS ORDERED: BISMUTH SUBSALICYLATE LIQD 236 ML PO PRN (16:23)
[2021-01-30] MEDS ORDERED: ALUMINUM/MAGNESIUM SUSP 30 ML UDC PO PRN (16:23)
[2021-01-30] MEDS ORDERED: hydrOXYzine HCl 25 MG TAB PO PRN ×2 (16:23)
[2021-01-30] MEDS ORDERED: SODIUM CHLORIDE 0.65% NA SOLN 45 ML (OCEAN) PRN (16:23)
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
== END 2021-01-30 17:20 | DRG 602 ==
LOC: ED 22:00 → SUATTDRO 01-25 04:12 → 2E 01-25 04:12

== ENCOUNTER 2021-01-30 16:03 | Inpatient (IN) ==
[2021-01-30] MEDS ORDERED: ALUMINUM/MAGNESIUM SUSP 30 ML UDC PO PRN (16:30)
[2021-01-30] MEDS ORDERED: hydrOXYzine HCl 25 MG TAB PO PRN (16:30)
[2021-01-30] MEDS ORDERED: MAGNESIUM HYDROXIDE SUSP 30 ML UDC PO PRN (16:30)
[2021-01-30] MEDS ORDERED: SODIUM CHLORIDE 0.65% NA SOLN 45 ML (OCEAN) PRN (16:30)
[2021-01-30] MEDS ORDERED: BISMUTH SUBSALICYLATE LIQD 236 ML PO PRN (16:30)
[2021-01-30] MEDS ORDERED: LORazepam 2 MG/ML VIAL (IM USE) IM PRN (18:06)
[2021-01-30] MEDS ORDERED: BENZTROPINE MESYLATE 1 MG/ML 2 ML AMP IM PRN (18:06)
[2021-01-30] MEDS ORDERED: haloperidoL 5 MG TAB PO PRN (18:10)
[2021-01-30] MEDS: BENZTROPINE MESYLATE 1 MG TAB PO PRN (18:13)
[2021-01-30] MEDS ORDERED: HALOPERIDOL LACTATE 5 MG/ML 1 ML VIAL IM PRN (18:18)
[2021-01-30] MEDS: amLODIPine BESYLATE 5 MG TAB PO SCH (18:39)
[2021-01-30] MEDS: LORazepam 1 MG TAB PO PRN (19:08)
[2021-01-30] MEDS: DOXYCYCLINE HYCLATE 100 MG CAP PO SCH (21:18)
[2021-01-30] MEDS: PANTOprazole 40 MG TAB PO SCH (21:18)
[2021-01-30] MEDS: LITHIUM CARBONATE 300 MG TAB PO SCH (21:19)
[2021-01-30] MEDS ORDERED: QUEtiapine FUMARATE 200 MG TAB PO SCH (22:00)
[2021-01-30] MEDS: QUEtiapine FUMARATE 100 MG TABLET PO PRN (22:08)
[2021-01-31] MEDS: lisinopril 40 MG TAB PO SCH (07:34)
[2021-01-31] MEDS: amLODIPine BESYLATE 5 MG TAB PO SCH (07:34)
[2021-01-31] MEDS: DOXYCYCLINE HYCLATE 100 MG CAP PO SCH ×2 (07:34→21:08)
[2021-01-31] MEDS: GABAPENTIN 400 MG CAP PO SCH (07:34)
[2021-01-31] MEDS: LITHIUM ORAL SOLN 300 MG/5ML 500ML PO SCH (07:35)
[2021-01-31] MEDS: PANTOprazole 40 MG TAB PO SCH ×2 (07:35→21:08)
[2021-01-31] MEDS: QUEtiapine FUMARATE 100 MG TABLET PO PRN (07:52)
[2021-01-31] MEDS: LORazepam 1 MG TAB PO PRN ×2 (07:52→21:34)
[2021-01-31] MEDS: BENZTROPINE MESYLATE 1 MG TAB PO PRN (07:53)
--- NOTE | 2021-01-31 15:26 | Psychiatric Progress Note ---
Date of Service January 31, 2021 Impression / Recommendations Impression This is a 55-year-old male with bipolar disorder currently in a manic episode. Patient is being stabilized on lithium as well as second-generation antipsychotics. (1) Shi: (2) Bipolar 1 disorder: The patient was admitted to the [facility] ([facility]) on every 15 minute checks (behavioral with suicide precautions for safety. The patient will participate in group, recreational, and milieu therapies and will be offered additional individual and family sessions as clinically appropriate. 01/31/2021ontinue current medication regimen consisting 750 mg of lithium daily, Seroquel increased to 500 mg nightly. Interval History Chief Complaint "I just want to talk to somebody, what do you do here?". Review of Systems Sleep Information Total Hours of Sleep: 6 Meal Information Percent Meal Consumed - Breakfast: 100 Percent Meal Consumed - Lunch: 100 Subjective Subjective Patient was seen & assessed and interval progress reviewed with treatment team nursing and social work Patient continues to be manic and hyperverbal, and exhibit pressured speech with grandiose delusions and flight of ideas thought process. He is however not as violent or aggressive today and has not shown any signs of behavior dysregulation. He acknowledges that he is currently in a manic episode, which she states he has been in does at times throughout his life. He acknowledges that he needs medication and willing to take increasing dosages of medication to target his symptoms. Patient did report some tongue swelling from Haldol medication, but denies any side effects from his current regimen of seroquel/lithium I spent 30 minutes with the patient, 50% of which was dedicated to counselling and coordination of care. Physical Exam Psychiatric Orientation: alert Apperance: appropriately dressed Eye Contact: good eye contact restlessness Speech: + pressured speech Affect: + elated affect Mood: + anxious mood Thought Process: + tangential thought process and + flight of ideas Thought Content: + preoccupation, + delusions and + ideas of reference Suicidal Thoughts: denies suicidal thoughts Homicidal Thoughts: denies homicidal thoughts Hallucinations: no auditory hallucinations Cognition: recent memory grossly intact Estimated Intelligence: average estimated intelligence Insight: + limited insight Judgement: + poor judgement Vital Signs (Past 24 Hours) Last Vital Signs Temp 36.6 C 01/31/21 07:02 Pulse 90 01/31/21 07:02 Resp 18 01/31/21 07:02 BP 131/80 01/31/21 07:02 Pulse Ox 97 01/30/21 19:19 Results & Data ([facility]) Current Inpatient Medications Current Inpatient Medications: Current Inpatient Medications Acetaminophen (Acetaminophen 325 Mg Tab) 650 mg PO Q4H PRN PRN Reason: Headache or Minor Fever Stop: 03/01/21 16:29 Al Hydrox/Mg Hydrox/Simethicone (Aluminum/Magnesium Susp 30 Ml Udc) 30 ml PO Q4H PRN PRN Reason: GI Upset Stop: 03/01/21 16:29 Amlodipine Besylate (Amlodipine Besylate 5 Mg Tab) 10 mg PO QAM [facility] Stop: 03/01/21 18:09 Last Admin: 01/31/21 07:34 Dose: 10 mg Documented by: Benztropine Mesylate (Benztropine Mesylate 1 Mg Tab) 1 mg PO Q6 PRN PRN Reason: EPS Stop: 03/01/21 17:55 Last Admin: 01/31/21 07:53 Dose: 1 mg Documented by: Benztropine Mesylate (Benztropine Mesylate 1 Mg/Ml 2 Ml Amp) 1 mg IM Q6 PRN PRN Reason: Agitation Stop: 03/01/21 18:05 Bismuth Subsalicylate (Bismuth Subsalicylate Liqd 236 Ml) 15 ml PO PRN PRN PRN Reason: Loose Stool Stop: 03/01/21 16:29 Doxycycline Hyclate (Doxycycline Hyclate 100 Mg Cap) 100 mg PO BID [facility] Stop: 01/31/21 21:01 Last Admin: 01/31/21 07:34 Dose: 100 mg Documented by: Gabapentin (Gabapentin 400 Mg Cap) 400 mg PO QAM [facility] Stop: 03/02/21 08:59 Last Admin: 01/31/21 07:34 Dose: 400 mg Documented by: Haloperidol Lactate (Haloperidol Lactate 5 Mg/Ml 1 Ml Vial) 10 mg IM Q6 PRN PRN Reason: Agitation Stop: 03/01/21 18:17 Hydroxyzine HCl (Hydroxyzine Hcl 25 Mg Tab) 50 mg PO HSZ PRN PRN Reason: Insomnia Stop: 03/01/21 16:29 Hydroxyzine HCl (Hydroxyzine Hcl 25 Mg Tab) 25 mg PO Q4H PRN PRN Reason: Anxiety Stop: 03/01/21 16:29 Lisinopril (Lisinopril 40 Mg Tab) 40 mg PO QAM [facility] Stop: 03/02/21 08:59 Last Admin: 01/31/21 07:34 Dose: 40 mg Documented by: [place] Carbonate ([place] Carbonate 300 Mg Tab) 600 mg PO HS [facility] Stop: 03/01/21 21:59 Last Admin: 01/30/21 21:19 Dose: 600 mg Documented by: [place] Citrate ([place] Oral Soln 300 Mg/5ml 500ml) 150 mg PO QAM [facility] Stop: 03/02/21 08:59 Last Admin: 01/31/21 07:35 Dose: 150 mg Documented by: Lorazepam (Lorazepam 2 Mg/Ml Vial (Im Use)) 2 mg IM Q6 PRN PRN Reason: Agitation Stop: 03/01/21 18:05 Lorazepam (Lorazepam 1 Mg Tab) 2 mg PO Q4 PRN PRN Reason: Anxiety/Agitation Stop: 03/01/21 18:14 Magnesium Hydroxide (Magnesium Hydroxide Susp 30 Ml Udc) 30 ml PO DAILY PRN PRN Reason: Constipation Stop: 03/01/21 16:29 Pantoprazole Sodium (Pantoprazole 40 Mg Tab) 40 mg PO BID [facility] Stop: 03/01/21 20:59 Last Admin: 01/31/21 07:35 Dose: 40 mg Documented by: Quetiapine Fumarate (Quetiapine Fumarate 100 Mg Tablet) 100 mg PO Q6 PRN PRN Reason: Anxiety/Agitation Stop: 03/02/21 00:00 Last Admin: 01/31/21 07:52 Dose: 100 mg Documented by: Quetiapine Fumarate (Quetiapine Fumarate 100 Mg Tablet) 500 mg PO HS [facility] Stop: 03/02/21 21:59 Sodium Chloride (Sodium Chloride 0.65% Na Soln 45 Ml ([place])) 1 - 2 sprays NA PRN PRN PRN Reason: Nasal Dryness/Congestion Stop: 03/01/21 16:29 Mental Health & Subst Abuse Tx Psychiatrist Name of Psychiatrist: [facility] - Dr. Christianson Psychiatrist's Psychiatric Appointment Comment: [address] , [address], [place], [place] Post Discharge Appointments Primary Care Physician Name Of Family Doctor: Zahida Coffman Primary Care Contact Information Discharge Discharge Address: [facility] [place] [address]
[2021-01-31] MEDS ORDERED: QUEtiapine FUMARATE 100 MG TABLET PO PRN (15:27)
[2021-01-31] MEDS: NICOTINE 21 MG/24 HR TDSY TD SCH (19:39)
[2021-01-31] MEDS: LITHIUM CARBONATE 300 MG TAB PO SCH (21:08)
[2021-01-31] MEDS ORDERED: QUEtiapine FUMARATE 100 MG TABLET PO SCH (22:00)
[2021-02-01] MEDS: lisinopril 40 MG TAB PO SCH (07:50)
[2021-02-01] MEDS: ACETAMINOPHEN 325 MG TAB PO PRN (07:50)
[2021-02-01] MEDS: GABAPENTIN 400 MG CAP PO SCH (07:50)
[2021-02-01] MEDS: amLODIPine BESYLATE 5 MG TAB PO SCH (07:51)
[2021-02-01] MEDS: LITHIUM ORAL SOLN 300 MG/5ML 500ML PO SCH (07:51)
[2021-02-01] MEDS: PANTOprazole 40 MG TAB PO SCH ×2 (07:51→21:49)
[2021-02-01] MEDS: NICOTINE 21 MG/24 HR TDSY TD SCH (08:24)
[2021-02-01] MEDS: LORazepam 1 MG TAB PO PRN ×2 (12:07→17:33)
[2021-02-01] MEDS: NICOTINE POLACRILEX 2 MG GUM MT PRN (12:07)
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
[2021-02-01] MEDS: traMADol HCL 50 MG TABLET PO PRN ×2 (17:33→21:50)
[2021-02-01] MEDS: QUEtiapine FUMARATE 300 MG TABLET PO SCH (21:48)
[2021-02-01] MEDS ORDERED: LITHIUM CARBONATE 300 MG TAB PO SCH (22:00)
[2021-02-02] MEDS: amLODIPine BESYLATE 5 MG TAB PO SCH (08:40)
[2021-02-02] MEDS: lisinopril 40 MG TAB PO SCH (08:40)
[2021-02-02] MEDS: PANTOprazole 40 MG TAB PO SCH ×2 (08:40→21:50)
[2021-02-02] MEDS: GABAPENTIN 400 MG CAP PO SCH (08:40)
[2021-02-02] MEDS: NICOTINE 21 MG/24 HR TDSY TD SCH (08:54)
[2021-02-02] MEDS ORDERED: LITHIUM CARBONATE 300 MG TAB PO SCH (09:00)
[2021-02-02] MEDS: traMADol HCL 50 MG TABLET PO PRN ×2 (09:43→17:04)
[2021-02-02] MEDS: LITHIUM CARBONATE 300 MG TAB PO SCH ×2 (09:43→21:50)
--- NOTE | 2021-02-02 10:42 | Psychiatric Progress Note ---
Date of Service February 02, 2021 Impression / Recommendations Impression This is a 55-year-old male with bipolar disorder currently in a manic episode. Patient is being stabilized on lithium as well as second-generation antipsychotics.Patient making incremental progress (1) Shi: (2) Bipolar 1 disorder: The patient was admitted to the [facility]) on every 15 minute checks (behavioral with suicide precautions for safety. The patient will participate in group, recreational, and milieu therapies and will be offered additional individual and family sessions as clinically appropriate. 01/31/2021ontinue current medication regimen consisting 750 mg of lithium daily, Seroquel increased to 500 mg nightly. 02/01/2021We will plan to draw lithium level tomorrow. We will also plan to interspace patient's lithium to more evenly distributed medication regimen. We will increase Seroquel to 600 mg nightly 02/02/2021ithium level low, will increase dose to 450 mg p.o. twice daily. Will leave Seroquel dose at 600 mg p.o. nightly for now. Interval History Chief Complaint "I am sorry I know I was not appropriate". Review of Systems Sleep Information Total Hours of Sleep: 6.5 Sleep Comments: pt on q-15 minute checks Meal Information Percent Meal Consumed - Breakfast: 100 Percent Meal Consumed - Lunch: 100 Percent Meal Consumed - Dinner: 100 Subjective Subjective Patient was seen & assessed and interval progress reviewed with treatment team nursing and social work Patient continues to be manic, hyperverbal, delusional, grandiose, and potentially hypersexual. He was redirected after having made it appropriate drugs to female patients on the unit. Initially irritable this morning regarding length of stay, but was able to to tolerate after lengthy discussion with display card writer. Patient requires frequent redirection and constant surveillance. Eating his meals and reports sleeping without issue. Today his lithium level came back low at 0.4. He was instructed that his dosage of lithium would have to be adjusted accordingly. I spent 30 minutes with the patient, 50% of which was dedicated to counselling and coordination of care. Physical Exam Psychiatric Orientation: alert Apperance: appropriately dressed Eye Contact: good eye contact Speech: + pressured speech Affect: + elated affect Mood: + anxious mood Thought Process: + tangential thought process and + flight of ideas Thought Content: + preoccupation, + delusions and + ideas of reference Suicidal Thoughts: denies suicidal thoughts Homicidal Thoughts: denies homicidal thoughts Hallucinations: no auditory hallucinations Cognition: recent memory grossly intact Estimated Intelligence: average estimated intelligence Insight: + limited insight Judgement: + poor judgement Vital Signs (Past 24 Hours) Last Vital Signs Temp 36.6 C 02/02/21 06:44 Pulse 116 H 02/02/21 06:44 Resp 16 02/02/21 06:44 BP 133/94 02/02/21 06:44 Pulse Ox 97 01/30/21 19:19 Results & Data ([facility]) Laboratory Results Laboratory Results - last 24 hr 02/02/21 07:47 [place] 0.4 L Current Inpatient Medications Current Inpatient Medications: Current Inpatient Medications Acetaminophen (Acetaminophen 325 Mg Tab) 650 mg PO Q4H PRN PRN Reason: Headache or Minor Fever Stop: 03/01/21 16:29 Last Admin: 02/01/21 07:50 Dose: 650 mg Documented by: Al Hydrox/Mg Hydrox/Simethicone (Aluminum/Magnesium Susp 30 Ml Udc) 30 ml PO Q4H PRN PRN Reason: GI Upset Stop: 03/01/21 16:29 Last Admin: 02/01/21 06:53 Dose: 30 ml Documented by: Amlodipine Besylate (Amlodipine Besylate 5 Mg Tab) [facility] Stop: 03/01/21 18:09 Last Admin: 02/02/21 08:40 Dose: 10 mg Documented by: Benztropine Mesylate (Benztropine Mesylate 1 Mg Tab) 1 mg PO Q6 PRN PRN Reason: EPS Stop: 03/01/21 17:55 Last Admin: 01/31/21 07:53 Dose: 1 mg Documented by: Benztropine Mesylate (Benztropine Mesylate 1 Mg/Ml 2 Ml Amp) 1 mg IM Q6 PRN PRN Reason: Agitation Stop: 03/01/21 18:05 Bismuth Subsalicylate (Bismuth Subsalicylate Liqd 236 Ml) 15 ml PO PRN PRN PRN Reason: Loose Stool Stop: 03/01/21 16:29 Gabapentin (Gabapentin 400 Mg Cap) 400 mg PO QAM [facility] Stop: 03/02/21 08:59 Last Admin: 02/02/21 08:40 Dose: 400 mg Documented by: Haloperidol Lactate (Haloperidol Lactate 5 Mg/Ml 1 Ml Vial) 10 mg IM Q6 PRN PRN Reason: Agitation Stop: 03/01/21 18:17 Hydroxyzine HCl (Hydroxyzine Hcl 25 Mg Tab) 50 mg PO HSZ PRN PRN Reason: Insomnia Stop: 03/01/21 16:29 Hydroxyzine HCl (Hydroxyzine Hcl 25 Mg Tab) 25 mg PO Q4H PRN PRN Reason: Anxiety Stop: 03/01/21 16:29 Lisinopril (Lisinopril 40 Mg Tab) 40 mg PO QAM [facility] Stop: 03/02/21 08:59 Last Admin: 02/02/21 08:40 Dose: 40 mg Documented by: [place] Carbonate ([place] Carbonate 300 Mg Tab) 450 mg PO BID [facility] Stop: 03/04/21 09:14 Last Admin: 02/02/21 09:43 Dose: 450 mg Documented by: Lorazepam (Lorazepam 2 Mg/Ml Vial (Im Use)) 2 mg IM Q6 PRN PRN Reason: Agitation Stop: 03/01/21 18:05 Lorazepam (Lorazepam 1 Mg Tab) 2 mg PO Q4 PRN PRN Reason: Anxiety/Agitation Stop: 03/01/21 18:14 Last Admin: 02/01/21 17:33 Dose: 2 mg Documented by: Magnesium Hydroxide (Magnesium Hydroxide Susp 30 Ml Udc) 30 ml PO DAILY PRN PRN Reason: Constipation Stop: 03/01/21 16:29 Miscellaneous (Remove Nicoderm Patch) 1 ea N/A DAILY@0859 [facility] Stop: 03/03/21 08:58 Last Admin: 02/02/21 08:53 Dose: 1 ea Documented by: Nicotine (Nicotine 21 Mg/24 Hr Tdsy) 21 mg TD QAM [facility] Stop: 03/02/21 18:59 Last Admin: 02/02/21 08:54 Dose: 21 mg Documented by: Nicotine Polacrilex (Nicotine Polacrilex 2 Mg Gum) 1 piece MT Q2HWA PRN PRN Reason: smoking Stop: 03/03/21 10:16 Last Admin: 02/01/21 12:07 Dose: 1 piece Documented by: Pantoprazole Sodium (Pantoprazole 40 Mg Tab) 40 mg PO BID [facility] Stop: 03/01/21 20:59 Last Admin: 02/02/21 08:40 Dose: 40 mg Documented by: Quetiapine Fumarate (Quetiapine Fumarate 100 Mg Tablet) 100 mg PO Q8 PRN PRN Reason: Anxiety/Agitation Stop: 03/01/21 18:10 Last Admin: 02/01/21 12:07 Dose: 100 mg Documented by: Quetiapine Fumarate (Quetiapine Fumarate 300 Mg Tablet) 600 mg PO HS [facility] Stop: 03/03/21 21:59 Last Admin: 02/01/21 21:48 Dose: 600 mg Documented by: Sodium Chloride (Sodium Chloride 0.65% Na Soln 45 Ml ([place])) 1 - 2 sprays NA PRN PRN PRN Reason: Nasal Dryness/Congestion Stop: 03/01/21 16:29 Tramadol HCl (Tramadol Hcl 50 Mg Tablet) 100 mg PO BID PRN PRN Reason: Pain Stop: 03/03/21 10:18 Last Admin: 02/02/21 09:43 Dose: 100 mg Documented by: Mental Health & Subst Abuse Tx Psychiatrist Name of Psychiatrist: [facility] - Dr. Christianson Psychiatrist's Date of Appointment with Psychiatrist: 03/04/21 Time of Appointment with Psychiatrist: 10:10 a.m. Psychiatric Appointment Comment: Telehealth - on the cancellation list for an earlier appt Post Discharge Appointments Primary Care Physician Name Of Family Doctor: Zahida Coffman Primary Care Contact Information Discharge Discharge Address: [address] [place] [address] [place] [address]
[2021-02-02] MEDS: ACETAMINOPHEN 325 MG TAB PO PRN (19:21)
[2021-02-02] MEDS: NICOTINE POLACRILEX 2 MG GUM MT PRN (19:27)
[2021-02-02] MEDS: QUEtiapine FUMARATE 300 MG TABLET PO SCH (21:49)
[2021-02-03] MEDS: traMADol HCL 50 MG TABLET PO PRN (06:54)
[2021-02-03] MEDS: amLODIPine BESYLATE 5 MG TAB PO SCH (08:07)
[2021-02-03] MEDS: lisinopril 40 MG TAB PO SCH (08:07)
[2021-02-03] MEDS: GABAPENTIN 400 MG CAP PO SCH (08:07)
[2021-02-03] MEDS: LITHIUM CARBONATE 300 MG TAB PO SCH ×2 (08:08→20:51)
[2021-02-03] MEDS: PANTOprazole 40 MG TAB PO SCH ×2 (08:13→20:51)
[2021-02-03] MEDS ORDERED: QUEtiapine FUMARATE 100 MG TABLET PO SCH (09:15)
--- NOTE | 2021-02-03 10:32 | Psychiatric Progress Note ---
Date of Service February 03, 2021 Impression / Recommendations Impression This is a 55-year-old male with bipolar disorder currently in a manic episode. Patient is being stabilized on lithium as well as second-generation antipsychotics.Patient making incremental progress (1) Shi: (2) Bipolar 1 disorder: The patient was admitted to the [facility] ([facility]) on every 15 minute checks (behavioral with suicide precautions for safety. The patient will participate in group, recreational, and milieu therapies and will be offered additional individual and family sessions as clinically appropriate. 01/31/2021ontinue current medication regimen consisting 750 mg of lithium daily, Seroquel increased to 500 mg nightly. 02/01/2021We will plan to draw lithium level tomorrow. We will also plan to interspace patient's lithium to more evenly distributed medication regimen. We will increase Seroquel to 600 mg nightly 02/02/2021ithium level low, will increase dose to 450 mg p.o. twice daily. Will leave Seroquel dose at 600 mg p.o. nightly for now. 02/03/2021eroquel increased to 100 mg p.o. every morning, 600 mg p.o. nightly. Interval History Chief Complaint "I think we could take a take over the world" Review of Systems Sleep Information Total Hours of Sleep: 5.5 Sleep Comments: pt on q-15 minute cheks Meal Information Percent Meal Consumed - Breakfast: 100 Percent Meal Consumed - Lunch: 25 Percent Meal Consumed - Dinner: 70 Nutrition Comment: per meal record Subjective Subjective Patient was seen & assessed and interval progress reviewed with treatment team nursing and social work Patient continues to be hyperverbal, grandiose, pressured in speech, and inappropriate with peers. Quires frequent redirection. Patient's medication was increased today, patient was compliant without any reported or observed side effects. He continues to require ALOK area due to safety considerations. Eating and sleeping okay. Sleep estimated at 5-1/2 hours of sleep last night. Patient remains hyper focused on the fact that today is his marriage anniversary. Has little appreciation for the fact that his is him and currently has PFA out against him. Physical Exam Psychiatric Orientation: alert Apperance: appropriately dressed Eye Contact: good eye contact Speech: + pressured speech Affect: + elated affect Mood: + anxious mood Thought Process: + tangential thought process and + flight of ideas Thought Content: + preoccupation, + delusions and + ideas of reference Suicidal Thoughts: denies suicidal thoughts Homicidal Thoughts: denies homicidal thoughts Hallucinations: no auditory hallucinations Cognition: recent memory grossly intact Estimated Intelligence: average estimated intelligence Insight: + limited insight Judgement: + poor judgement Vital Signs (Past 24 Hours) Last Vital Signs Temp 36.5 C 02/03/21 06:37 Pulse 114 H 02/03/21 06:38 Resp 18 02/03/21 06:37 BP 112/86 02/03/21 06:38 Pulse Ox 97 01/30/21 19:19 Results & Data ([facility]) Current Inpatient Medications Current Inpatient Medications: Current Inpatient Medications Acetaminophen (Acetaminophen 325 Mg Tab) 650 mg PO Q4H PRN PRN Reason: Headache or Minor Fever Stop: 03/01/21 16:29 Last Admin: 02/02/21 19:21 Dose: 650 mg Documented by: Al Hydrox/Mg Hydrox/Simethicone (Aluminum/Magnesium Susp 30 Ml Udc) 30 ml PO Q4H PRN PRN Reason: GI Upset Stop: 03/01/21 16:29 Last Admin: 02/01/21 06:53 Dose: 30 ml Documented by: Amlodipine Besylate (Amlodipine Besylate 5 Mg Tab) 10 mg PO QAM [facility] Stop: 03/01/21 18:09 Last Admin: 02/03/21 08:07 Dose: 10 mg Documented by: Benztropine Mesylate (Benztropine Mesylate 1 Mg Tab) 1 mg PO Q6 PRN PRN Reason: EPS Stop: 03/01/21 17:55 Last Admin: 01/31/21 07:53 Dose: 1 mg Documented by: Benztropine Mesylate (Benztropine Mesylate 1 Mg/Ml 2 Ml Amp) 1 mg IM Q6 PRN PRN Reason: Agitation Stop: 03/01/21 18:05 Bismuth Subsalicylate (Bismuth Subsalicylate Liqd 236 Ml) 15 ml PO PRN PRN PRN Reason: Loose Stool Stop: 03/01/21 16:29 Gabapentin (Gabapentin 400 Mg Cap) 400 mg PO QAM [facility] Stop: 03/02/21 08:59 Last Admin: 02/03/21 08:07 Dose: 400 mg Documented by: Haloperidol Lactate (Haloperidol Lactate 5 Mg/Ml 1 Ml Vial) 10 mg IM Q6 PRN PRN Reason: Agitation Stop: 03/01/21 18:17 Hydroxyzine HCl (Hydroxyzine Hcl 25 Mg Tab) 50 mg PO HSZ PRN PRN Reason: Insomnia Stop: 03/01/21 16:29 Hydroxyzine HCl (Hydroxyzine Hcl 25 Mg Tab) 25 mg PO Q4H PRN PRN Reason: Anxiety Stop: 03/01/21 16:29 Lisinopril (Lisinopril 40 Mg Tab) 40 mg PO QAM [facility] Stop: 03/02/21 08:59 Last Admin: 02/03/21 08:07 Dose: 40 mg Documented by: [place] Carbonate ([place] Carbonate 300 Mg Tab) 450 mg PO BID [facility] Stop: 03/04/21 09:14 Last Admin: 02/03/21 08:08 Dose: 450 mg Documented by: Lorazepam (Lorazepam 2 Mg/Ml Vial (Im Use)) 2 mg IM Q6 PRN PRN Reason: Agitation Stop: 03/01/21 18:05 Lorazepam (Lorazepam 1 Mg Tab) 2 mg PO Q4 PRN PRN Reason: Anxiety/Agitation Stop: 03/01/21 18:14 Last Admin: 02/01/21 17:33 Dose: 2 mg Documented by: Magnesium Hydroxide (Magnesium Hydroxide Susp 30 Ml Udc) 30 ml PO DAILY PRN PRN Reason: Constipation Stop: 03/01/21 16:29 Miscellaneous (Remove Nicoderm Patch) 1 ea N/A DAILY@0859 [facility] Stop: 03/03/21 08:58 Last Admin: 02/03/21 08:14 Dose: Not Given Documented by: Nicotine Polacrilex (Nicotine Polacrilex 2 Mg Gum) 1 piece MT Q2HWA PRN PRN Reason: smoking Stop: 03/03/21 10:16 Last Admin: 02/02/21 19:27 Dose: 1 piece Documented by: Pantoprazole Sodium (Pantoprazole 40 Mg Tab) 40 mg PO BID [facility] Stop: 03/01/21 20:59 Last Admin: 02/03/21 08:13 Dose: 40 mg Documented by: Quetiapine Fumarate (Quetiapine Fumarate 100 Mg Tablet) 100 mg PO Q8 PRN PRN Reason: Anxiety/Agitation Stop: 03/01/21 18:10 Last Admin: 02/01/21 12:07 Dose: 100 mg Documented by: Quetiapine Fumarate (Quetiapine Fumarate 300 Mg Tablet) 600 mg PO HS [facility] Stop: 03/03/21 21:59 Last Admin: 02/02/21 21:49 Dose: 600 mg Documented by: Quetiapine Fumarate (Quetiapine Fumarate 100 Mg Tablet) 100 mg PO QAM [facility] Stop: 03/05/21 09:14 Last Admin: 02/03/21 09:53 Dose: 100 mg Documented by: Sodium Chloride (Sodium Chloride 0.65% Na Soln 45 Ml ([place])) 1 - 2 sprays NA PRN PRN PRN Reason: Nasal Dryness/Congestion Stop: 03/01/21 16:29 Tramadol HCl (Tramadol Hcl 50 Mg Tablet) 100 mg PO BID PRN PRN Reason: Pain Stop: 03/03/21 10:18 Last Admin: 02/03/21 06:54 Dose: 100 mg Documented by: Mental Health & Subst Abuse Tx Psychiatrist Name of Psychiatrist: [facility] - Dr. Christianson Psychiatrist's Date of Appointment with Psychiatrist: 03/04/21 Time of Appointment with Psychiatrist: 10:10 a.m. Psychiatric Appointment Comment: Telehealth - on the cancellation list for an earlier appt Post Discharge Appointments Primary Care Physician Name Of Family Doctor: Zahida Co[facility]man Primary [facility] Contact Information Discharge Discharge Address: [address] [place] [address] [place] [address]
[2021-02-03] MEDS: NICOTINE POLACRILEX 2 MG GUM MT PRN ×3 (13:43→21:04)
[2021-02-03] MEDS: QUEtiapine FUMARATE 300 MG TABLET PO SCH (20:51)
[2021-02-03] MEDS ORDERED: diphenhydrAMINE 50 MG/ML VIAL IM PRN (22:32)
--- NOTE | 2021-02-03 22:46 | Communication Note ---
Date of Service: February 03, 2021 Psychiatrist technologies division chair called in for agitated patient requiring brief manual hold. Arrived at 10:10pm. Photographer is familiar with this patient as I am serving as primary provider on case as well. Per report: Patient was aggressive, and irritable, posturing and threatening. He was verbally redirected multiple times but was then resistant. Security was c alled, and further attempts to talk down patient were unsuccessful. Patient approached charge nurse in threatening manner, with clenched fists, was verbally hostile. Stated he would beat nurse. Patient was placed in a momentary manual hold and given IM medications of Haldol 10mg, Ativan 2mg at approximately 9:16pm. Photographer briefed with staff and evaluated patient at approximately 10:15pm. He was sleeping but arousable. Irritable upon arousal,and voiced negative feelings towards staff. Complained of leg pain, but was evaluated and seen to be without acute issue. Vitals signs were taken and were within normal limits. Blood pressure was 107/65 Heart rate was 116. RR 18. Medication with good effect.
[2021-02-04] MEDS: GABAPENTIN 400 MG CAP PO SCH (08:41)
[2021-02-04] MEDS: amLODIPine BESYLATE 5 MG TAB PO SCH (08:41)
[2021-02-04] MEDS: lisinopril 40 MG TAB PO SCH (08:41)
[2021-02-04] MEDS: QUEtiapine FUMARATE 200 MG TAB PO SCH (08:42)
[2021-02-04] MEDS: PANTOprazole 40 MG TAB PO SCH ×2 (08:42→21:12)
[2021-02-04] MEDS: LITHIUM CARBONATE 300 MG TAB PO SCH ×2 (08:42→21:10)
[2021-02-04] MEDS ORDERED: haloperidoL 5 MG TAB PO PRN (08:50)
[2021-02-04] MEDS ORDERED: HALOPERIDOL LACTATE 5 MG/ML 1 ML VIAL IM PRN (08:50)
[2021-02-04] MEDS: NICOTINE POLACRILEX 2 MG GUM MT PRN ×2 (14:18→18:31)
--- NOTE | 2021-02-04 15:50 | Psychiatric Progress Note ---
Date of Service February 04, 2021 Impression / Recommendations Impression This is a 55-year-old male with bipolar disorder currently in a manic episode. Patient is being stabilized on lithium as well as second-generation antipsychotics.Patient making incremental progress (1) Shi: (2) Bipolar 1 disorder: The patient was admitted to the [facility] ([facility] health unit) on every 15 minute checks (behavioral with suicide precautions for safety. The patient will participate in group, recreational, and milieu therapies and will be offered additional individual and family sessions as clinically appropriate. 01/31/2021ontinue current medication regimen consisting 750 mg of lithium daily, Seroquel increased to 500 mg nightly. 02/01/2021We will plan to draw lithium level tomorrow. We will also plan to interspace patient's lithium to more evenly distributed medication regimen. We will increase Seroquel to 600 mg nightly 02/02/2021ithium level low, will increase dose to 450 mg p.o. twice daily. Will leave Seroquel dose at 600 mg p.o. nightly for now. 02/03/2021eroquel increased to 100 mg p.o. every morning, 600 mg p.o. nightly. 02/04/2021.m. Seroquel increased to 200 mg p.o. every morning. Nightly Sero quel remains at 600 mg. Interval History Chief Complaint "I am upset about what happened last night, it is not my fault I was trying to talk to the girls". Review of Systems Sleep Information Total Hours of Sleep: 7.25 Sleep Comments: pt on q-15 minute cheks Meal Information Percent Meal Consumed - Breakfast: 100 Percent Meal Consumed - Lunch: 100 Percent Meal Consumed - Dinner: 100 Nutrition Comment: per meal record Subjective Subjective Patient was seen & assessed and interval progress reviewed with treatment team nursing and social work Patient had a difficult night last night and required IM medications. He slept most of the morning but when he aroused he was walking without issue. He continues to display manic-like symptoms including hypersexuality, grandiosity, and unable to take social cues from peers. He continues to be inappropriate with staff at times although states he would do his best to prevent himself from acting the way he did last night. Minimal insight regarding the situation and his role in the events. He did acknowledge that he was violent last night, and stated that he would not continue to do so for the remainder of his admission. Patient was encouraged to make his needs known with his words, and approach staff with his concerns. He is eating and sleeping well. No side effects observed from medications. Patient does complain of some leg soreness which he was told is to be expected following IM medication administration. I spent 30 minutes with the patient, 50% of which was dedicated to counselling and coordination of care. Physical Exam Psychiatric Orientation: alert Apperance: appropriately dressed Eye Contact: good eye contact Speech: + pressured speech Affect: + elated affect Mood: + anxious mood Thought Process: + tangential thought process and + flight of ideas Thought Content: + preoccupation, + delusions and + ideas of reference Suicidal Thoughts: denies suicidal thoughts Homicidal Thoughts: denies homicidal thoughts Hallucinations: no auditory hallucinations Cognition: recent memory grossly intact Estimated Intelligence: average estimated intelligence Insight: + limited insight Judgement: + poor judgement Vital Signs (Past 24 Hours) Last Vital Signs Temp 36.5 C 02/03/21 06:37 Pulse 114 H 02/03/21 06:38 Resp 18 02/03/21 06:37 BP 112/86 02/03/21 06:38 Pulse Ox 97 01/30/21 19:19 Results & Data ([facility]) Current Inpatient Medications Current Inpatient Medications: Current Inpatient Medications Acetaminophen (Acetaminophen 325 Mg Tab) 650 mg PO Q4H PRN PRN Reason: Headache or Minor Fever Stop: 03/01/21 16:29 Last Admin: 02/02/21 19:21 Dose: 650 mg Documented by: Al Hydrox/Mg Hydrox/Simethicone (Aluminum/Magnesium Susp 30 Ml Udc) 30 ml PO Q4H PRN PRN Reason: GI Upset Stop: 03/01/21 16:29 Last Admin: 02/01/21 06:53 Dose: 30 ml Documented by: Amlodipine Besylate (Amlodipine Besylate 5 Mg Tab) 10 mg PO QAM [facility] Stop: 03/01/21 18:09 Last Admin: 02/04/21 08:41 Dose: 10 mg Documented by: Benztropine Mesylate (Benztropine Mesylate 1 Mg Tab) 1 mg PO Q6 PRN PRN Reason: EPS Stop: 03/01/21 17:55 Last Admin: 01/31/21 07:53 Dose: 1 mg Documented by: Benztropine Mesylate (Benztropine Mesylate 1 Mg/Ml 2 Ml Amp) 1 mg IM Q6 PRN PRN Reason: Agitation Stop: 03/01/21 18:05 Bismuth Subsalicylate (Bismuth Subsalicylate Liqd 236 Ml) 15 ml PO PRN PRN PRN Reason: Loose Stool Stop: 03/01/21 16:29 Diphenhydramine HCl (Diphenhydramine 50 Mg/Ml Vial) 100 mg IM Q6 PRN PRN Reason: Allergic Reaction Stop: 03/05/21 22:31 Gabapentin (Gabapentin 400 Mg Cap) 400 mg PO QAM [facility] Stop: 03/02/21 08:59 Last Admin: 02/04/21 08:41 Dose: 400 mg Documented by: Haloperidol (Haloperidol 5 Mg Tab) 5 mg PO Q6 PRN PRN Reason: agitation Stop: 03/06/21 08:49 Haloperidol Lactate (Haloperidol Lactate 5 Mg/Ml 1 Ml Vial) 5 mg IM Q6 PRN PRN Reason: Agitation Stop: 03/01/21 18:17 Hydroxyzine HCl (Hydroxyzine Hcl 25 Mg Tab) 50 mg PO HSZ PRN PRN Reason: Insomnia Stop: 03/01/21 16:29 Hydroxyzine HCl (Hydroxyzine Hcl 25 Mg Tab) 25 mg PO Q4H PRN PRN Reason: Anxiety Stop: 03/01/21 16:29 Lisinopril (Lisinopril 40 Mg Tab) 40 mg PO QAM [facility] Stop: 03/02/21 08:59 Last Admin: 02/04/21 08:41 Dose: 40 mg Documented by: [place] Carbonate ([place] Carbonate 300 Mg Tab) 450 mg PO BID [facility] Stop: 03/04/21 09:14 Last Admin: 02/04/21 08:42 Dose: 450 mg Documented by: Lorazepam (Lorazepam 2 Mg/Ml Vial (Im Use)) 2 mg IM Q6 PRN PRN Reason: Agitation Stop: 03/01/21 18:05 Last Admin: 02/03/21 21:20 Dose: 2 mg Documented by: Lorazepam (Lorazepam 1 Mg Tab) 2 mg PO Q4 PRN PRN Reason: Anxiety/Agitation Stop: 03/01/21 18:14 Last Admin: 02/01/21 17:33 Dose: 2 mg Documented by: Magnesium Hydroxide (Magnesium Hydroxide Susp 30 Ml Udc) 30 ml PO DAILY PRN PRN Reason: Constipation Stop: 03/01/21 16:29 Miscellaneous (Remove Nicoderm Patch) 1 ea N/A DAILY@0859 [facility] Stop: 03/03/21 08:58 Last Admin: 02/04/21 08:52 Dose: Not Given Documented by: Nicotine Polacrilex (Nicotine Polacrilex 2 Mg Gum) 1 piece MT Q2HWA PRN PRN Reason: smoking Stop: 03/03/21 10:16 Last Admin: 02/04/21 14:18 Dose: 1 piece Documented by: Pantoprazole Sodium (Pantoprazole 40 Mg Tab) 40 mg PO BID [facility] Stop: 03/01/21 20:59 Last Admin: 02/04/21 08:42 Dose: 40 mg Documented by: Quetiapine Fumarate (Quetiapine Fumarate 100 Mg Tablet) 100 mg PO Q8 PRN PRN Reason: Anxiety/Agitation Stop: 03/01/21 18:10 Last Admin: 02/01/21 12:07 Dose: 100 mg Documented by: Quetiapine Fumarate (Quetiapine Fumarate 300 Mg Tablet) 600 mg PO HS [facility] Stop: 03/03/21 21:59 Last Admin: 02/03/21 20:51 Dose: 600 mg Documented by: Quetiapine Fumarate (Quetiapine Fumarate 200 Mg Tab) 200 mg PO QAM [facility] Stop: 03/06/21 08:59 Last Admin: 02/04/21 08:42 Dose: 200 mg Documented by: Sodium Chloride (Sodium Chloride 0.65% Na Soln 45 Ml ([place])) 1 - 2 sprays NA PRN PRN PRN Reason: Nasal Dryness/Congestion Stop: 03/01/21 16:29 Tramadol HCl (Tramadol Hcl 50 Mg Tablet) 100 mg PO BID PRN PRN Reason: Pain Stop: 03/03/21 10:18 Last Admin: 02/03/21 06:54 Dose: 100 mg Documented by: Mental Health & Subst Abuse Tx Psychiatrist Name of Psychiatrist: [facility] - Dr. Christianson Psychiatrist's Date of Appointment with Psychiatrist: 03/04/21 Time of Appointment with Psychiatrist: 10:10 a.m. Psychiatric Appointment Comment: Telehealth - on the cancellation list for an earlier appt Post Discharge Appointments Primary Care Physician Name Of Family Doctor: Zahida Coffman Primary [facility] Contact Information Discharge Discharge Address: [facility] [place] [address]
[2021-02-04] MEDS: QUEtiapine FUMARATE 300 MG TABLET PO SCH (21:12)
[2021-02-04] MEDS: hydrOXYzine HCl 25 MG TAB PO PRN (23:48)
[2021-02-05] MEDS: traMADol HCL 50 MG TABLET PO PRN ×2 (06:30→19:18)
[2021-02-05] MEDS: LITHIUM CARBONATE 300 MG TAB PO SCH ×2 (08:19→21:05)
[2021-02-05] MEDS: amLODIPine BESYLATE 5 MG TAB PO SCH (08:19)
[2021-02-05] MEDS: lisinopril 40 MG TAB PO SCH (08:19)
[2021-02-05] MEDS: GABAPENTIN 400 MG CAP PO SCH (08:19)
[2021-02-05] MEDS: PANTOprazole 40 MG TAB PO SCH ×2 (08:20→21:05)
[2021-02-05] MEDS: QUEtiapine FUMARATE 200 MG TAB PO SCH (08:20)
[2021-02-05] MEDS: NICOTINE POLACRILEX 2 MG GUM MT PRN ×3 (09:48→19:19)
[2021-02-05] MEDS: ACETAMINOPHEN 325 MG TAB PO PRN (11:52)
[2021-02-05] MEDS: LORazepam 1 MG TAB PO PRN (12:17)
--- NOTE | 2021-02-05 12:40 | Psychiatric Progress Note ---
Date of Service February 05, 2021 Impression / Recommendations Impression This is a 55-year-old male with bipolar disorder currently in a manic episode. Patient is being stabilized on lithium as well as second-generation antipsychotics.Patient making incremental progress (1) Vikash: (2) Bipolar 1 disorder: The patient was admitted to the [facility] ([facility] health unit) on every 15 minute checks (behavioral with suicide precautions for safety. The patient will participate in group, recreational, and milieu therapies and will be offered additional individual and family sessions as clinically appropriate. 01/31/2021ontinue current medication regimen consisting 750 mg of lithium daily, Seroquel increased to 500 mg nightly. 02/01/2021We will plan to draw lithium level tomorrow. We will also plan to interspace patient's lithium to more evenly distributed medication regimen. We will increase Seroquel to 600 mg nightly 02/02/2021ithium level low, will increase dose to 450 mg p.o. twice daily. Will leave Seroquel dose at 600 mg p.o. nightly for now. 02/03/2021eroquel increased to 100 mg p.o. every morning, 600 mg p.o. nightly. 02/04/2021.m. Seroquel increased to 200 mg p.o. every morning. Nightly Sero quel remains at 600 mg. 02/05/2021ithium increased to 600 mg p.o. twice daily Interval History Chief Complaint "You guys should be paying me because I am helping all the patients so much". Review of Systems Sleep Information Total Hours of Sleep: 4.5 Sleep Comments: pt on q-15 minute cheks Meal Information Percent Meal Consumed - Breakfast: 100 Percent Meal Consumed - Lunch: 100 Percent Meal Consumed - Dinner: 100 Nutrition Comment: per meal record Subjective Subjective Patient was seen & assessed and interval progress reviewed with treatment team nursing and social work Patient remains manic, disorganized, difficult to redirect at times, hyperverbal, hypersexual. He is compliant with medication, and today was offered an additional dose of Haldol and Ativan due to his displays of vikash. Patient was also informed that his lithium dose will be increased to 600 mg p.o. twice daily. Patient is seen eating well and sleeping well with use of medication. I spent 30 minutes with the patient, 50% of which was dedicated to counselling and coordination of care. Physical Exam Psychiatric Orientation: alert Apperance: appropriately dressed Eye Contact: good eye contact Speech: + pressured speech Affect: + elated affect Mood: + anxious mood Thought Process: + tangential thought process and + flight of ideas Thought Content: + preoccupation, + delusions and + ideas of reference Suicidal Thoughts: denies suicidal thoughts Homicidal Thoughts: denies homicidal thoughts Hallucinations: no auditory hallucinations Cognition: recent memory grossly intact Estimated Intelligence: average estimated intelligence Insight: + limited insight Judgement: + poor judgement Vital Signs (Past 24 Hours) Last Vital Signs Temp 36.7 C 02/05/21 06:37 Pulse 106 H 02/05/21 06:37 Resp 18 02/05/21 06:37 BP 131/80 02/05/21 06:37 Pulse Ox 97 01/30/21 19:19 Results & Data ([facility]) Current Inpatient Medications Current Inpatient Medications: Current Inpatient Medications Acetaminophen (Acetaminophen 325 Mg Tab) 650 mg PO Q4H PRN PRN Reason: Headache or Minor Fever Stop: 03/01/21 16:29 Last Admin: 02/05/21 11:52 Dose: 650 mg Documented by: Al Hydrox/Mg Hydrox/Simethicone (Aluminum/Magnesium Susp 30 Ml Udc) 30 ml PO Q4H PRN PRN Reason: GI Upset Stop: 03/01/21 16:29 Last Admin: 02/01/21 06:53 Dose: 30 ml Documented by: Amlodipine Besylate (Amlodipine Besylate 5 Mg Tab) 10 mg PO QAM [facility] Stop: 03/01/21 18:09 Last Admin: 02/05/21 08:19 Dose: 10 mg Documented by: Benztropine Mesylate (Benztropine Mesylate 1 Mg Tab) 1 mg PO Q6 PRN PRN Reason: EPS Stop: 03/01/21 17:55 Last Admin: 01/31/21 07:53 Dose: 1 mg Documented by: Benztropine Mesylate (Benztropine Mesylate 1 Mg/Ml 2 Ml Amp) 1 mg IM Q6 PRN PRN Reason: Agitation Stop: 03/01/21 18:05 Bismuth Subsalicylate (Bismuth Subsalicylate Liqd 236 Ml) 15 ml PO PRN PRN PRN Reason: Loose Stool Stop: 03/01/21 16:29 Diphenhydramine HCl (Diphenhydramine 50 Mg/Ml Vial) 100 mg IM Q6 PRN PRN Reason: Allergic Reaction Stop: 03/05/21 22:31 Gabapentin (Gabapentin 400 Mg Cap) 400 mg PO QAM [facility] Stop: 03/02/21 08:59 Last Admin: 02/05/21 08:19 Dose: 400 mg Documented by: Haloperidol (Haloperidol 5 Mg Tab) 5 mg PO Q6 PRN PRN Reason: agitation Stop: 03/06/21 08:49 Last Admin: 02/05/21 12:17 Dose: 5 mg Documented by: Haloperidol Lactate (Haloperidol Lactate 5 Mg/Ml 1 Ml Vial) 5 mg IM Q6 PRN PRN Reason: Agitation Stop: 03/01/21 18:17 Hydroxyzine HCl (Hydroxyzine Hcl 25 Mg Tab) 50 mg PO HSZ PRN PRN Reason: Insomnia Stop: 03/01/21 16:29 Last Admin: 02/04/21 23:48 Dose: 50 mg Documented by: Hydroxyzine HCl (Hydroxyzine Hcl 25 Mg Tab) 25 mg PO Q4H PRN PRN Reason: Anxiety Stop: 03/01/21 16:29 Lisinopril (Lisinopril 40 Mg Tab) 40 mg PO QAM [facility] Stop: 03/02/21 08:59 Last Admin: 02/05/21 08:19 Dose: 40 mg Documented by: [place] Carbonate ([place] Carbonate 300 Mg Tab) 600 mg PO BID [facility] Stop: 03/07/21 20:59 Lorazepam (Lorazepam 2 Mg/Ml Vial (Im Use)) 2 mg IM Q6 PRN PRN Reason: Agitation Stop: 03/01/21 18:05 Last Admin: 02/03/21 21:20 Dose: 2 mg Documented by: Lorazepam (Lorazepam 1 Mg Tab) 2 mg PO Q4 PRN PRN Reason: Anxiety/Agitation Stop: 03/01/21 18:14 Last Admin: 02/05/21 12:17 Dose: 2 mg Documented by: Magnesium Hydroxide (Magnesium Hydroxide Susp 30 Ml Udc) 30 ml PO DAILY PRN PRN Reason: Constipation Stop: 03/01/21 16:29 Nicotine Polacrilex (Nicotine Polacrilex 2 Mg Gum) 1 piece MT Q2HWA PRN PRN Reason: smoking Stop: 03/03/21 10:16 Last Admin: 02/05/21 09:48 Dose: 1 piece Documented by: Pantoprazole Sodium (Pantoprazole 40 Mg Tab) 40 mg PO BID [facility] Stop: 03/01/21 20:59 Last Admin: 02/05/21 08:20 Dose: 40 mg Documented by: Quetiapine Fumarate (Quetiapine Fumarate 100 Mg Tablet) 100 mg PO Q8 PRN PRN Reason: Anxiety/Agitation Stop: 03/01/21 18:10 Last Admin: 02/01/21 12:07 Dose: 100 mg Documented by: Quetiapine Fumarate (Quetiapine Fumarate 300 Mg Tablet) 600 mg PO HS [facility] Stop: 03/03/21 21:59 Last Admin: 02/04/21 21:12 Dose: 600 mg Documented by: Quetiapine Fumarate (Quetiapine Fumarate 200 Mg Tab) 200 mg PO QAM [facility] Stop: 03/06/21 08:59 Last Admin: 02/05/21 08:20 Dose: 200 mg Documented by: Sodium Chloride (Sodium Chloride 0.65% Na Soln 45 Ml ([place])) 1 - 2 sprays NA PRN PRN PRN Reason: Nasal Dryness/Congestion Stop: 03/01/21 16:29 Tramadol HCl (Tramadol Hcl 50 Mg Tablet) 100 mg PO BID PRN PRN Reason: Pain Stop: 03/03/21 10:18 Last Admin: 02/05/21 06:30 Dose: 100 mg Documented by: Mental Health & Subst Abuse Tx Psychiatrist Name of Psychiatrist: [facility] - Dr. Christianson Psychiatrist's Date of Appointment with Psychiatrist: 03/04/21 Time of Appointment with Psychiatrist: 10:10 a.m. Psychiatric Appointment Comment: Telehealth - on the cancellation list for an earlier appt Post Discharge Appointments Primary Care Physician Name Of Family Doctor: Zahida Coffman Primary Care Contact Information Discharge Discharge Address: [facility] [place] [address]
[2021-02-05] MEDS: QUEtiapine FUMARATE 300 MG TABLET PO SCH (21:05)
[2021-02-06] MEDS: QUEtiapine FUMARATE 200 MG TAB PO SCH (08:20)
[2021-02-06] MEDS: PANTOprazole 40 MG TAB PO SCH ×2 (08:20→21:05)
[2021-02-06] MEDS: amLODIPine BESYLATE 5 MG TAB PO SCH (08:21)
[2021-02-06] MEDS: LITHIUM CARBONATE 300 MG TAB PO SCH ×2 (08:21→21:06)
[2021-02-06] MEDS: GABAPENTIN 400 MG CAP PO SCH (08:21)
[2021-02-06] MEDS: lisinopril 40 MG TAB PO SCH (08:22)
[2021-02-06] MEDS: traMADol HCL 50 MG TABLET PO PRN (09:49)
[2021-02-06] MEDS: LORazepam 1 MG TAB PO PRN (09:50)
[2021-02-06] MEDS: ACETAMINOPHEN 325 MG TAB PO PRN (14:49)
[2021-02-06] MEDS: NICOTINE POLACRILEX 2 MG GUM MT PRN ×3 (14:50→20:33)
--- NOTE | 2021-02-06 14:53 | Psychiatric Progress Note ---
Date of Service February 06, 2021 Impression / Recommendations Impression This is a 55-year-old male with bipolar disorder currently in a manic episode. Patient is being stabilized on lithium as well as second-generation antipsychotics.Patient making incremental progress (1) Shi: (2) Bipolar 1 disorder: The patient was admitted to the [facility] ([facility]) on every 15 minute checks (behavioral with suicide precautions for safety. The patient will participate in group, recreational, and milieu therapies and will be offered additional individual and family sessions as clinically appropriate. 01/31/2021ontinue current medication regimen consisting 750 mg of lithium daily, Seroquel increased to 500 mg nightly. 02/01/2021We will plan to draw lithium level tomorrow. We will also plan to interspace patient's lithium to more evenly distributed medication regimen. We will increase Seroquel to 600 mg nightly 02/02/2021ithium level low, will increase dose to 450 mg p.o. twice daily. Will leave Seroquel dose at 600 mg p.o. nightly for now. 02/03/2021eroquel increased to 100 mg p.o. every morning, 600 mg p.o. nightly. 02/04/2021.m. Seroquel increased to 200 mg p.o. every morning. Nightly Sero quel remains at 600 mg. 02/05/2021ithium increased to 600 mg p.o. twice daily 02/06/2021we will continue current regimen, patient making slow progress although seems to have more insight into his illness as the days go on Interval History Chief Complaint "I'm not manic its just me". Review of Systems Sleep Information Total Hours of Sleep: 6.5 Sleep Comments: pt on q-15 minute cheks Meal Information Percent Meal Consumed - Breakfast: 100 Percent Meal Consumed - Lunch: 100 Percent Meal Consumed - Dinner: 100 Nutrition Comment: per meal record Subjective Subjective Patient was seen & assessed and interval progress reviewed with treatment team nursing and social work Patient remains pressured and hyperverbal. He is however starting to be little bit more appropriate with peers and easier to redirect. Does have moments where he acts out behaviorally and displays disordered thinking. Agreeable with the plan to continue to titrate medications. Seen eating and sleeping well. I spent 30 minutes with the patient, 50% of which was dedicated to counselling and coordination of care. Physical Exam Psychiatric Orientation: alert Apperance: appropriately dressed Eye Contact: good eye contact Speech: + pressured speech Affect: + elated affect Mood: + anxious mood Thought Process: + tangential thought process and + flight of ideas Thought Content: + preoccupation, + delusions and + ideas of reference Suicidal Thoughts: denies suicidal thoughts Homicidal Thoughts: denies homicidal thoughts Hallucinations: no auditory hallucinations Cognition: recent memory grossly intact Estimated Intelligence: average estimated intelligence Insight: + limited insight Judgement: + poor judgement Vital Signs (Past 24 Hours) Last Vital Signs Temp 36.6 C 02/06/21 07:17 Pulse 109 H 02/06/21 07:17 Resp 18 02/06/21 07:17 BP 142/82 H 02/06/21 07:17 Pulse Ox 97 01/30/21 19:19 Results & Data (U) Current Inpatient Medications Current Inpatient Medications: Current Inpatient Medications Acetaminophen (Acetaminophen 325 Mg Tab) 650 mg PO Q4H PRN PRN Reason: Headache or Minor Fever Stop: 03/01/21 16:29 Last Admin: 02/05/21 11:52 Dose: 650 mg Documented by: Al Hydrox/Mg Hydrox/Simethicone (Aluminum/Magnesium Susp 30 Ml Udc) 30 ml PO Q4H PRN PRN Reason: GI Upset Stop: 03/01/21 16:29 Last Admin: 02/01/21 06:53 Dose: 30 ml Documented by: Amlodipine Besylate (Amlodipine Besylate 5 Mg Tab) 10 mg PO QAM [facility] Stop: 03/01/21 18:09 Last Admin: 02/06/21 08:21 Dose: 10 mg Documented by: Benztropine Mesylate (Benztropine Mesylate 1 Mg Tab) 1 mg PO Q6 PRN PRN Reason: EPS Stop: 03/01/21 17:55 Last Admin: 01/31/21 07:53 Dose: 1 mg Documented by: Benztropine Mesylate (Benztropine Mesylate 1 Mg/Ml 2 Ml Amp) 1 mg IM Q6 PRN PRN Reason: Agitation Stop: 03/01/21 18:05 Bismuth Subsalicylate (Bismuth Subsalicylate Liqd 236 Ml) 15 ml PO PRN PRN PRN Reason: Loose Stool Stop: 03/01/21 16:29 Diphenhydramine HCl (Diphenhydramine 50 Mg/Ml Vial) 100 mg IM Q6 PRN PRN Reason: Allergic Reaction Stop: 03/05/21 22:31 Gabapentin (Gabapentin 400 Mg Cap) 400 mg PO QAM [facility] Stop: 03/02/21 08:59 Last Admin: 02/06/21 08:21 Dose: 400 mg Documented by: Haloperidol (Haloperidol 5 Mg Tab) 5 mg PO Q6 PRN PRN Reason: agitation Stop: 03/06/21 08:49 Last Admin: 02/05/21 12:17 Dose: 5 mg Documented by: Haloperidol Lactate (Haloperidol Lactate 5 Mg/Ml 1 Ml Vial) 5 mg IM Q6 PRN PRN Reason: Agitation Stop: 03/01/21 18:17 Hydroxyzine HCl (Hydroxyzine Hcl 25 Mg Tab) 50 mg PO HSZ PRN PRN Reason: Insomnia Stop: 03/01/21 16:29 Last Admin: 02/04/21 23:48 Dose: 50 mg Documented by: Hydroxyzine HCl (Hydroxyzine Hcl 25 Mg Tab) 25 mg PO Q4H PRN PRN Reason: Anxiety Stop: 03/01/21 16:29 Lisinopril (Lisinopril 40 Mg Tab) [facility] [place] Stop: 03/02/21 08:59 Last Admin: 02/06/21 08:22 Dose: 40 mg Documented by: [place] Carbonate ([place] Carbonate 300 Mg Tab) 600 mg PO BID [facility] Stop: 03/07/21 20:59 Last Admin: 02/06/21 08:21 Dose: 600 mg Documented by: Lorazepam (Lorazepam 2 Mg/Ml Vial (Im Use)) 2 mg IM Q6 PRN PRN Reason: Agitation Stop: 03/01/21 18:05 Last Admin: 02/03/21 21:20 Dose: 2 mg Documented by: Lorazepam (Lorazepam 1 Mg Tab) 2 mg PO Q4 PRN PRN Reason: Anxiety/Agitation Stop: 03/01/21 18:14 Last Admin: 02/06/21 09:50 Dose: 2 mg Documented by: Magnesium Hydroxide (Magnesium Hydroxide Susp 30 Ml Udc) 30 ml PO DAILY PRN PRN Reason: Constipation Stop: 03/01/21 16:29 Nicotine Polacrilex (Nicotine Polacrilex 2 Mg Gum) 1 piece MT Q2HWA PRN PRN Reason: smoking Stop: 03/03/21 10:16 Last Admin: 02/05/21 19:19 Dose: 1 piece Documented by: Pantoprazole Sodium (Pantoprazole 40 Mg Tab) 40 mg PO BID [facility] Stop: 03/01/21 20:59 Last Admin: 02/06/21 08:20 Dose: 40 mg Documented by: Quetiapine Fumarate (Quetiapine Fumarate 100 Mg Tablet) 100 mg PO Q8 PRN PRN Reason: Anxiety/Agitation Stop: 03/01/21 18:10 Last Admin: 02/01/21 12:07 Dose: 100 mg Documented by: Quetiapine Fumarate (Quetiapine Fumarate 300 Mg Tablet) 600 mg PO HS [facility] Stop: 03/03/21 21:59 Last Admin: 02/05/21 21:05 Dose: 600 mg Documented by: Quetiapine Fumarate (Quetiapine Fumarate 200 Mg Tab) 200 mg PO QAM [facility] Stop: 03/06/21 08:59 Last Admin: 02/06/21 08:20 Dose: 200 mg Documented by: Sodium Chloride (Sodium Chloride 0.65% Na Soln 45 Ml ([place])) 1 - 2 sprays NA PRN PRN PRN Reason: Nasal Dryness/Congestion Stop: 03/01/21 16:29 Tramadol HCl (Tramadol Hcl 50 Mg Tablet) 100 mg PO BID PRN PRN Reason: Pain Stop: 03/03/21 10:18 Last Admin: 02/06/21 09:49 Dose: 100 mg Documented by: Mental Health & Subst Abuse Tx Psychiatrist Name of Psychiatrist: [facility] Psychiatrist's Date of Appointment with Psychiatrist: 03/04/21 Time of Appointment with Psychiatrist: 10:10 a.m. Psychiatric Appointment Comment: Telehealth - on the cancellation list for an earlier appt Post Discharge Appointments Primary Care Physician Name Of Family Doctor: Zahida Coffman Primary Care Contact Information Discharge Discharge Address: [address] [place] [address] [facility]
[2021-02-06] MEDS: QUEtiapine FUMARATE 300 MG TABLET PO SCH (21:05)
[2021-02-07] MEDS: traMADol HCL 50 MG TABLET PO PRN ×2 (06:09→20:49)
[2021-02-07] MEDS: LITHIUM CARBONATE 300 MG TAB PO SCH ×2 (08:33→21:24)
[2021-02-07] MEDS: GABAPENTIN 400 MG CAP PO SCH (08:33)
[2021-02-07] MEDS: lisinopril 40 MG TAB PO SCH (08:33)
[2021-02-07] MEDS: amLODIPine BESYLATE 5 MG TAB PO SCH (08:33)
[2021-02-07] MEDS: PANTOprazole 40 MG TAB PO SCH ×2 (08:33→21:24)
[2021-02-07] MEDS: QUEtiapine FUMARATE 200 MG TAB PO SCH (08:34)
[2021-02-07] MEDS: ACETAMINOPHEN 325 MG TAB PO PRN ×2 (08:35→16:57)
[2021-02-07] MEDS ORDERED: DIVALPROEX DELAY RELEASE 250 MG TABEC PO SCH (10:15)
--- NOTE | 2021-02-07 12:25 | Psychiatric Progress Note ---
Date of Service February 07, 2021 Impression / Recommendations Impression This is a 55-year-old male with bipolar disorder currently in a manic episode. Patient is being stabilized on lithium as well as second-generation antipsychotics.Patient making incremental progress (1) Vikash: (2) Bipolar 1 disorder: The patient was admitted to the [facility] ([facility] unit) on every 15 minute checks (behavioral with suicide precautions for safety. The patient will participate in group, recreational, and milieu therapies and will be offered additional individual and family sessions as clinically appropriate. 01/31/2021ontinue current medication regimen consisting 750 mg of lithium daily, Seroquel increased to 500 mg nightly. 02/01/2021We will plan to draw lithium level tomorrow. We will also plan to interspace patient's lithium to more evenly distributed medication regimen. We will increase Seroquel to 600 mg nightly 02/02/2021ithium level low, will increase dose to 450 mg p.o. twice daily. Will leave Seroquel dose at 600 mg p.o. nightly for now. 02/03/2021eroquel increased to 100 mg p.o. every morning, 600 mg p.o. nightly. 02/04/2021.m. Seroquel increased to 200 mg p.o. every morning. Nightly Sero quel remains at 600 mg. 02/05/2021ithium increased to 600 mg p.o. twice daily 02/06/2021we will continue current regimen, patient making slow progress although seems to have more insight into his illness as the days go on 02/07/2021atient continues to do better at times but does have occasional outbursts. Will discontinue Seroquel in favor of Zyprexa. Will discontinue Seroquel tonight and start with 15 mg of Zyprexa nightly. Interval History Chief Complaint "Forget you, you asshole". Review of Systems Sleep Information Total Hours of Sleep: 7.75 Sleep Comments: pt on q-15 minute cheks Meal Information Percent Meal Consumed - Breakfast: 100 Percent Meal Consumed - Lunch: 100 Percent Meal Consumed - Dinner: 100 Nutrition Comment: per meal record Subjective Subjective Patient was seen & assessed and interval progress reviewed with treatment team nursing and social work Patient was spoken to about his length of stay and that he will be given back some of the privileges that were removed from him including ability to have a bed in his room and use normal utensils. Patient in agreement with this. However as the convert physician progressed, patient became more manic and disorganized, unwilling and unable to maintain a level of appropriateness during the conversation. He then stormed out of the room stating "do whatever you want" and was offering legal threats to provider. Patient was then offered Depakote medication which he adamantly refused, and further conversation was had about other treatment options. During this conversation patient was more apologetic, able to state that he would be willing to try some different medication options although is initially resistant to Depakote. It was discussed with the patient that since his current medication regimen is not providing enough stability that changes will have to be made. Together was agreed upon to substitute Zyprexa for Seroquel in hopes that it would be more efficacious in controlling his acute vikash. Patient in agreement at this time. He continues to eat and sleep and make his needs known I spent 45 minutes with the patient, 50% of which was dedicated to counselling and coordination of care. Physical Exam Psychiatric Orientation: alert Apperance: appropriately dressed Eye Contact: good eye contact Speech: + pressured speech Affect: + elated affect Mood: + anxious mood Thought Process: + tangential thought process and + flight of ideas Thought Content: + preoccupation, + delusions and + ideas of reference Suicidal Thoughts: denies suicidal thoughts Homicidal Thoughts: denies homicidal thoughts Hallucinations: no auditory hallucinations Cognition: recent memory grossly intact Estimated Intelligence: average estimated intelligence Insight: + limited insight Judgement: + poor judgement Vital Signs (Past 24 Hours) Last Vital Signs Temp 36.8 C 02/07/21 06:57 Pulse 111 H 02/07/21 06:57 Resp 18 02/07/21 06:57 BP 126/85 02/07/21 06:57 Pulse Ox 97 01/30/21 19:19 Results & Data (U) Current Inpatient Medications Current Inpatient Medications: Current Inpatient Medications Acetaminophen (Acetaminophen 325 Mg Tab) 650 mg PO Q4H PRN PRN Reason: Headache or Minor Fever Stop: 03/01/21 16:29 Last Admin: 02/07/21 08:35 Dose: 650 mg Documented by: Al Hydrox/Mg Hydrox/Simethicone (Aluminum/Magnesium Susp 30 Ml Udc) 30 ml PO Q4H PRN PRN Reason: GI Upset Stop: 03/01/21 16:29 Last Admin: 02/01/21 06:53 Dose: 30 ml Documented by: Amlodipine Besylate (Amlodipine Besylate 5 Mg Tab) 10 mg PO QAM [facility] Stop: 03/01/21 18:09 Last Admin: 02/07/21 08:33 Dose: 10 mg Documented by: Benztropine Mesylate (Benztropine Mesylate 1 Mg Tab) 1 mg PO Q6 PRN PRN Reason: EPS Stop: 03/01/21 17:55 Last Admin: 01/31/21 07:53 Dose: 1 mg Documented by: Benztropine Mesylate (Benztropine Mesylate 1 Mg/Ml 2 Ml Amp) 1 mg IM Q6 PRN PRN Reason: Agitation Stop: 03/01/21 18:05 Bismuth Subsalicylate (Bismuth Subsalicylate Liqd 236 Ml) 15 ml PO PRN PRN PRN Reason: Loose Stool Stop: 03/01/21 16:29 Diphenhydramine HCl (Diphenhydramine 50 Mg/Ml Vial) 100 mg IM Q6 PRN PRN Reason: Allergic Reaction Stop: 03/05/21 22:31 Diphenhydramine HCl (Diphenhydramine Capsule 25 Mg Cap) 50 mg PO HS [facility] Stop: 03/09/21 21:59 Gabapentin (Gabapentin 400 Mg Cap) 400 mg PO QAM [facility] Stop: 03/02/21 08:59 Last Admin: 02/07/21 08:33 Dose: 400 mg Documented by: Haloperidol (Haloperidol 5 Mg Tab) 5 mg PO Q6 PRN PRN Reason: agitation Stop: 03/06/21 08:49 Last Admin: 02/05/21 12:17 Dose: 5 mg Documented by: Haloperidol Lactate (Haloperidol Lactate 5 Mg/Ml 1 Ml Vial) 5 mg IM Q6 PRN PRN Reason: Agitation Stop: 03/01/21 18:17 Hydroxyzine HCl (Hydroxyzine Hcl 25 Mg Tab) 50 mg PO HSZ PRN PRN Reason: Insomnia Stop: 03/01/21 16:29 Last Admin: 02/04/21 23:48 Dose: 50 mg Documented by: Hydroxyzine HCl (Hydroxyzine Hcl 25 Mg Tab) 25 mg PO Q4H PRN PRN Reason: Anxiety Stop: 03/01/21 16:29 Lisinopril (Lisinopril 40 Mg Tab) 40 mg PO QAM [facility] Stop: 03/02/21 08:59 Last Admin: 02/07/21 08:33 Dose: 40 mg Documented by: [place] Carbonate ([place] Carbonate 300 Mg Tab) 600 mg PO BID [facility] Stop: 03/07/21 20:59 Last Admin: 02/07/21 08:33 Dose: 600 mg Documented by: Lorazepam (Lorazepam 2 Mg/Ml Vial (Im Use)) 2 mg IM Q6 PRN PRN Reason: Agitation Stop: 03/01/21 18:05 Last Admin: 02/03/21 21:20 Dose: 2 mg Documented by: Lorazepam (Lorazepam 1 Mg Tab) 2 mg PO Q4 PRN PRN Reason: Anxiety/Agitation Stop: 03/01/21 18:14 Last Admin: 02/06/21 09:50 Dose: 2 mg Documented by: Magnesium Hydroxide (Magnesium Hydroxide Susp 30 Ml Udc) 30 ml PO DAILY PRN PRN Reason: Constipation Stop: 03/01/21 16:29 Nicotine Polacrilex (Nicotine Polacrilex 2 Mg Gum) 1 piece MT Q2HWA PRN PRN Reason: smoking Stop: 03/03/21 10:16 Last Admin: 02/06/21 20:33 Dose: 1 piece Documented by: Olanzapine (Olanzapine 10 Mg Tab) 10 mg PO QAM [facility] Stop: 03/10/21 08:59 Olanzapine (Olanzapine 5 Mg Tablet) 15 mg PO HS [facility] Stop: 03/09/21 21:59 Pantoprazole Sodium (Pantoprazole 40 Mg Tab) 40 mg PO BID [facility] Stop: 03/01/21 20:59 Last Admin: 02/07/21 08:33 Dose: 40 mg Documented by: Sodium Chloride (Sodium Chloride 0.65% Na Soln 45 Ml ([place])) 1 - 2 sprays NA PRN PRN PRN Reason: Nasal Dryness/Congestion Stop: 03/01/21 16:29 Tramadol HCl (Tramadol Hcl 50 Mg Tablet) 100 mg PO BID PRN PRN Reason: Pain Stop: 03/03/21 10:18 Last Admin: 02/07/21 06:09 Dose: 100 mg Documented by: Mental Health & Subst Abuse Tx Psychiatrist Name of Psychiatrist: [facility] - Dr. Christianson Psychiatrist's Date of Appointment with Psychiatrist: 03/04/21 Time of Appointment with Psychiatrist: 10:10 a.m. Psychiatric Appointment Comment: Telehealth - on the cancellation list for an earlier appt Post Discharge Appointments Primary Care Physician Name Of Family Doctor: Zahida - Dr. Don Coffman Primary Care Contact Information Discharge Discharge Address: [address] [place] [address] [place] [address]
[2021-02-07] MEDS: NICOTINE POLACRILEX 2 MG GUM MT PRN ×2 (16:57→19:51)
[2021-02-07] MEDS: diphenhydrAMINE Capsule 25 MG CAP PO SCH (21:24)
[2021-02-07] MEDS: OLANZapine 5 MG TABLET PO SCH (21:25)
[2021-02-07] MEDS: hydrOXYzine HCl 25 MG TAB PO PRN (22:49)
[2021-02-08 09:16] LABS: Hematocrit (blood only) 43.4 % (42-52); Hemoglobin 14.4 g/dL (14.0-18.0); Mean Corpuscular Hemoglobin 28.6 pg (25-34); Mean Corpuscular Hgb Conc 33.2 g/dL (32-36); Mean Corpuscular Volume 86.1 fL (80-100); Mean Platelet Volume 8.9 fL (7.4-10.4); Platelet Count 349 K/uL (130-400); RDW Standard Deviation 41.3 fL (36.4-46.3); Red Blood Count 5.04 M/uL (4.7-6.1); White Blood Count 12.52 K/uL (4.8-10.8)
[2021-02-08 09:44] LABS: Alanine Aminotransferase 31 U/L (12-78); Albumin Level 3.6 gm/dl (3.4-5.0); Aspartate Aminotransferase 14 U/L (15-37); BUN Creatinine Ratio 16.3 (10-20); Bilirubin Direct < 0.1 mg/dl (0-0.2); Blood Urea Nitrogen 14 mg/dl (7-18); Calcium 9.6 mg/dl (8.5-10.1); Carbon Dioxide 25 mmol/L (21-32); Chloride 105 mmol/L (98-107); Creatinine Clr Calc Pharmacy 92.8 ml/min; Est GFR (African American) 112.9 ml/min; Est GFR (Non-African American) 97.4 ml/min; Glucose 95 mg/dl (70-99); Potassium 4.3 mmol/L (3.5-5.1); Sodium 135 mmol/L (136-145)
[2021-02-08 09:48] LABS: Alkaline Phosphatase 74 U/L (45-117); Bilirubin,Total 0.3 mg/dl (0.2-1); Globulin 3.5 gm/dl (2.5-4.0); Total Protein 7.1 gm/dl (6.4-8.2)
[2021-02-08] MEDS: amLODIPine BESYLATE 5 MG TAB PO SCH (10:02)
[2021-02-08] MEDS: lisinopril 40 MG TAB PO SCH (10:03)
[2021-02-08] MEDS: LITHIUM CARBONATE 300 MG TAB PO SCH ×2 (10:03→20:54)
[2021-02-08] MEDS: GABAPENTIN 400 MG CAP PO SCH (10:03)
[2021-02-08] MEDS: PANTOprazole 40 MG TAB PO SCH ×2 (10:04→20:54)
[2021-02-08] MEDS: OLANZapine 10 MG TAB PO SCH (10:04)
[2021-02-08] MEDS: NICOTINE POLACRILEX 2 MG GUM MT PRN (11:33)
--- NOTE | 2021-02-08 12:16 | Psychiatric Progress Note ---
Date of Service February 08, 2021 Impression / Recommendations Impression This is a 55-year-old male with bipolar disorder currently in a manic episode. Patient is being stabilized on lithium as well as second-generation antipsychotics.Patient making incremental progress (1) Shi: (2) Bipolar 1 disorder: The patient was admitted to the [facility] ([facility] unit) on every 15 minute checks (behavioral with suicide precautions for safety. The patient will participate in group, recreational, and milieu therapies and will be offered additional individual and family sessions as clinically appropriate. 01/31/2021ontinue current medication regimen consisting 750 mg of lithium daily, Seroquel increased to 500 mg nightly. 02/01/2021We will plan to draw lithium level tomorrow. We will also plan to interspace patient's lithium to more evenly distributed medication regimen. We will increase Seroquel to 600 mg nightly 02/02/2021ithium level low, will increase dose to 450 mg p.o. twice daily. Will leave Seroquel dose at 600 mg p.o. nightly for now. 02/03/2021eroquel increased to 100 mg p.o. every morning, 600 mg p.o. nightly. 02/04/2021.m. Seroquel increased to 200 mg p.o. every morning. Nightly Sero quel remains at 600 mg. 02/05/2021ithium increased to 600 mg p.o. twice daily 02/06/2021we will continue current regimen, patient making slow progress although seems to have more insight into his illness as the days go on 02/07/2021atient continues to do better at times but does have occasional outbursts. Will discontinue Seroquel in favor of Zyprexa. Will discontinue Seroquel tonight and start with 15 mg of Zyprexa nightly. 02/08/2021atient tolerating cross-taper to Zyprexa well. We will continue on current dose of Zyprexa and lithium for now. Interval History Chief Complaint "How am I doing today? Do you think I could still be discharged this week?". Review of Systems Sleep Information Total Hours of Sleep: 6 Sleep Comments: pt on q-15 minute cheks Meal Information Percent Meal Consumed - Breakfast: 100 Percent Meal Consumed - Lunch: 100 Percent Meal Consumed - Dinner: 100 Nutrition Comment: per meal record Subjective Subjective Patient was seen & assessed and interval progress reviewed with treatment team nursing and social work Patient was switched over from Seroquel to Zyprexa last night after Seroquel was unable to hold his symptoms. Patient reports feeling better on dose of Seroquel, stated that he slept well without issue. Patient continues to be talkative, although last inappropriate and less grandiose than previously. Speech is hyperverbal, not pressured. Laboratory results are within normal limits. [place] level came back at 0.6. Patient denies any adverse effects of medications. Reports feeling improved on selected regimen. I spent 30 minutes with the patient, 50% of which was dedicated to counselling and coordination of care. Physical Exam Psychiatric Orientation: alert Apperance: appropriately dressed Eye Contact: good eye contact Speech: + pressured speech Affect: + elated affect Mood: + anxious mood Thought Process: + tangential thought process and + flight of ideas Thought Content: + preoccupation, + delusions and + ideas of reference Suicidal Thoughts: denies suicidal thoughts Homicidal Thoughts: denies homicidal thoughts Hallucinations: no auditory hallucinations Cognition: recent memory grossly intact Estimated Intelligence: average estimated intelligence Insight: + limited insight Judgement: + poor judgement Vital Signs (Past 24 Hours) Last Vital Signs Temp 36.7 C 02/08/21 06:54 Pulse 91 H 02/08/21 06:54 Resp 18 02/08/21 06:54 BP 129/82 02/08/21 06:54 Pulse Ox 97 01/30/21 19:19 Results & Data ([facility]) Laboratory Results Laboratory Results - last 24 hr 02/08/21 02/08/21 02/08/21 08:52 08:52 08:52 WBC 12.52 H RBC 5.04 Hgb 14.4 Hct 43.4 MCV 86.1 MCH 28.6 MCHC 33.2 RDW Std Deviation 41.3 RDW Coeff of Dmitry 13.0 Plt Count 349 MPV 8.9 Sodium 135 L Potassium 4.3 Chloride 105 Carbon Dioxide 25 Anion Gap 6.0 BUN 14 Creatinine 0.88 Est Cr Clr Drug Dosing 92.8 Est GFR ( Amer) 112.9 Est GFR (Non-Af Amer) 97.4 BUN/Creatinine Ratio 16.3 Glucose 95 Calcium 9.6 Total Bilirubin 0.3 Direct Bilirubin < 0.1 AST 14 L ALT 31 Alkaline Phosphatase 74 Total Protein 7.1 Albumin 3.6 Globulin 3.5 Albumin/Globulin Ratio 1.0 [place] 0.6 Current Inpatient Medications Current Inpatient Medications: Current Inpatient Medications Acetaminophen (Acetaminophen 325 Mg Tab) 650 mg PO Q4H PRN PRN Reason: Headache or Minor Fever Stop: 03/01/21 16:29 Last Admin: 02/07/21 16:57 Dose: 650 mg Documented by: Al Hydrox/Mg Hydrox/Simethicone (Aluminum/Magnesium Susp 30 Ml Udc) 30 ml PO Q4H PRN PRN Reason: GI Upset Stop: 03/01/21 16:29 Last Admin: 02/01/21 06:53 Dose: 30 ml Documented by: Amlodipine Besylate (Amlodipine Besylate 5 Mg Tab) 10 mg PO QAM [facility] Stop: 03/01/21 18:09 Last Admin: 02/08/21 10:02 Dose: 10 mg Documented by: Benztropine Mesylate (Benztropine Mesylate 1 Mg Tab) 1 mg PO Q6 PRN PRN Reason: EPS Stop: 03/01/21 17:55 Last Admin: 01/31/21 07:53 Dose: 1 mg Documented by: Benztropine Mesylate (Benztropine Mesylate 1 Mg/Ml 2 Ml Amp) 1 mg IM Q6 PRN PRN Reason: Agitation Stop: 03/01/21 18:05 Bismuth Subsalicylate (Bismuth Subsalicylate Liqd 236 Ml) 15 ml PO PRN PRN PRN Reason: Loose Stool Stop: 03/01/21 16:29 Diphenhydramine HCl (Diphenhydramine 50 Mg/Ml Vial) 100 mg IM Q6 PRN PRN Reason: Allergic Reaction Stop: 03/05/21 22:31 Diphenhydramine HCl (Diphenhydramine Capsule 25 Mg Cap) 50 mg PO [facility] Stop: 03/09/21 21:59 Last Admin: 02/07/21 21:24 Dose: 50 mg Documented by: Gabapentin (Gabapentin 400 Mg Cap) 400 mg PO QAM [facility] Stop: 03/02/21 08:59 Last Admin: 02/08/21 10:03 Dose: 400 mg Documented by: Haloperidol (Haloperidol 5 Mg Tab) 5 mg PO Q6 PRN PRN Reason: agitation Stop: 03/06/21 08:49 Last Admin: 02/05/21 12:17 Dose: 5 mg Documented by: Haloperidol Lactate (Haloperidol Lactate 5 Mg/Ml 1 Ml Vial) 5 mg IM Q6 PRN PRN Reason: Agitation Stop: 03/01/21 18:17 Hydroxyzine HCl (Hydroxyzine Hcl 25 Mg Tab) 50 mg PO HSZ PRN PRN Reason: Insomnia Stop: 03/01/21 16:29 Last Admin: 02/07/21 22:49 Dose: 50 mg Documented by: Hydroxyzine HCl (Hydroxyzine Hcl 25 Mg Tab) 25 mg PO Q4H PRN PRN Reason: Anxiety Stop: 03/01/21 16:29 Lisinopril (Lisinopril 40 Mg Tab) 40 mg PO QAM [facility] Stop: 03/02/21 08:59 Last Admin: 02/08/21 10:03 Dose: 40 mg Documented by: [place] Carbonate ([place] Carbonate 300 Mg Tab) 600 mg PO BID [facility] Stop: 03/07/21 20:59 Last Admin: 02/08/21 10:03 Dose: 600 mg Documented by: Lorazepam (Lorazepam 2 Mg/Ml Vial (Im Use)) 2 mg IM Q6 PRN PRN Reason: Agitation Stop: 03/01/21 18:05 Last Admin: 02/03/21 21:20 Dose: 2 mg Documented by: Lorazepam (Lorazepam 1 Mg Tab) 2 mg PO Q4 PRN PRN Reason: Anxiety/Agitation Stop: 03/01/21 18:14 Last Admin: 02/06/21 09:50 Dose: 2 mg Documented by: Magnesium Hydroxide (Magnesium Hydroxide Susp 30 Ml Udc) 30 ml PO DAILY PRN PRN Reason: Constipation Stop: 03/01/21 16:29 Nicotine Polacrilex (Nicotine Polacrilex 2 Mg Gum) 1 piece MT Q2HWA PRN PRN Reason: smoking Stop: 03/03/21 10:16 Last Admin: 02/08/21 11:33 Dose: 1 piece Documented by: Olanzapine (Olanzapine 10 Mg Tab) 10 mg PO QAM [facility] Stop: 03/10/21 08:59 Last Admin: 02/08/21 10:04 Dose: 10 mg Documented by: Olanzapine (Olanzapine 5 Mg Tablet) 15 mg PO HS [facility] Stop: 03/09/21 21:59 Last Admin: 02/07/21 21:25 Dose: 15 mg Documented by: Pantoprazole Sodium (Pantoprazole 40 Mg Tab) 40 mg PO BID [facility] Stop: 03/01/21 20:59 Last Admin: 02/08/21 10:04 Dose: 40 mg Documented by: Sodium Chloride (Sodium Chloride 0.65% Na Soln 45 Ml ([place])) 1 - 2 sprays NA PRN PRN PRN Reason: Nasal Dryness/Congestion Stop: 03/01/21 16:29 Tramadol HCl (Tramadol Hcl 50 Mg Tablet) 100 mg PO BID PRN PRN Reason: Pain Stop: 03/03/21 10:18 Last Admin: 02/07/21 20:49 Dose: 100 mg Documented by: Mental Health & Subst Abuse Tx Psychiatrist Name of Psychiatrist: [facility] - Dr. Christianson Psychiatrist's Date of Appointment with Psychiatrist: 03/04/21 Time of Appointment with Psychiatrist: 10:10 a.m. Psychiatric Appointment Comment: Telehealth - on the cancellation list for an earlier appt Post Discharge Appointments Primary Care Physician Name Of Family Doctor: Zahida - Dr. Don Coffman (will see SRIDEVI Isaacs) Primary Care Date of Appointment with PCP: 02/17/21 Time of Appointment with PCP: 9:05 AM Provider Appointment Comment: [address], [place] Contact Information Discharge Discharge Address: [facility] [place] [address]
[2021-02-08] MEDS: hydrOXYzine HCl 25 MG TAB PO PRN (20:53)
[2021-02-08] MEDS: diphenhydrAMINE Capsule 25 MG CAP PO SCH (20:53)
[2021-02-08] MEDS: OLANZapine 5 MG TABLET PO SCH (20:54)
[2021-02-09] MEDS: amLODIPine BESYLATE 5 MG TAB PO SCH (07:37)
[2021-02-09] MEDS: GABAPENTIN 400 MG CAP PO SCH (07:37)
[2021-02-09] MEDS: OLANZapine 10 MG TAB PO SCH (07:38)
[2021-02-09] MEDS: lisinopril 40 MG TAB PO SCH (07:38)
[2021-02-09] MEDS: LITHIUM CARBONATE 300 MG TAB PO SCH ×2 (07:38→21:20)
[2021-02-09] MEDS: PANTOprazole 40 MG TAB PO SCH ×2 (07:39→21:20)
[2021-02-09] MEDS: traMADol HCL 50 MG TABLET PO PRN (07:39)
--- NOTE | 2021-02-09 11:29 | Psychiatric Progress Note ---
Date of Service February 09, 2021 Impression / Recommendations Impression This is a 55-year-old male with bipolar disorder currently in a manic episode. Patient is being stabilized on lithium as well as second-generation antipsychotics.Patient making incremental progress (1) Shi: (2) Bipolar 1 disorder: The patient was admitted to the [facility] ([facility] unit) on every 15 minute checks (behavioral with suicide precautions for safety. The patient will participate in group, recreational, and milieu therapies and will be offered additional individual and family sessions as clinically appropriate. 01/31/2021ontinue current medication regimen consisting 750 mg of lithium daily, Seroquel increased to 500 mg nightly. 02/01/2021We will plan to draw lithium level tomorrow. We will also plan to interspace patient's lithium to more evenly distributed medication regimen. We will increase Seroquel to 600 mg nightly 02/02/2021ithium level low, will increase dose to 450 mg p.o. twice daily. Will leave Seroquel dose at 600 mg p.o. nightly for now. 02/03/2021eroquel increased to 100 mg p.o. every morning, 600 mg p.o. nightly. 02/04/2021.m. Seroquel increased to 200 mg p.o. every morning. Nightly Sero quel remains at 600 mg. 02/05/2021ithium increased to 600 mg p.o. twice daily 02/06/2021we will continue current regimen, patient making slow progress although seems to have more insight into his illness as the days go on 02/07/2021atient continues to do better at times but does have occasional outbursts. Will discontinue Seroquel in favor of Zyprexa. Will discontinue Seroquel tonight and start with 15 mg of Zyprexa nightly. 02/08/2021atient tolerating cross-taper to Zyprexa well. We will continue on current dose of Zyprexa and lithium for now. 02/09/2021atient continues to do well on current regimen. Making incremental progress. We will anticipate discharge in the coming days. Interval History Chief Complaint "I think I am doing a lot better DrJamarcus". Review of Systems Sleep Information Total Hours of Sleep: 6 Sleep Comments: pt given vistaril and benadryl per rn. pt on q-15 minute checks Meal Information Percent Meal Consumed - Breakfast: 100 Percent Meal Consumed - Lunch: 100 Percent Meal Consumed - Dinner: 100 Nutrition Comment: per meal record Subjective Subjective Patient seen, chart reviewed and case discussed with treatment team, nursing and social work. Patient reports a good night of sleep and strong appetite. No side effects reported or observed. Regarding mood, patient reports some improvement which they attribute to the medications as well as the therapy they have received on the unit. Patient significantly less manic today. Endorses feeling stable without racing thoughts or grandiose ideas. Patient is thankful for the care he has received here, and is hoping to be discharged in the coming days. Patient was informed that his lithium level is now within normal limits, and if he continues to be in good behavioral control without further psychiatric symptoms that we would be considering discharge in the coming days. I spent 30 minutes with the patient, 50% of which was dedicated to counselling and coordination of care. Physical Exam Psychiatric Orientation: alert Apperance: appropriately dressed Eye Contact: good eye contact Speech: + pressured speech Affect: + elated affect Mood: + anxious mood Thought Process: + tangential thought process and + flight of ideas Thought Content: + preoccupation, + delusions and + ideas of reference Suicidal Thoughts: denies suicidal thoughts Homicidal Thoughts: denies homicidal thoughts Hallucinations: no auditory hallucinations Cognition: recent memory grossly intact Estimated Intelligence: average estimated intelligence Insight: + limited insight Judgement: + poor judgement Vital Signs (Past 24 Hours) Last Vital Signs Temp 37.4 C 02/09/21 06:43 Pulse 96 H 02/09/21 06:44 Resp 18 02/09/21 06:43 BP 130/88 02/09/21 06:44 Pulse Ox 97 01/30/21 19:19 Results & Data (U) Current Inpatient Medications Current Inpatient Medications: Current Inpatient Medications Acetaminophen (Acetaminophen 325 Mg Tab) 650 mg PO Q4H PRN PRN Reason: Headache or Minor Fever Stop: 03/01/21 16:29 Last Admin: 02/07/21 16:57 Dose: 650 mg Documented by: Al Hydrox/Mg Hydrox/Simethicone (Aluminum/Magnesium Susp 30 Ml Udc) 30 ml PO Q4H PRN PRN Reason: GI Upset Stop: 03/01/21 16:29 Last Admin: 02/01/21 06:53 Dose: 30 ml Documented by: Amlodipine Besylate (Amlodipine Besylate 5 Mg Tab) 10 mg PO QAM [facility] Stop: 03/01/21 18:09 Last Admin: 02/09/21 07:37 Dose: 10 mg Documented by: Benztropine Mesylate (Benztropine Mesylate 1 Mg Tab) 1 mg PO Q6 PRN PRN Reason: EPS Stop: 03/01/21 17:55 Last Admin: 01/31/21 07:53 Dose: 1 mg Documented by: Benztropine Mesylate (Benztropine Mesylate 1 Mg/Ml 2 Ml Amp) 1 mg IM Q6 PRN PRN Reason: Agitation Stop: 03/01/21 18:05 Bismuth Subsalicylate (Bismuth Subsalicylate Liqd 236 Ml) 15 ml PO PRN PRN PRN Reason: Loose Stool Stop: 03/01/21 16:29 Diphenhydramine HCl (Diphenhydramine 50 Mg/Ml Vial) 100 mg IM Q6 PRN PRN Reason: Allergic Reaction Stop: 03/05/21 22:31 Diphenhydramine HCl (Diphenhydramine Capsule 25 Mg Cap) 50 mg PO HS [facility] Stop: 03/09/21 21:59 Last Admin: 02/08/21 20:53 Dose: 50 mg Documented by: Gabapentin (Gabapentin 400 Mg Cap) 400 [facility] Stop: 03/02/21 08:59 Last Admin: 02/09/21 07:37 Dose: 400 mg Documented by: Haloperidol (Haloperidol 5 Mg Tab) 5 mg PO Q6 PRN PRN Reason: agitation Stop: 03/06/21 08:49 Last Admin: 02/05/21 12:17 Dose: 5 mg Documented by: Haloperidol Lactate (Haloperidol Lactate 5 Mg/Ml 1 Ml Vial) 5 mg IM Q6 PRN PRN Reason: Agitation Stop: 03/01/21 18:17 Hydroxyzine HCl (Hydroxyzine Hcl 25 Mg Tab) 50 mg PO HSZ PRN PRN Reason: Insomnia Stop: 03/01/21 16:29 Last Admin: 02/08/21 20:53 Dose: 50 mg Documented by: Hydroxyzine HCl (Hydroxyzine Hcl 25 Mg Tab) 25 mg PO Q4H PRN PRN Reason: Anxiety Stop: 03/01/21 16:29 Lisinopril (Lisinopril 40 Mg Tab) 40 mg PO QAM [facility] Stop: 03/02/21 08:59 Last Admin: 02/09/21 07:38 Dose: 40 mg Documented by: [place] Carbonate ([place] Carbonate 300 Mg Tab) 600 mg PO BID [facility] Stop: 03/07/21 20:59 Last Admin: 02/09/21 07:38 Dose: 600 mg Documented by: Lorazepam (Lorazepam 2 Mg/Ml Vial (Im Use)) 2 mg IM Q6 PRN PRN Reason: Agitation Stop: 03/01/21 18:05 Last Admin: 02/03/21 21:20 Dose: 2 mg Documented by: Lorazepam (Lorazepam 1 Mg Tab) 2 mg PO Q4 PRN PRN Reason: Anxiety/Agitation Stop: 03/01/21 18:14 Last Admin: 02/06/21 09:50 Dose: 2 mg Documented by: Magnesium Hydroxide (Magnesium Hydroxide Susp 30 Ml Udc) 30 ml PO DAILY PRN PRN Reason: Constipation Stop: 03/01/21 16:29 Nicotine Polacrilex (Nicotine Polacrilex 2 Mg Gum) 1 piece MT Q2HWA PRN PRN Reason: smoking Stop: 03/03/21 10:16 Last Admin: 02/08/21 11:33 Dose: 1 piece Documented by: Olanzapine (Olanzapine 10 Mg Tab) 10 mg PO QAM [facility] Stop: 03/10/21 08:59 Last Admin: 02/09/21 07:38 Dose: 10 mg Documented by: Olanzapine (Olanzapine 5 Mg Tablet) 15 mg PO HS [facility] Stop: 03/09/21 21:59 Last Admin: 02/08/21 20:54 Dose: 15 mg Documented by: Pantoprazole Sodium (Pantoprazole 40 Mg Tab) 40 mg PO BID [facility] Stop: 03/01/21 20:59 Last Admin: 02/09/21 07:39 Dose: 40 mg Documented by: Sodium Chloride (Sodium Chloride 0.65% Na Soln 45 Ml ([place])) 1 - 2 sprays NA PRN PRN PRN Reason: Nasal Dryness/Congestion Stop: 03/01/21 16:29 Tramadol HCl (Tramadol Hcl 50 Mg Tablet) 50 mg PO BID PRN PRN Reason: Pain Stop: 03/03/21 10:18 Last Admin: 02/09/21 07:39 Dose: 50 mg Documented by: Mental Health & Subst Abuse Tx Psychiatrist Name of Psychiatrist: [facility] - Dr. Christianson Psychiatrist's Date of Appointment with Psychiatrist: 03/04/21 Time of Appointment with Psychiatrist: 10:10 a.m. Psychiatric Appointment Comment: Telehealth - on the cancellation list for an earlier appt Post Discharge Appointments Primary Care Physician Name Of Family Doctor: Zahida - Dr. Don Coffman (will see SRIDEVI Isaacs) Primary Care Date of Appointment with PCP: 02/17/21 Time of Appointment with PCP: 9:05 AM Provider Appointment Comment: [address], [place] Contact Information Discharge Discharge Address: [facility] [place] [address]
[2021-02-09] MEDS: NICOTINE POLACRILEX 2 MG GUM MT PRN ×2 (13:24→19:13)
[2021-02-09] MEDS: ACETAMINOPHEN 325 MG TAB PO PRN (19:12)
[2021-02-09] MEDS: diphenhydrAMINE Capsule 25 MG CAP PO SCH (21:19)
[2021-02-09] MEDS: hydrOXYzine HCl 25 MG TAB PO PRN (21:19)
[2021-02-09] MEDS: OLANZapine 5 MG TABLET PO SCH (21:20)
[2021-02-10] MEDS: amLODIPine BESYLATE 5 MG TAB PO SCH (08:29)
[2021-02-10] MEDS: LITHIUM CARBONATE 300 MG TAB PO SCH ×2 (08:30→20:34)
[2021-02-10] MEDS: GABAPENTIN 400 MG CAP PO SCH (08:30)
[2021-02-10] MEDS: lisinopril 40 MG TAB PO SCH (08:30)
[2021-02-10] MEDS: OLANZapine 10 MG TAB PO SCH ×2 (08:31→20:34)
[2021-02-10] MEDS: PANTOprazole 40 MG TAB PO SCH ×2 (08:31→20:34)
[2021-02-10] MEDS: NICOTINE POLACRILEX 2 MG GUM MT PRN ×2 (09:40→19:09)
--- NOTE | 2021-02-10 11:16 | Psychiatric Progress Note ---
Date of Service February 10, 2021 Impression / Recommendations Impression This is a 55-year-old male with bipolar disorder currently in a manic episode. Patient is being stabilized on lithium as well as second-generation antipsychotics.Patient continues to do well on the unit, will start D/C planning. (1) Shi: (2) Bipolar 1 disorder: The patient was admitted to the [facility] ([facility], [place], operated by [facility]) on every 15 minute checks (behavioral with suicide precautions for safety. The patient will participate in group, recreational, and milieu therapies and will be offered additional individual and family sessions as clinically appropriate. 01/31/2021ontinue current medication regimen consisting 750 mg of lithium daily, Seroquel increased to 500 mg nightly. 02/01/2021We will plan to draw lithium level tomorrow. We will also plan to interspace patient's lithium to more evenly distributed medication regimen. We will increase Seroquel to 600 mg nightly 02/02/2021ithium level low, will increase dose to 450 mg p.o. twice daily. Will leave Seroquel dose at 600 mg p.o. nightly for now. 02/03/2021eroquel increased to 100 mg p.o. every morning, 600 mg p.o. nightly. 02/04/2021.m. Seroquel increased to 200 mg p.o. every morning. Nightly Seroquel remains at 600 mg. 02/05/2021ithium increased to 600 mg p.o. twice daily 02/06/2021we will continue current regimen, patient making slow progress although seems to have more insight into his illness as the days go on 02/07/2021atient continues to do better at times but does have occasional outbursts. Will discontinue Seroquel in favor of Zyprexa. Will discontinue Seroquel tonight and start with 15 mg of Zyprexa nightly. 02/08/2021atient tolerating cross-taper to Zyprexa well. We will continue on current dose of Zyprexa and lithium for now. 02/09/2021atient continues to do well on current regimen. Making incremental progress. We will anticipate discharge in the coming days. 02/10/21-- Patient continues to do well and be in good behavioral control. Medications will remain the same and we will anticipate discharge tomorrow. Interval History Chief Complaint "Hey Doc I'm feeling good". Review of Systems Sleep Information Total Hours of Sleep: 7.5 Sleep Comments: pt given vistaril and benadryl per rn. pt on q-15 minute checks Meal Information Percent Meal Consumed - Breakfast: 100 Percent Meal Consumed - Lunch: 100 Percent Meal Consumed - Dinner: 100 Nutrition Comment: per meal record Subjective Subjective Patient seen, chart reviewed and case discussed with treatment team, nursing and social work. Patient reports a good night of sleep and strong appetite. No side effects reported or observed. Patient is complaint with his medications and shows a desire to continue taking his medication. He reports that he likes the way it makes him feel. Regarding mood, patient reports some improvement which they attribute to the medications as well as the therapy they have received on the unit. He is engaging with peers appropriately, he is attending groups without issue. He has not voiced or displayed any manic symptoms for the last 2 days. I spent 30 minutes with the patient, 50% of which was dedicated to counselling and coordination of care. Physical Exam Psychiatric Orientation: alert Apperance: appropriately dressed Eye Contact: good eye contact Speech: + pressured speech Affect: + elated affect Mood: + anxious mood Thought Process: + tangential thought process and + flight of ideas Thought Content: + preoccupation, + delusions and + ideas of reference Suicidal Thoughts: denies suicidal thoughts Homicidal Thoughts: denies homicidal thoughts Hallucinations: no auditory hallucinations Cognition: recent memory grossly intact Estimated Intelligence: average estimated intelligence Insight: + limited insight Judgement: + poor judgement Vital Signs (Past 24 Hours) Last Vital Signs Temp 36.1 C L 02/09/21 20:00 Pulse 96 H 02/09/21 06:44 Resp 18 02/09/21 06:43 BP 130/88 02/09/21 06:44 Pulse Ox 97 01/30/21 19:19 Results & Data ([facility]) Current Inpatient Medications Current Inpatient Medications: Current Inpatient Medications Acetaminophen (Acetaminophen 325 Mg Tab) 650 mg PO Q4H PRN PRN Reason: Headache or Minor Fever Stop: 03/01/21 16:29 Last Admin: 02/09/21 19:12 Dose: 650 mg Documented by: Al Hydrox/Mg Hydrox/Simethicone (Aluminum/Magnesium Susp 30 Ml Udc) 30 ml PO Q4H PRN PRN Reason: GI Upset Stop: 03/01/21 16:29 Last Admin: 02/01/21 06:53 Dose: 30 ml Documented by: Amlodipine Besylate (Amlodipine Besylate 5 Mg Tab) 10 mg PO QAM TRACY Stop: 03/01/21 18:09 Last Admin: 02/10/21 08:29 Dose: 10 mg Documented by: Benztropine Mesylate (Benztropine Mesylate 1 Mg Tab) 1 mg PO Q6 PRN PRN Reason: EPS Stop: 03/01/21 17:55 Last Admin: 01/31/21 07:53 Dose: 1 mg Documented by: Benztropine Mesylate (Benztropine Mesylate 1 Mg/Ml 2 Ml Amp) 1 mg IM Q6 PRN PRN Reason: Agitation Stop: 03/01/21 18:05 Bismuth Subsalicylate (Bismuth Subsalicylate Liqd 236 Ml) 15 ml PO PRN PRN PRN Reason: Loose Stool Stop: 03/01/21 16:29 Diphenhydramine HCl (Diphenhydramine 50 Mg/Ml Vial) 100 mg IM Q6 PRN PRN Reason: Allergic Reaction Stop: 03/05/21 22:31 Diphenhydramine HCl (Diphenhydramine Capsule 25 Mg Cap) 50 mg PO HS TRACY Stop: 03/09/21 21:59 Last Admin: 02/09/21 21:19 Dose: 50 mg Documented by: Gabapentin (Gabapentin 400 Mg Cap) [facility] Stop: 03/02/21 08:59 Last Admin: 02/10/21 08:30 Dose: 400 mg Documented by: Haloperidol (Haloperidol 5 Mg Tab) 5 mg PO Q6 PRN PRN Reason: agitation Stop: 03/06/21 08:49 Last Admin: 02/05/21 12:17 Dose: 5 mg Documented by: Haloperidol Lactate (Haloperidol Lactate 5 Mg/Ml 1 Ml Vial) 5 mg IM Q6 PRN PRN Reason: Agitation Stop: 03/01/21 18:17 Hydroxyzine HCl (Hydroxyzine Hcl 25 Mg Tab) 50 mg PO HSZ PRN PRN Reason: Insomnia Stop: 03/01/21 16:29 Last Admin: 02/09/21 21:19 Dose: 50 mg Documented by: Hydroxyzine HCl (Hydroxyzine Hcl 25 Mg Tab) 25 mg PO Q4H PRN PRN Reason: Anxiety Stop: 03/01/21 16:29 Lisinopril (Lisinopril 40 Mg Tab) 40 mg PO QAM [facility] Stop: 03/02/21 08:59 Last Admin: 02/10/21 08:30 Dose: 40 mg Documented by: Hammon Carbonate (Hammon Carbonate 300 Mg Tab) 600 mg PO BID TRACY Stop: 03/07/21 20:59 Last Admin: 02/10/21 08:30 Dose: 600 mg Documented by: Lorazepam (Lorazepam 2 Mg/Ml Vial (Im Use)) 2 mg IM Q6 PRN PRN Reason: Agitation Stop: 03/01/21 18:05 Last Admin: 02/03/21 21:20 Dose: 2 mg Documented by: Lorazepam (Lorazepam 1 Mg Tab) 2 mg PO Q4 PRN PRN Reason: Anxiety/Agitation Stop: 03/01/21 18:14 Last Admin: 02/06/21 09:50 Dose: 2 mg Documented by: Magnesium Hydroxide (Magnesium Hydroxide Susp 30 Ml Udc) 30 ml PO DAILY PRN PRN Reason: Constipation Stop: 03/01/21 16:29 Nicotine Polacrilex (Nicotine Polacrilex 2 Mg Gum) 1 piece MT Q2HWA PRN PRN Reason: smoking Stop: 03/03/21 10:16 Last Admin: 02/10/21 09:40 Dose: 1 piece Documented by: Olanzapine (Olanzapine 10 Mg Tab) 10 mg PO QAM TRACY Stop: 03/10/21 08:59 Last Admin: 02/10/21 08:31 Dose: 10 mg Documented by: Olanzapine (Olanzapine 5 Mg Tablet) 15 mg PO HS [facility] Stop: 03/09/21 21:59 Last Admin: 02/09/21 21:20 Dose: 15 mg Documented by: Pantoprazole Sodium (Pantoprazole 40 Mg Tab) 40 mg PO BID TRACY Stop: 03/01/21 20:59 Last Admin: 02/10/21 08:31 Dose: 40 mg Documented by: Sodium Chloride (Sodium Chloride 0.65% Na Soln 45 Ml ([place])) 1 - 2 sprays NA PRN PRN PRN Reason: Nasal Dryness/Congestion Stop: 03/01/21 16:29 Tramadol HCl (Tramadol Hcl 50 Mg Tablet) 50 mg PO BID PRN PRN Reason: Pain Stop: 03/03/21 10:18 Last Admin: 02/09/21 07:39 Dose: 50 mg Documented by: Mental Health & Subst Abuse Tx Psychiatrist Name of Psychiatrist: [facility] - Dr. Christianson Psychiatrist's Date of Appointment with Psychiatrist: 03/04/21 Time of Appointment with Psychiatrist: 10:10 a.m. Psychiatric Appointment Comment: Telehealth - on the cancellation list for an earlier appt Pelletizer Tender Name of Pelletizer Tender: [facility] Phone Number for Pelletizer Tender: [phone] Post Discharge Appointments Primary Care Physician Name Of Family Doctor: [facility] - Dr. Don Coffman (will see SRIDEVI Isaacs) Primary Care Date of Appointment with PCP: 02/17/21 Time of Appointment with PCP: 9:05 AM Provider Appointment Comment: [address], [place] Contact Information Discharge Discharge Address: [facility] [place] [address]
[2021-02-10] MEDS: hydrOXYzine HCl 25 MG TAB PO PRN (20:34)
[2021-02-10] MEDS ORDERED: OLANZapine 10 MG TAB PO SCH (22:00)
[2021-02-11] MEDS: traMADol HCL 50 MG TABLET PO PRN (08:01)
[2021-02-11] MEDS ORDERED: OLANZAPINE 2.5 MG TAB PO SCH (09:00)
[2021-02-11] MEDS: amLODIPine BESYLATE 5 MG TAB PO SCH (09:01)
[2021-02-11] MEDS: GABAPENTIN 400 MG CAP PO SCH (09:01)
[2021-02-11] MEDS: LITHIUM CARBONATE 300 MG TAB PO SCH (09:02)
[2021-02-11] MEDS: lisinopril 40 MG TAB PO SCH (09:02)
[2021-02-11] MEDS: PANTOprazole 40 MG TAB PO SCH (09:02)
[2021-02-11] MEDS: OLANZapine 10 MG TAB PO SCH (09:02)
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
[2021-02-11] MEDS ORDERED: FLUARIX QUADRIVALENT 0.5 ML SYR IM ONE (11:06)
== END 2021-02-11 13:54 | disposition home or self-care (01) | DRG 885 ==
LOC: SUATTDRO 16:32 → 3S 16:32
DX: Z81.8 Family history of other mental and behavioral disorders; Z88.0 Allergy status to penicillin; F31.10 Bipolar disorder, current episode manic without psychotic features, unspecified